=== PATIENT | male | born 1960 | race Two or more races ===

== ENCOUNTER 2020-07-14 10:06 | Outpatient (REF) | payer OTHER, SELFPAY ==
[2020-07-14 11:20] LABS: Alanine Aminotransferase 42 U/L (0-40); Albumin Level 4.4 g/dL (3.5-5.0); Alkaline Phosphatase 82 U/L (39-117); Anion Gap 11 (12-20); Aspartate Amino Transferase 30 U/L (5-37); Bilirubin Total 0.5 mg/dL (0.0-1.0); Blood Urea Nitrogen 14 mg/dL (9-16); Calcium 9.5 mg/dL (8.4-10.2); Carbon Dioxide 25 mmol/L (22-29); Chloride 106 mmol/L (96-108); Cholesterol 197 mg/dL; Estimated Glomerular Filt Rate > 60; Glucose Fasting 112 mg/dL (60-99); HDL Cholesterol 32 mg/dL; LDL Cholesterol Calculated 115 mg/dl; Potassium 4.8 mmol/l (3.3-5.1); Sodium 137 mmol/L (135-145); Total Protein 7.5 g/dL (6.5-8.0); Triglycerides 252 mg/dL
[2020-07-14 11:42] LABS: Vitamin D 25-OH Total 25.3 ng/mL (>30)
== END 2020-07-14 10:07 | disposition home or self-care (01) ==
LOC: HO.LAB 10:06
PROVIDERS: PCP Internal Medicine; Visit Provider Internal Medicine
DX: E78.00 Pure hypercholesterolemia, unspecified (principal); E55.9 Vitamin D deficiency, unspecified; I10 Essential (primary) hypertension
CPT/HCPCS: 80053; 80061; 82306

== ENCOUNTER 2020-10-18 10:48 | Outpatient (REF) | payer OTHER, SELFPAY | END 2020-10-18 10:49 | disposition home or self-care (01) | LOC: HO.LAB 10:48 | PROVIDERS: PCP Internal Medicine; Visit Provider Internal Medicine | DX: Z20.822 Contact with and (suspected) exposure to COVID-19 (principal) | CPT/HCPCS: 36415; C9803; U0003 ==

== ENCOUNTER 2020-11-21 09:48 | Outpatient (REF) | payer OTHER, SELFPAY ==
[2020-11-21 11:31] LABS: Alanine Aminotransferase 41 U/L (0-40); Albumin Level 4.3 g/dL (3.5-5.0); Alkaline Phosphatase 81 U/L (39-117); Anion Gap 12 (12-20); Aspartate Amino Transferase 29 U/L (5-37); Bilirubin Total 0.5 mg/dL (0.0-1.0); Blood Urea Nitrogen 10 mg/dL (9-16); Calcium 9.2 mg/dL (8.4-10.2); Carbon Dioxide 27 mmol/L (22-29); Chloride 106 mmol/L (96-108); Cholesterol 128 mg/dL; Estimated Glomerular Filt Rate > 60; Glucose Fasting 112 mg/dL (60-99); HDL Cholesterol 28 mg/dL; LDL Cholesterol Calculated 73 mg/dl; Potassium 4.7 mmol/L (3.3-5.1); Sodium 140 mmol/L (135-145); Total Protein 7.3 g/dL (6.5-8.0); Triglycerides 139 mg/dL
== END 2020-11-21 09:49 | disposition home or self-care (01) ==
LOC: HO.LAB 09:48
PROVIDERS: PCP Internal Medicine; Visit Provider Internal Medicine
DX: E78.2 Mixed hyperlipidemia (principal)
CPT/HCPCS: 36415; 80053; 80061

== ENCOUNTER 2021-05-31 09:11 | Outpatient (REF) | payer OTHER, SELFPAY ==
[2021-05-31 10:05] LABS: Alanine Aminotransferase 38 U/L (0-40); Albumin Level 4.2 g/dL (3.5-5.0); Alkaline Phosphatase 69 U/L (39-117); Anion Gap 14 (12-20); Aspartate Amino Transferase 26 U/L (5-37); Bilirubin Total 0.6 mg/dL (0.0-1.0); Blood Urea Nitrogen 12 mg/dL (9-16); Calcium 9.2 mg/dL (8.4-10.2); Carbon Dioxide 28 mmol/L (22-29); Chloride 102 mmol/L (96-108); Cholesterol 197 mg/dL; Estimated Glomerular Filt Rate > 60; Glucose Fasting 101 mg/dL (60-99); HDL Cholesterol 30 mg/dL; LDL Cholesterol Calculated 128 mg/dl; Potassium 4.6 mmol/L (3.3-5.1); Sodium 139 mmol/L (135-145); Total Protein 6.7 g/dL (6.5-8.0); Triglycerides 199 mg/dL
== END 2021-05-31 09:12 | disposition home or self-care (01) ==
LOC: HO.LAB 09:11
PROVIDERS: PCP Internal Medicine; Visit Provider Internal Medicine
DX: E78.2 Mixed hyperlipidemia (principal); E78.5 Hyperlipidemia, unspecified
CPT/HCPCS: 36415; 80053; 80061

== ENCOUNTER 2021-06-14 09:12 | Outpatient (REF) | payer OTHER, SELFPAY ==
--- NOTE | ~2021-06-14 | XR_ITS ---
EXAMINATION: XR CHEST CLINICAL INFORMATION: Asthma. COMPARISON: None TECHNIQUE: 2 views of the chest were obtained. FINDINGS: The lungs are clear. The cardiomediastinal silhouette is normal in size. There is no pleural effusion or pneumothorax. No acute osseous abnormality. XR/XR chest 2V IMPRESSION: No acute cardiopulmonary findings.
== END 2021-06-14 09:13 | disposition home or self-care (01) ==
LOC: HO.XRAY 09:12
PROVIDERS: PCP Internal Medicine; Visit Provider Internal Medicine
DX: J45.909 Unspecified asthma, uncomplicated (principal)
CPT/HCPCS: 71046

== ENCOUNTER 2022-03-02 07:29 | Outpatient (REF) | payer OTHER, SELFPAY ==
--- NOTE | ~2022-03-02 | XR_ITS ---
EXAMINATION: XR CHEST CLINICAL INFORMATION: Cough COMPARISON: Previous chest x-ray May 2021 TECHNIQUE: 2 views of the chest were obtained. FINDINGS: The cardiac and mediastinal contours are normal. The lungs are clear. There is no pleural effusion or pneumothorax. There are degenerative changes of the spine. XR/XR chest 2V IMPRESSION: No evidence for acute disease in the chest.
[2022-03-02 08:30] LABS: Alanine Aminotransferase 33 U/L (0-40); Albumin Level 4.2 g/dL (3.5-5.0); Alkaline Phosphatase 79 U/L (39-117); Anion Gap 13 (12-20); Aspartate Amino Transferase 25 U/L (5-37); Bilirubin Total 0.6 mg/dL (0.0-1.0); Blood Urea Nitrogen 12 mg/dL (9-16); Calcium 9.6 mg/dL (8.4-10.2); Carbon Dioxide 26 mmol/L (22-29); Chloride 104 mmol/L (96-108); Cholesterol 176 mg/dL; Estimated Glomerular Filt Rate > 60; Glucose Fasting 97 mg/dL (60-99); HDL Cholesterol 25 mg/dL; LDL Cholesterol Calculated 79 mg/dl; Potassium 4.6 mmol/L (3.3-5.1); Sodium 138 mmol/L (135-145); Total Protein 7.1 g/dL (6.5-8.0); Triglycerides 363 mg/dL
== END 2022-03-02 07:30 | disposition home or self-care (01) ==
LOC: HO.XRAY 07:29
PROVIDERS: PCP Internal Medicine; Visit Provider Internal Medicine
DX: R05.9 Cough, unspecified (principal); I10 Essential (primary) hypertension; E78.5 Hyperlipidemia, unspecified
CPT/HCPCS: 36415; 71046; 80053; 80061

== ENCOUNTER → 2022-07-30 13:40 | Outpatient (REF) | payer OTHER, SELFPAY ==
--- NOTE | 2022-07-30 13:44 | CA_ITS ---
Transthoracic Echocardiogram Patient (Last, First, Middle): Phillip Buchanan, Gender: Male Date of : 1960 Age: 62 Procedure Date: 07/30/2022 Procedure Type: Transthoracic Echocardiogram Location: OP Height: 167.64 cm Weight: 104.33 kg BSA: 2.12 m2 Heart Rate: 70 bpm BP: 128 / 82 mmHg Devops Solutions Architect: SB Referring MD: Leslye Mcgowan MD Symptoms: R01.1 - Cardiac murmur, unspecified Study Quality: Fair ECG Rhythm: Sinus Conclusions: - The left ventricular systolic function is normal. The calculated ejection fraction is 62% by biplane method. - Mildly increased right ventricular cavity size. - No obvious valvular pathology seen on this study. - There is mild dilatation of the ascending aorta measuring 3.90 cm. Findings Left Ventricle Normal left ventricular cavity size. The left ventricular systolic function is normal. The calculated ejection fraction is 62% by biplane method. There is no evidence of regional wall motion abnormalities. Diastolic function is normal for age. There is mild septal asymmetric hypertrophy. LV peak global longitudinal strain measurement does not appear reliable. Right Ventricle Mildly increased right ventricular cavity size. There is normal right ventricular systolic function. Atria Both atria are normal in size. Aortic Valve There is a normal trileaflet aortic valve. There is no aortic valve stenosis. There is no aortic valve regurgitation. Mitral Valve The mitral valve appears normal. There is no mitral valve regurgitation. There is no mitral valve stenosis. Pulmonic Valve The pulmonic valve is likely normal. Tricuspid Valve Normal tricuspid valve structure. There is mild tricuspid valve regurgitation. There is no evidence of pulmonary hypertension. Great Vessels There is mild dilatation of the ascending aorta measuring 3.90 cm. Venous The inferior vena cava was not well visualized. Pericardium/Pleural There is no evidence of pericardial effusion. Prior Study Comparison No prior study available for comparison. Recommendations, Care & Conclusions No obvious valvular pathology seen on this study. Measurements 2D Linear Measurements IVSd: 1.24 0.6-0.9/0.6-1.0 cm LVIDd: 5.07 3.9-5.3/4.2-5.9 cm LVIDd Index: 2.39 2.4-3.2/2.2-3.1 cm/m2 LVIDs: 3.61 2.0-3.6 cm LVPWd: 0.78 0.7-1.1 cm LA Diam: 3.70 2.7-3.8/3.0-4.0 cm LAIDs Index: 1.75 1.5-2.3 cm/m2 LV Mass: 235.75 67-162/88-224 g LV Mass Index: 111.20 43-95/49-115 g/m2 LVOT Diam: 2.40 3.0+(-)1.3 cm 2D Systolic Function EF 4C: 59.10 >55% EF 2C: 66.10 >55% EF BiP: 62.10 >55% Mitral Valve MV Pk E: 0.61 MV PK A: 0.67 MV Decel Time: 190.00 E/A: 0.90 E'Lateral: 11.40 E'Medial: 4.35 E/E' Med: 14.10 E/E' Lat: 5.40 PHT: 56.00 MVA PHT: 3.93 Decel [place]: 3.21 Aortic Valve AoV Pk Zeeshan: 1.44 AoV Mn Zeeshan: 0.92 AoV VTI: 0.28 AoV Pk Grad: 8.00 Aov Mn Grad: 4.00 RADU Cont.VTI: 3.81 LVOT LVOT Pk Zeeshan: 1.24 LVOT Mn Zeeshan: 0.83 LVOT VTI: 0.23 LVOT Pk Grad: 6.00 LVOT Mn Grad: 3.00 LVOT Diam: 2.40 LVOT Area: 4.52 Diastolic Function MV Pk E: 0.61 MV Pk A: 0.67 E/A: 0.90 E'Medial: 4.35 E/E' Med: 14.10 E' Laterial: 11.40 E/E' Lat: 5.40 Right Ventricle TAPSE (mm): 19.70 TVS' Zeeshan: 9.14 Tricuspid Valve TR Pk Zeeshan: 2.15 TR Pk Grad: 18.00 RA Press: 3.00 RVSP: 21.00 Great Vessels Aorta Sinus of Valsalva: 3.30 2.0-3.5 cm Ao Asc: 3.90 2.1-3.4 cm Pulmonary Valve PV Pk Zeeshan: 1.02 Peak PV Grad: 4.00 Updated in Other Vendor System with Status of Final Chapincito Baumann MD electronically signed on 07/31/2022 11:56:39 AM with status of Final
== END ==
LOC: HO.CARD 13:40
PROVIDERS: PCP Internal Medicine; Visit Provider Internal Medicine
DX: R01.1 Cardiac murmur, unspecified (principal); R60.0 Localized edema
CPT/HCPCS: 93306

== ENCOUNTER → 2022-10-18 09:07 | Outpatient (BNVA) | payer OTHER, SELFPAY | PROVIDERS: PCP Internal Medicine; Referring Provider Internal Medicine; Visit Provider Internal Medicine | DX: I77.810 Thoracic aortic ectasia (principal); I10 Essential (primary) hypertension; G47.33 Obstructive sleep apnea (adult) (pediatric) | CPT/HCPCS: 93005; 99202 ==

== ENCOUNTER → 2022-10-24 14:36 | Outpatient (REF) | payer OTHER, SELFPAY | LOC: HO.SL 14:36 | PROVIDERS: PCP Internal Medicine; Visit Provider Internal Medicine | DX: G47.33 Obstructive sleep apnea (adult) (pediatric) (principal); I77.810 Thoracic aortic ectasia | CPT/HCPCS: 95806 ==

== ENCOUNTER 2022-11-26 09:07 | Outpatient (REF) | payer OTHER, SELFPAY ==
[2022-11-26 12:58] LABS: Alanine Aminotransferase 37 U/L (0-40); Albumin Level 4.3 g/dL (3.5-5.0); Alkaline Phosphatase 67 U/L (39-117); Anion Gap 11 (12-20); Aspartate Amino Transferase 25 U/L (5-37); Bilirubin Total 0.5 mg/dL (0.0-1.0); Blood Urea Nitrogen 14 mg/dL (9-16); Calcium 9.2 mg/dL (8.4-10.2); Carbon Dioxide 27 mmol/L (22-29); Chloride 106 mmol/L (96-108); Cholesterol 204 mg/dL; Estimated Glomerular Filt Rate > 60; Glucose Fasting 92 mg/dL (60-99); HDL Cholesterol 27 mg/dL; LDL Cholesterol Calculated 111 mg/dl; Potassium 4.7 mmol/L (3.3-5.1); Sodium 139 mmol/L (135-145); Total Protein 7.4 g/dL (6.5-8.0); Triglycerides 334 mg/dL
[2022-11-26 13:25] LABS: Vitamin D 25-OH Total 10.9 ng/mL (>30)
== END 2022-11-26 09:08 | disposition home or self-care (01) ==
LOC: HO.LAB 09:07
PROVIDERS: PCP Internal Medicine; Visit Provider Internal Medicine
DX: E55.9 Vitamin D deficiency, unspecified (principal); E78.2 Mixed hyperlipidemia
CPT/HCPCS: 36415; 80053; 80061; 82306

== ENCOUNTER → 2022-12-05 09:56 | Outpatient (BNVA) | payer OTHER, SELFPAY | PROVIDERS: PCP Internal Medicine; Visit Provider Internal Medicine | DX: G47.33 Obstructive sleep apnea (adult) (pediatric) (principal); R40.0 Somnolence; J30.9 Allergic rhinitis, unspecified; E66.9 Obesity, unspecified; Z68.36 Body mass index [BMI] 36.0-36.9, adult | CPT/HCPCS: 99202 ==

== ENCOUNTER → 2023-02-07 09:26 | Outpatient (BNVA) | payer OTHER, SELFPAY | PROVIDERS: PCP Internal Medicine; Visit Provider Internal Medicine | DX: G47.33 Obstructive sleep apnea (adult) (pediatric) (principal); E66.9 Obesity, unspecified; Z68.36 Body mass index [BMI] 36.0-36.9, adult | CPT/HCPCS: 99212 ==

== ENCOUNTER 2023-04-09 09:02 | Outpatient (REF) | payer OTHER, SELFPAY ==
[2023-04-09 11:22] LABS: Alanine Aminotransferase 41 U/L (0-40); Alkaline Phosphatase 46 U/L (39-117); Anion Gap 13 (12-20); Aspartate Amino Transferase 31 U/L (5-37); Bilirubin Total 0.4 mg/dL (0.0-1.0); Blood Urea Nitrogen 12 mg/dL (9-16); Calcium 9.3 mg/dL (8.4-10.2); Carbon Dioxide 18 mmol/L (22-29); Chloride 109 mmol/L (96-108); Cholesterol 120 mg/dL; Estimated Glomerular Filt Rate > 60; Glucose Fasting 95 mg/dL (60-99); HDL Cholesterol 30 mg/dL; LDL Cholesterol Calculated 67 mg/dl; Potassium 4.5 mmol/L (3.3-5.1); Sodium 135 mmol/L (135-145); Total Protein 7.2 g/dL (6.5-8.0); Triglycerides 118 mg/dL
== END 2023-04-09 09:03 | disposition home or self-care (01) ==
LOC: HO.LAB 09:02
PROVIDERS: PCP Internal Medicine; Visit Provider Internal Medicine
DX: E78.5 Hyperlipidemia, unspecified (principal); I10 Essential (primary) hypertension
CPT/HCPCS: 36415; 80053; 80061

== ENCOUNTER 2023-04-16 09:25 | Outpatient (AMB) | payer OTHER, SELFPAY ==
[2023-04-16 09:27] VITALS: BP 124/80; BMI 36.6
--- NOTE | 2023-04-16 09:27 | A.OFFPC_ITS ---
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 Accompanied by: Self / Same As Patient Allergies lisinopril Allergy (Intermediate, Verified 04/16/23 09:50) dry cough Medication List - Last Reconciled 04/16/23 by Leslye Mcgowan MD atorvastatin 20 mg PO BEDTIME 90 days fenofibrate 160 mg PO DAILY 90 days losartan 50 mg PO DAILY 90 days mirtazapine 15 mg PO BEDTIME PRN miscellaneous medical supply (Blood Pressure Cuff) As directed pantoprazole 40 mg PO DAILY PRN pseudoephedrine HCl ER 120 mg PO Q12H PRN 30 days simethicone (Gas Relief (simethicone)) 250 mg (2 x 125 mg) PO BID PRN 30 days Tobacco use date assessed: 12/04/22 Dental Screening Dental Screen Date: 04/16/23 Did you have a dental visit in the last 12 months?: Yes Did you have a dental problem in the last 6 months where you did not have access to dental care?: No Was dental information given to patient?: Patient has dentist HPI HPI Comments History of Present Illness Details This is a 62-year-old male with hypertension, mixed hyperlipidemia, GERD and mild recurrent major depression that complains of low back pain rad iating to the right leg that has been present for few months. No fever, bowel or bladder incontinence. Pain aggravated by activity. I will start him on physical therapy. Blood pressure stable. Cholesterol and triglycerides well controlled with medications. GERD stable with medications. Depression also stable with mirtazapine. No chest pain or shortness of breath. [facility] Medical History (Updated 04/16/23 @ 09:53 by Leslye Mcgowan MD) Allergic rhinitis Anxiety Asthma Cough Daytime sleepiness Essential hypertension GERD (gastroesophageal reflux disease) Insomnia Knee osteoarthritis Mild recurrent major depression Mixed hyperlipidemia Obese Obesity (BMI 30-39.9) MITCHELL (obstructive sleep apnea) Surgical History History of nephrolithiasis Family History Father Hypertension Mother Diabetes CVD (cardiovascular disease) Renal insufficiency Brother In good health Sister In good health Sister In good health Sister No problems noted. Son In good health Son In good health Son In good health Daughter In good health Social History Housing: Apartment Alcohol intake: never Patient Tobacco Use Status: Former Tobacco user Quit Date: 2021 Tobacco use type: Cigarette Cigarettes Per Day: 2 e-Cigarette/Vaping Use: Never Used Second Hand Smoke Exposure: No service: No Current occupational status: employed Current occupational exposures/hazards: No Cognitive needs: No Hearing needs: No Vision needs: Yes Questionnaire Thrive Questionnaire Date Thrive assessed: 12/04/22 SALIMA-7 AMB Questionnaire SALIMA-7 Date SALIMA - 7 assessed: 12/04/22 Source: Developed by Drs. Michael Barroso, Sonali Ortiz, Cain Low and colleagues, with an educational julian from [employer]. Review of Systems Const All systems reviewed & are unremarkable except as noted in HPI and below Eyes Reports no additional complaints, Denies change in vision and Denies other visual disturbances Card Denies chest pain at rest, Denies chest pain with activity, Denies edema, Denies irregular heart rhythm, Denies claudication, Denies dyspnea, Denies dyspnea on exertion, Denies orthopnea, Denies paroxysmal nocturnal dyspnea and Denies slow heart rate Resp Denies cough, Denies dyspnea and Denies dyspnea on exertion GI Denies abdominal pain, Denies change in bowel habits, Denies excessive flatus, Denies nausea and Denies vomiting Denies urinary hesitancy, Denies urinary incontinence and Denies urinary urgency Musc Denies abnormal gait, Reports back pain, Denies atrophy, Denies deformity and Reports radiating pain into limb Skin/Breast Denies bleeding lesions, Denies changing lesions and Denies rash Neuro Denies abnormal gait and Denies lack of coordination Physical exam (Primary Care) Vital Signs: Last Vital Signs BP 124/80 04/16/23 09:27 BMI result Body Mass Index 36.6 Tobacco/Smoking Status: Tobacco use Status Tobacco use date assessed 12/04/22 04/16/23 09:32 Patient Tobacco Use Status Former Tobacco user 04/16/23 09:32 Tobacco use type Cigarette 04/16/23 09:32 e-Cigarette/Vaping Use Never Used 04/16/23 09:32 Thrive Assessment: Date of Thrive Assessment Date Thrive assessed 12/04/22 04/16/23 09:32 Eyes General: appearance normal, both eyes and all related structures Eyelids: Yes eyelids normal Conjunctivae: conjunctivae normal Neck Neck: Yes normal visual inspection and Yes supple Resp Effort & Inspection: normal respiratory effort Auscultation: clear to auscultation bilaterally Cardio Jugular venous distension: no JVD Rate: regular rate Rhythm: regular rhythm Heart sounds: S1 normal heart sound present and S2 normal heart sound present Extrem General: Yes full ROM Assessment and Plan Assessment & Plan (1) Mild recurrent major depression: Code(s): F33.0 - Major depressive disorder, recurrent, mild Plan: Continue mirtazapine. (2) Essential hypertension: Code(s): I10 - Essential (primary) hypertension Plan: Continue losartan. Blood pressure goal is equal or less than 130/80 (3) Mixed hyperlipidemia: Code(s): E78.2 - Mixed hyperlipidemia Plan: Continue statins and fibrates. (4) GERD (gastroesophageal reflux disease): Code(s): K21.9 - Gastro-esophageal reflux disease without esophagitis Qualifiers: Esophagitis presence: esophagitis presence not specified Qualified Code(s): K21.9 - Gastro-esophageal reflux disease without esophagitis Plan: Continue pantoprazole as needed (5) Lumbar degenerative disc disease: Code(s): M51.36 - Other intervertebral disc degeneration, lumbar region Plan: Start Mapap. Start physical therapy. Orders: Orders PT Evaluation and Treatment Today M51.36 - Other intervertebral disc degeneration, lumbar region Medications: New acetaminophen ER (Mapap Arthritis Pain) 1,300 mg (2 x 650 mg) PO Q8H PRN 180 tabs 2RF pain 30 days Coding Level of Care Code Est Pt Level 4 (23645) Diagnoses Mild recurrent major depression F33.0 Essential hypertension I10 Mixed hyperlipidemia E78.2 GERD (gastroesophageal reflux disease) K21.9 Esophagitis presence: esophagitis presence not specified Lumbar degenerative disc disease M51.36 Time Spent (min) 22
== END 2023-04-16 10:02 | disposition home or self-care (01) ==
PROVIDERS: PCP Internal Medicine; Visit Provider Internal Medicine
DX: F33.0 Major depressive disorder, recurrent, mild (principal); I10 Essential (primary) hypertension; E78.2 Mixed hyperlipidemia; K21.9 Gastro-esophageal reflux disease without esophagitis; M51.36 Other intervertebral disc degeneration, lumbar region
CPT/HCPCS: 99214

== ENCOUNTER 2023-06-07 10:00 | Outpatient (RCR) | payer OTHER, SELFPAY ==
[2023-05-06 13:59] VITALS: BP 134/76; PULSE 71
--- NOTE | 2023-05-06 14:54 | MHC.PT.EP ---
[facility] [place] Office [place] Office [place] Office [address] Gabbi Diamond [address] [phone] F: [phone] F: [phone] F: [phone] F: [phone] Physical Therapy Plan of Care Date of Evaluation: Date of Surgery: NA Diagnosis: Lumbar degenerative disc disease Assessment: Phillip is a 62 year old male who is referred to PT for lumbar degenerative disc disease . He reports of having pain in his back for many years however it got worse about 1 year back. He denies any trauma or falls. On PT examination he presents with 3-8/10 pain which gets worse with supine lying, bending over and sitting for more than 30 minutes, decreased lumbar ROM, decreased muscle strength, and altered posture. Due to these impairments he has difficulty bending over, sitting for more than 30 minutes and performing ADLS without a break. 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 He would benefit from skilled PT to address the aforementioned impairments and improve tolerance to functional activities. Frequency and Duration: The patient will be seen 2/week for 5 weeks Short Term Goals: 1. Pt will have 50% decrease in pain which will enable him to tolerate supine lying without pain in 2 weeks. 2. Pt will be able to move trunk through all planes of motion without pain which will enable him to dress his lower body in 3 weeks. Skilled Nursing Goals: 1. Pt will demonstrate an increase in muscle strength by 1 grade which will enable him to tolerate cleaning for work without pain in 4 weeks. 2. Pt will be independent with all HEP for symptom management and maintenance following d/c in 5 weeks. Treatment Plan: Modalities to reduce pain, spasms and effusion. Manual therapy to restore motion and function. Therapeutic exercise to improve strength and flexibility. Neuromuscular re-education for posture and balance. Therapeutic activities to return to functional activities of daily living. Electronically signed by: Cristal Swain PT DPT Please sign and return to therapist. Thank you for your referral.
--- NOTE | 2023-06-07 15:34 | MHC.PT.DC ---
[facility] [place] Office [place] Office [place] Office [address] Gabbi Diamond [address] [phone] F: [phone] F: [phone] F: [phone] F: [phone] Physical Therapy Discharge Report Diagnosis: Lumbar degenerative disc disease Date of Surgery: NA Date of Evaluation: 05/06/23 Date of Discharge: 06/07/23 Treatments to Date: 10 Cancellations to Date: 0 No Shows to Date: Discharge Status: Achieved Goals Improved Function Independent with HEP Discharge Summary: Phillip has completed 10 PT visits and arrived stating he is feeling better. He has been doing all his HEP and is independent with them. He has achieved all goals set for him. He is therefore being d/c from PT. Phillip was in agreement with the plan. I reviewed all exercises with him today. Electronically signed by: Cristal Swain PT DPT Please sign and return to therapist. Thank you for your referral.
== END 2023-06-07 15:34 | disposition home or self-care (01) ==
LOC: HO.PT 10:00
PROVIDERS: PCP Internal Medicine; Visit Provider Internal Medicine
DX: M51.36 Other intervertebral disc degeneration, lumbar region (principal)
CPT/HCPCS: 97110; 97112; 97161; 97530

== ENCOUNTER 2023-06-19 09:12 | Outpatient (AMB) | payer OTHER, SELFPAY ==
[2023-06-19 09:38] VITALS: BP 102/60; PULSE 66; O2SAT 98; BMI 36.2
--- NOTE | 2023-06-19 09:38 | MHC.OFFVIS ---
Intake Vital Signs 06/19/23 09:38 Height 5 ft 6.5 in Weight 228 lb BMI 36.2 BP 102/60 Blood Pressure Location Lt brachial Position Sitting Pulse 66 Pulse Source Pulse Oximeter Pulse Oximetry (%) 98 Oxygen Delivery Method Room Air Intake Visit Reasons: Obstructive sleep apnea Intake Note: pt is here for follow up and states he is using his cpap and only has congestion in the nose. 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 Allergies lisinopril Allergy (Intermediate, Verified 06/19/23 09:53) dry cough Medication List - Last Reconciled 06/19/23 by Christine Connolly MD acetaminophen ER (Mapap Arthritis Pain) 1,300 mg (2 x 650 mg) PO Q8H PRN 30 days atorvastatin 20 mg PO BEDTIME 90 days fenofibrate 160 mg PO DAILY 90 days fluticasone propionate 50 mcg/actuation (Flonase Allergy Relief) 1 spray intranasal BID losartan 50 mg PO DAILY 90 days mirtazapine 15 mg PO BEDTIME 90 days miscellaneous medical supply (Blood Pressure Cuff) As directed pantoprazole 40 mg PO DAILY PRN pseudoephedrine HCl ER 120 mg PO Q12H PRN 30 days simethicone (Gas Relief (simethicone)) 250 mg (2 x 125 mg) PO BID PRN 30 days Do you need a note to return to daycare/school/sports/work: No HPI Obstructive sleep apnea HPI Details TAMMY is 62 years old very pleasant gentleman who is grossly obese with diagnosis of obstructive sleep apnea. He has been using his CPAP very regularly every night and sleeps well. There is a minor air leak issue, which does not disturb his sleep. Wakes up refreshed, and denies any daytime sleepiness. He is trying to control his weight and has lost about 3 lb since his last visit. He has no issues with the mask or CPAP machine. [facility] Medical History Obesity (BMI 30-39.9) Cough Mild recurrent major depression Asthma Obese Daytime sleepiness MITCHELL (obstructive sleep apnea) Insomnia Anxiety Allergic rhinitis Knee osteoarthritis Mixed hyperlipidemia GERD (gastroesophageal reflux disease) Essential hypertension Surgical History History of nephrolithiasis Family History Father Hypertension Mother Diabetes CVD (cardiovascular disease) Renal insufficiency Brother In good health Sister In good health Sister In good health Sister No problems noted. Son In good health Son In good health Son In good health Daughter In good health Social History Housing: Apartment Alcohol intake: never Patient Tobacco Use Status: Former Tobacco user Quit Date: 2021 Tobacco use type: Cigarette Cigarettes Per Day: 2 e-Cigarette/Vaping Use: Never Used Second Hand Smoke Exposure: No service: No Current occupational status: employed Current occupational exposures/hazards: No Cognitive needs: No Hearing needs: No Vision needs: Yes Review of Systems Const All systems reviewed & are unremarkable except as noted in HPI and below Eyes Reports no additional complaints ENT Reports nasal congestion (OFF AND ON) Card Denies irregular heart rhythm and Denies lightheadedness Resp Reports as per HPI GI Reports dyspepsia and Reports heartburn (BEING TREATED FOR GERD SYMPTOMS) Reports no additional complaints Musc Reports arthralgias (KNEES) Skin/Breast Reports system reviewed and no additional complaints, except as documented Neuro Reports no additional complaints Psych Reports no additional complaints Endo Reports no additional complaints Physical Exam Vital Signs: Last Vital Signs Pulse 66 06/19/23 09:38 BP 102/60 06/19/23 09:38 Pulse Ox 98 06/19/23 09:38 Oxygen Delivery Method Room Air 06/19/23 09:38 BMI result Body Mass Index 36.2 Const General: comfortable, no acute distress, alert and awake Orientation/consciousness: patient oriented x3 HEENT Other: HE HAS A ROUND FACE AND VERY SHORT AND OBESE NECK. Head: Yes normal to inspection General nose exam: No nasal polyps present and No nasal discharge present Face and sinus: Yes sinuses nontender Mouth: oropharynx abnormals (OROPHARYNX IS NARROW AND CROWDED, MALLAMPATI CLASS 4) Throat: Yes posterior oropharynx normal Eyes General: appearance normal, both eyes and all related structures Neck Neck: Yes normal visual inspection, Yes no lymphadenopathy, Yes trachea midline, Yes no JVD and Yes other (NECK CIRCUMFERENCE 18 IN) Thyroid: Thyroid normal Chest Chest palpation & inspection: normal inspection of the chest, normal palpation of entire chest wall and no tenderness Resp Other: PERCUSSION NOTE RESONANT, BREATH SOUNDS ARE EQUAL AND NORMAL ON BOTH SIDES, NO WHEEZES OR CREPITATIONS ARE HEARD Cardio Palpation: normal PMI Rate: regular rate Rhythm: regular rhythm Heart sounds: no gallops and no murmurs Peripheral pulses: Peripheral pulses 2+ throughout GI Inspection: Yes other (ABDOMEN IS OBESE AND SLIGHTLY PROTUBERANT) Palpation (GI): Soft to palpation, nontender, No hepatosplenomegaly present and no masses Auscultation: normal bowel sounds Back/Spine/Pelvis Thoracic/Lumbar Spine: thoracic and lumbar spine normal to inspection Skin General skin exam: no rashes or lesions noted Neuro General: patient oriented x3 and no focal motor deficits Cranial nerves: Yes CN's II-XII intact bilaterally Extrem General: Yes normal to inspection, Yes no clubbing, cyanosis or edema and Yes no calf tenderness Psych Speech and movement: Normal speech and movement present Results Reviewed Results Reviewed: Compliance report for the last 30 nights is reviewed he has used the CPAP 30/30 nights, 100%. Average use per night. 6 hours 49 minutes There is a slight air. Leak but he does not feel it Residual AHI 0.8 which is excellent Assessment & Plan Assessment & Plan (1) Obesity (BMI 30-39.9): Comment: EXPLAINED TO THE PATIENT ABOUT HIS WEIGHT ISSUE. START WALKING DAILY AND SHOULD LOSE WEIGHT GRADUALLY. Code(s): E66.9 - Obesity, unspecified (2) MITCHELL (obstructive sleep apnea): Comment: PATIENT HAS RATHER SEVERE DEGREE OF OBSTRUCTIVE SLEEP APNEA, WITH TOTAL SLEEP TIME AHI 40. HE HAS BEEN USING CPAP VERY REGULARLY AND SLEEPING WELL . HE IS REMAINING VERY COMPLIANT AND DEFINITELY BENEFITING. I COMMENDED HIM FOR GOOD COMPLIANCE. ADVISED TO CONTINUE USING IT FOR AT LEAST 6 HOURS EVERY NIGHT. NEXT STEP IS TO START WALKING AND LOSING SOME WEIGHT. Code(s): G47.33 - Obstructive sleep apnea (adult) (pediatric) (3) Allergic rhinitis: Comment: HE HAS SYMPTOMS OF ALLERGIC RHINITIS. HAS BEEN USING PSEUDO EPHEDRINE 120 MG P.R.N. WHICH I HAVE TOLD HIM NOT TO USE. IS BETTER TO USE FLONASE 50 MG 2 SPRAY EACH NOSTRIL DAILY Code(s): J30.9 - Allergic rhinitis, unspecified Coding Level of Care Code Est Pt Level 3 (96311) Diagnoses Obesity (BMI 30-39.9) E66.9 MITCHELL (obstructive sleep apnea) G47.33 Allergic rhinitis J30.9
== END 2023-06-19 09:52 | disposition home or self-care (01) ==
PROVIDERS: PCP Internal Medicine; Visit Provider Internal Medicine
DX: E66.9 Obesity, unspecified (principal); G47.33 Obstructive sleep apnea (adult) (pediatric); J30.9 Allergic rhinitis, unspecified
CPT/HCPCS: 99213

== ENCOUNTER → 2023-06-19 09:12 | Outpatient (BNVA) | payer OTHER, SELFPAY | PROVIDERS: Visit Provider Internal Medicine | DX: G47.33 Obstructive sleep apnea (adult) (pediatric) (principal); J30.9 Allergic rhinitis, unspecified; E66.9 Obesity, unspecified; Z68.36 Body mass index [BMI] 36.0-36.9, adult | CPT/HCPCS: 99212 ==

== ENCOUNTER 2023-09-16 09:45 | Outpatient (AMB) | payer OTHER, SELFPAY ==
[2023-09-16 09:50] VITALS: BP 118/80; BMI 36.1
--- NOTE | 2023-09-16 09:50 | A.OFFPC_ITS ---
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 Accompanied by: Self / Same As Patient Allergies lisinopril Allergy (Intermediate, Verified 09/16/23 09:57) dry cough Medication List - Last Reconciled 09/16/23 by Leslye Mcgowan MD acetaminophen ER (Mapap Arthritis Pain) 1,300 mg (2 x 650 mg) PO Q8H PRN 30 days atorvastatin 20 mg PO BEDTIME 90 days fenofibrate 160 mg PO DAILY 90 days fluticasone propionate 50 mcg/actuation (Flonase Allergy Relief) 1 spray intra nasal BID losartan 50 mg PO DAILY 90 days mirtazapine 15 mg PO BEDTIME 90 days miscellaneous medical supply (Blood Pressure Cuff) As directed pantoprazole 40 mg PO DAILY PRN pseudoephedrine HCl ER 120 mg PO Q12H PRN 30 days simethicone (Gas Relief (simethicone)) 250 mg (2 x 125 mg) PO BID PRN 30 days Tobacco use date assessed: 12/04/22 Dental Screening Dental Screen Date: 09/16/23 Did you have a dental visit in the last 12 months?: Yes Did you have a dental problem in the last 6 months where you did not have access to dental care?: No Was dental information given to patient?: Patient has dentist HPI HPI Comments History of Present Illness Details This is a 63-year-old male with mild recurrent major depression, mixed hyperlipidemia, hypertension and GERD that comes today for follow-up on his conditions. Depression stable with mirtazapine. Cholesterol and triglycerides has markedly improved with medication. Blood pressure stable with losartan. GERD stable with PPIs. No chest pain or shortness of breath. [facility] Medical History Obesity (BMI 30-39.9) Cough Mild recurrent major depression Asthma Obese Daytime sleepiness MITCHELL (obstructive sleep apnea) Insomnia Anxiety Allergic rhinitis Knee osteoarthritis Mixed hyperlipidemia GERD (gastroesophageal reflux disease) Essential hypertension Surgical History History of nephrolithiasis Family History Father Hypertension Mother Diabetes CVD (cardiovascular disease) Renal insufficiency Brother In good health Sister In good health Sister In good health Sister No problems noted. Son In good health Son In good health Son In good health Daughter In good health Social History Housing: Apartment Alcohol intake: never Patient Tobacco Use Status: Former Tobacco user Quit Date: 2021 Tobacco use type: Cigarette Cigarettes Per Day: 2 e-Cigarette/Vaping Use: Never Used Second Hand Smoke Exposure: No service: No Current occupational status: employed Current occupational exposures/hazards: No Cognitive needs: No Hearing needs: No Vision needs: Yes Questionnaire Thrive Questionnaire Date Thrive assessed: 12/04/22 SALIMA-7 AMB Questionnaire SALIMA-7 Date SALIMA - 7 assessed: 12/04/22 Source: Developed by Drs. Michael Barroso, Sonali Ortiz, Cain Low and colleagues, with an educational julian from [employer]. Review of Systems Const All systems reviewed & are unremarkable except as noted in HPI and below Eyes Reports no additional complaints, Denies change in vision and Denies other visual disturbances Card Denies chest pain at rest, Denies chest pain with activity, Denies edema, Denies irregular heart rhythm, Denies claudication, Denies dyspnea, Denies dyspnea on exertion, Denies orthopnea, Denies paroxysmal nocturnal dyspnea and Denies slow heart rate Resp Denies cough, Denies dyspnea and Denies dyspnea on exertion GI Denies abdominal pain, Denies change in bowel habits, Denies excessive flatus, Denies nausea and Denies vomiting Denies urinary hesitancy, Denies urinary incontinence and Denies urinary urgency Musc Denies abnormal gait, Denies atrophy, Denies deformity and Denies limited range of motion Skin/Breast Denies bleeding lesions, Denies changing lesions and Denies rash Neuro Denies abnormal gait and Denies lack of coordination Physical exam (Primary Care) Vital Signs: Last Vital Signs BP 118/80 09/16/23 09:50 BMI result Body Mass Index 36.1 Tobacco/Smoking Status: Tobacco use Status Tobacco use date assessed 12/04/22 09/16/23 09:53 Patient Tobacco Use Status Former Tobacco user 09/16/23 09:53 Tobacco use type Cigarette 09/16/23 09:53 e-Cigarette/Vaping Use Never Used 09/16/23 09:53 Thrive Assessment: Date of Thrive Assessment Date Thrive assessed 12/04/22 09/16/23 09:53 Eyes General: appearance normal, both eyes and all related structures Eyelids: Yes eyelids normal Conjunctivae: conjunctivae normal Neck Neck: Yes normal visual inspection and Yes supple Resp Effort & Inspection: normal respiratory effort Auscultation: clear to auscultation bilaterally Cardio Jugular venous distension: no JVD Rate: regular rate Rhythm: regular rhythm Heart sounds: S1 normal heart sound present and S2 normal heart sound present Extrem General: Yes full ROM Assessment and Plan Assessment & Plan (1) Mild recurrent major depression: Code(s): F33.0 - Major depressive disorder, recurrent, mild Plan: Continue mirtazapine. (2) Mixed hyperlipidemia: Code(s): E78.2 - Mixed hyperlipidemia Plan: Continue fibrates and statins. (3) Essential hypertension: Code(s): I10 - Essential (primary) hypertension Plan: Continue losartan. Blood pressure goal is equal or less than 130/80. (4) GERD (gastroesophageal reflux disease): Code(s): K21.9 - Gastro-esophageal reflux disease without esophagitis Qualifiers: Esophagitis presence: esophagitis presence not specified Qualified Code(s): K21.9 - Gastro-esophageal reflux disease without esophagitis Plan: Continue PPIs prn. Orders: Orders Lipid Panel 6 Months E78.5 - Hyperlipidemia, unspecified Vitamin D 25-OH Total 6 Months E55.9 - Vitamin D deficiency, unspecified Comprehensive [place]. Panel Fast 6 Months J45.30 - Mild persistent asthma, uncomplicated Medications: New cholecalciferol (vitamin D3) 25 mcg PO DAILY 90 caps 1RF 90 days Coding Level of Care Code Est Pt Level 4 (57623) Diagnoses Mild recurrent major depression F33.0 Mixed hyperlipidemia E78.2 Essential hypertension I10 Gastroesophageal reflux disease, unspecified whether esophagitis present K21.9 Esophagitis presence: esophagitis presence not specified Time Spent (min) 23
== END 2023-09-16 10:03 | disposition home or self-care (01) ==
PROVIDERS: PCP Internal Medicine; Visit Provider Internal Medicine
DX: F33.0 Major depressive disorder, recurrent, mild (principal); E78.2 Mixed hyperlipidemia; I10 Essential (primary) hypertension; J45.30 Mild persistent asthma, uncomplicated; K21.9 Gastro-esophageal reflux disease without esophagitis
CPT/HCPCS: 99214

== ENCOUNTER → 2023-10-01 09:33 | Outpatient (REF) | payer OTHER, SELFPAY ==
--- NOTE | 2023-10-01 09:36 | CA_ITS ---
Transthoracic Echocardiogram Patient (Last, First, Middle): Phillip Buchanan, Gender: Male Date of : 1960 Age: 63 Procedure Date: 10/01/2023 Procedure Type: Transthoracic Echocardiogram Location: OP Height: 167.64 cm Weight: 102.97 kg BSA: 2.11 m2 Heart Rate: bpm BP: 120 / 80 mmHg Mailroom Manager: Referring MD: Chapincito Baumann MD Symptoms: I77.810 - Thoracic aortic ectasia Study Quality: Fair ECG Rhythm: Sinus Conclusions: - The left ventricular systolic function is normal. The visually estimated ejection fraction is between 55-60%. - No obvious valvular pathology seen on this study. Findings Left Ventricle Normal left ventricular cavity size. The left ventricular systolic function is normal. The visually estimated ejection fraction is between 55-60%. There is no evidence of regional wall motion abnormalities. Diastolic function is normal for age. There is mild septal asymmetric hypertrophy. Right Ventricle Normal right ventricular cavity size and systolic function. Atria Both atria are normal in size. Aortic Valve There is a normal trileaflet aortic valve. There is no aortic valve stenosis. There is no aortic valve regurgitation. Mitral Valve The mitral valve appears normal. There is no mitral valve regurgitation. There is no mitral valve stenosis. Pulmonic Valve There is trace pulmonic valve regurgitation. Tricuspid Valve Normal tricuspid valve structure. There is mild tricuspid valve regurgitation. There is no evidence of pulmonary hypertension. Great Vessels There is mild dilatation of the ascending aorta measuring 3.90 cm. Venous The inferior vena cava was not well visualized. Pericardium/Pleural There is no evidence of pericardial effusion. Prior Study Comparison No significant change compared to prior study dated: 07/30/2022. Recommendations, Care & Conclusions No obvious valvular pathology seen on this study. Measurements 2D Linear Measurements IVSd: 1.24 0.6-0.9/0.6-1.0 cm LVIDd: 5.06 3.9-5.3/4.2-5.9 cm LVIDd Index: 2.40 2.4-3.2/2.2-3.1 cm/m2 LVIDs: 3.31 2.0-3.6 cm LVPWd: 0.87 0.7-1.1 cm Ao Root: 3.60 2.1-3.5 cm LA Diam: 3.80 2.7-3.8/3.0-4.0 cm LAIDs Index: 1.80 1.5-2.3 cm/m2 LV Mass: 248.29 67-162/88-224 g LV Mass Index: 117.67 43-95/49-115 g/m2 LVOT Diam: 2.30 3.0+(-)1.3 cm 2D Systolic Function EF 4C: 64.10 >55% EF 2C: 47.90 >55% EF BiP: 55.10 >55% Mitral Valve MV Pk E: 0.78 MV PK A: 0.69 MV Decel Time: 170.00 E/A: 1.10 E'Lateral: 6.74 E'Medial: 7.07 E/E' Med: 11.00 E/E' Lat: 11.50 PHT: 50.00 MVA PHT: 4.40 Decel Butts: 4.56 Aortic Valve AoV Pk Zeeshan: 1.42 AoV Mn Zeeshan: 0.99 AoV VTI: 0.28 AoV Pk Grad: 8.00 Aov Mn Grad: 4.00 RADU Cont.VTI: 3.23 LVOT LVOT Pk Zeeshan: 1.13 LVOT Mn Zeeshan: 0.77 LVOT VTI: 0.22 LVOT Pk Grad: 5.00 LVOT Mn Grad: 3.00 LVOT Diam: 2.30 LVOT Area: 4.15 Diastolic Function MV Pk E: 0.78 MV Pk A: 0.69 E/A: 1.10 E'Medial: 7.07 E/E' Med: 11.00 E' Laterial: 6.74 E/E' Lat: 11.50 Right Ventricle TAPSE (mm): 28.00 TVS' Zeeshan: 11.00 Tricuspid Valve TR Pk Zeeshan: 1.76 TR Pk Grad: 12.00 RA Press: 3.00 RVSP: 15.00 Great Vessels Aorta Ao Root-2D: 3.60 2.0-3.7 cm Ao Asc: 3.90 2.1-3.4 cm Updated in Other Vendor System with Status of Final Chapincito Baumann MD electronically signed on 10/01/2023 11:59:28 AM with status of Final
== END ==
LOC: HO.CARD 09:33
PROVIDERS: Visit Provider Internal Medicine
DX: I77.810 Thoracic aortic ectasia (principal)
CPT/HCPCS: 93306

== ENCOUNTER → 2023-10-01 09:36 | Outpatient (BNV) | payer OTHER, SELFPAY | PROVIDERS: Visit Provider Internal Medicine | DX: I36.1 Nonrheumatic tricuspid (valve) insufficiency (principal) | CPT/HCPCS: 93306 ==

== ENCOUNTER 2023-10-21 08:40 | Outpatient (AMB) | payer OTHER, SELFPAY ==
--- NOTE | 2023-10-21 09:13 | A.OFFVIS_ITS ---
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 Accompanied by: Self / Same As Patient Allergies lisinopril Allergy (Intermediate, Verified 10/21/23 09:19) dry cough Medication List - Last Reconciled 10/21/23 by Chapincito Baumann MD acetaminophen ER (Mapap Arthritis Pain) 1,300 mg (2 x 650 mg) PO Q8H PRN 30 days atorvastatin 20 mg PO BEDTIME 90 days cholecalciferol (vitamin D3) 25 mcg PO DAILY 90 days fenofibrate 160 mg PO DAILY 90 days fluticasone propionate 50 mcg/actuation (Flonase Allergy Relief) 1 spray intranasal BID losartan 50 mg PO DAILY 90 days mirtazapine 15 mg PO BEDTIME miscellaneous medical supply (Blood Pressure Cuff) As directed pantoprazole 40 mg PO DAILY PRN pseudoephedrine HCl ER 120 mg PO Q12H PRN 30 days simethicone (Gas Relief (simethicone)) 250 mg (2 x 125 mg) PO BID PRN 30 days HPI HPI Comments History of Present Illness Details Phillip returns for follow up. In the past seen regarding ascending aortic dilatation. No previous cardiac history including coronary artery disease or myocardial infarction or cardiomyopathy. Seems to be on medications for hypertension, dyslipidemia. He states that recently he is noticing symptoms of chest discomfort when he is walking. Then he rests and feels better. Could be anginal. [facility] Medical History Obesity (BMI 30-39.9) Cough Mild recurrent major depression Asthma Obese Daytime sleepiness MITCHELL (obstructive sleep apnea) Insomnia Anxiety Allergic rhinitis Knee osteoarthritis Mixed hyperlipidemia GERD (gastroesophageal reflux disease) Essential hypertension Surgical History History of nephrolithiasis Family History Father Hypertension Mother Diabetes CVD (cardiovascular disease) Renal insufficiency Brother In good health Sister In good health Sister In good health Sister No problems noted. Son In good health Son In good health Son In good health Daughter In good health Social History Housing: Apartment Alcohol intake: never Patient Tobacco Use Status: Former Tobacco user Quit Date: 2021 Tobacco use type: Cigarette Cigarettes Per Day: 2 e-Cigarette/Vaping Use: Never Used Second Hand Smoke Exposure: No service: No Current occupational status: employed Current occupational exposures/hazards: No Cognitive needs: No Hearing needs: No Vision needs: Yes Review of Systems Const Denies weakness ENT Denies dizziness Card Denies chest pain with activity, Denies syncope, Denies rapid heart rate, Denies pedal edema, Denies edema, Denies leg edema, Denies lightheadedness, Denies palpitations, Denies dyspnea, Denies dyspnea on exertion and Denies orthopnea Resp Denies cough, Denies dyspnea and Denies dyspnea on exertion GI Denies hematochezia and Denies change in stool character Musc Denies abnormal gait, Denies muscle cramps, Denies muscle weakness, Denies numbness, Denies radiating pain into limb and Denies tingling Neuro Denies abnormal gait, Denies dizziness, Denies syncope, Denies numbness, Denies tingling and Denies weakness Endo Denies palpitations Physical Exam Vital Signs: Last Vital Signs Pulse 58 10/21/23 09:18 BP 122/82 10/21/23 09:18 BMI result Body Mass Index 36.4 Const General: comfortable and no acute distress Orientation/consciousness: patient oriented x3 HEENT Other: Unremarkable Head: Yes normal to inspection Neck Neck: Yes normal visual inspection Chest Chest palpation & inspection: normal inspection of the chest Resp Auscultation: clear to auscultation bilaterally Cardio Palpation: normal PMI Heart sounds: S1 normal heart sound present, S2 normal heart sound present, no gallops, no murmurs and no rubs GI Palpation (GI): Soft to palpation Back/Spine/Pelvis Other: unremarkable Skin General skin exam: no rashes or lesions noted Neuro General: patient oriented x3 Extrem General: Yes normal to inspection Psych Mental Status: mental status grossly normal Office Procedures EKG Details: EKG with sinus, 58/min, no significant ST-T changes, normal OR/QTc. [id number], Complete Assessment & Plan Assessment & Plan (1) Ascending aorta dilatation: Code(s): I77.810 - Thoracic aortic ectasia Plan: Stable at 3.9cm. Can be followed periodically. (2) Precordial chest pain: Code(s): R07.2 - Precordial pain Plan: He describes exertional chest pain. Obtain stress echo. (3) Essential hypertension: Code(s): I10 - Essential (primary) hypertension Plan: Stable. (4) MICTHELL (obstructive sleep apnea): Comment: PATIENT HAS RATHER SEVERE DEGREE OF OBSTRUCTIVE SLEEP APNEA, WITH TOTAL SLEEP TIME AHI 40. HE HAS BEEN USING CPAP VERY REGULARLY AND SLEEPING WELL . HE IS REMAINING VERY COMPLIANT AND DEFINITELY BENEFITING. I COMMENDED HIM FOR GOOD COMPLIANCE. ADVISED TO CONTINUE USING IT FOR AT LEAST 6 HOURS EVERY NIGHT. NEXT STEP IS TO START WALKING AND LOSING SOME WEIGHT. Code(s): G47.33 - Obstructive sleep apnea (adult) (pediatric) Plan: CPAP Orders: Orders CA echo stress exercise Today R07.2 - Precordial pain Medications: Changed From mirtazapine 15 mg PO BEDTIME 90 days 90 tabs 1RF F33.0 - Major depressive disorder, recurrent, mild To mirtazapine 15 mg PO BEDTIME F33.0 - Major depressive disorder, recurrent, mild Coding Level of Care Code Est Pt Level 4 (69299) Diagnoses Ascending aorta dilatation I77.810 Precordial chest pain R07.2 Essential hypertension I10 MITCHELL (obstructive sleep apnea) G47.33 CPT Codes EKG - CPT: [id number], Complete ([id number])
[2023-10-21 09:18] VITALS: BP 122/82; PULSE 58; BMI 36.4
== END 2023-10-21 09:39 | disposition home or self-care (01) ==
PROVIDERS: Visit Provider Internal Medicine
DX: I77.810 Thoracic aortic ectasia (principal); R07.2 Precordial pain; I10 Essential (primary) hypertension; G47.33 Obstructive sleep apnea (adult) (pediatric)
CPT/HCPCS: 93010; 99214

== ENCOUNTER → 2023-10-21 08:40 | Outpatient (BNVA) | payer OTHER, SELFPAY | PROVIDERS: Visit Provider Internal Medicine | DX: I77.810 Thoracic aortic ectasia (principal); R07.2 Precordial pain; I10 Essential (primary) hypertension; G47.33 Obstructive sleep apnea (adult) (pediatric) | CPT/HCPCS: 93005; 99212 ==

== ENCOUNTER → 2023-11-14 10:26 | Outpatient (REF) | payer OTHER, SELFPAY ==
--- NOTE | 2023-11-14 10:28 | CA_ITS ---
Acquisition Time: 2023-11-14 10:36:56 Total Exercise Time: 00:06:32 Test Indications: CHEST PAIN Medications: ATORVASTATIN FENOFIBRATE FLONASE MIRTAZAPINE PANTOPRAZOLE PSEUDOPHEDRINE Protocol: MADONNA Max HR: 166 BPM 105% of Pred: 158 BPM Max BP: 174/084 mmHG Max Work Load: 7.8 METS Exercise stress test exercise 6 min 32 sec of Buce protocol achieving 93% MPHR, with moderate SOB, no chest discomfort, with isolated PACs, with normotensive response to exercise, without EKG changes. Echo images obtained by tech at rest and immediately post peak exercise. Definity contrast used. Test reviewed with Dr. Ahmadi STRESS ECHO : Technique : Images were obtained at rest and immediately post exercise within 1 minute. Definity contrast was used to enhance endocardial definition. Images were obtianed in multiple views and compared side to side. Findings : Images at rest are of adequate quality. LV systolic function is normal with normal wall motion. Post exercise images are of borderline quality due to off axis views. There is good augmentation of overall LV systolic function with no apparent regional wall motion abnormalities. LV diastolic function and RVSP are within normal limits on post exercise imaging. Conclusion : Stress echocardiogram is negative for myocardial ischemia. Referred By: Chapincito Baumann Overread By: JAG LOYA MD
== END ==
LOC: HO.CARD 10:26
PROVIDERS: Visit Provider Internal Medicine
DX: R07.2 Precordial pain (principal)
CPT/HCPCS: 93350; Q9957

== ENCOUNTER → 2023-11-14 10:28 | Outpatient (BNV) | payer OTHER, SELFPAY | PROVIDERS: Visit Provider Internal Medicine Cardiovascular Disease | DX: R06.02 Shortness of breath (principal) | CPT/HCPCS: 93016; 93018; 93350; 93352 ==

== ENCOUNTER 2023-12-10 08:29 | Outpatient (AMB) | payer OTHER, SELFPAY ==
--- NOTE | 2023-12-10 08:32 | A.OFFVIS_ITS ---
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 Accompanied by: Self / Same As Patient Allergies lisinopril Allergy (Intermediate, Verified 10/21/23 09:19) dry cough Medication List - Last Reconciled 12/10/23 by Mirtha Beltran NP-C acetaminophen ER (Mapap Arthritis Pain) 1,300 mg (2 x 650 mg) PO Q8H PRN 30 days atorvastatin 20 mg PO BEDTIME 90 days cholecalciferol (vitamin D3) 25 mcg PO DAILY 90 days fenofibrate 160 mg PO DAILY 90 days losartan 50 mg PO DAILY 90 days mirtazapine 15 mg PO BEDTIME 90 days miscellaneous medical supply (Blood Pressure Cuff) As directed pantoprazole 40 mg PO DAILY PRN pseudoephedrine HCl ER 120 mg PO Q12H PRN 30 days HPI follow up testing HPI Details Phillip is a 63-year-old male past medical history of obesity, hypertension, hyperlipidemia, dilated ascending aorta who reported some chest discomfort last visit and underwent stress echocardiogram. Today he reports that he does have some chest discomfort at times when doing activities that require exertion. Even using a tapping machine operator automatic it is difficult to get a full description of his symptom. Has shortness of breath when walking distances. No shortness of breath at rest, PND, orthopnea or edema. No presyncope, syncope, falls. Taking all meds as directed. Certified tapping machine operator automatic used. [facility] Medical History Obesity (BMI 30-39.9) Cough Mild recurrent major depression Asthma Obese Daytime sleepiness MITCHELL (obstructive sleep apnea) Insomnia Anxiety Allergic rhinitis Knee osteoarthritis Mixed hyperlipidemia GERD (gastroesophageal reflux disease) Essential hypertension Surgical History History of nephrolithiasis Family History Father Hypertension Mother Diabetes CVD (cardiovascular disease) Renal insufficiency Brother In good health Sister In good health Sister In good health Sister No problems noted. Son In good health Son In good health Son In good health Daughter In good health Social History Housing: Apartment Alcohol intake: never Patient Tobacco Use Status: Former Tobacco user Quit Date: 2021 Tobacco use type: Cigarette Cigarettes Per Day: 2 e-Cigarette/Vaping Use: Never Used Second Hand Smoke Exposure: No service: No Current occupational status: employed Current occupational exposures/hazards: No Cognitive needs: No Hearing needs: No Vision needs: Yes Review of Systems Const All systems reviewed & are unremarkable except as noted in HPI and below Denies chills, Denies fatigue, Denies fever(s), Denies frequent falls, Denies weakness, Denies weight gain and Denies weight loss ENT Denies dizziness Card Details: vague chest discomfort at times with activity Denies chest pain, Denies leg edema, Denies lightheadedness, Denies palpitations, Denies dyspnea and Reports dyspnea on exertion Resp Denies cough, Denies dyspnea and Reports dyspnea on exertion GI Denies hematochezia Musc Denies abnormal gait, Denies muscle weakness, Denies numbness, Denies radiating pain into limb and Denies tingling Neuro Denies abnormal gait, Denies dizziness, Denies frequent falls, Denies numbness, Denies tingling and Denies weakness Endo Denies fatigue and Denies palpitations Physical Exam Vital Signs: Last Vital Signs Pulse 72 12/10/23 08:33 BP 120/80 12/10/23 08:33 BMI result Body Mass Index 36.4 Const Other: obese General: cooperative, healthy appearing, comfortable and no acute distress Orientation/consciousness: patient oriented x3 Neck Neck: Yes normal visual inspection and Yes no JVD Resp Effort & Inspection: normal respiratory effort Auscultation: clear to auscultation bilaterally, no rales, no rhonchi and no wheezes Cardio Jugular venous distension: no JVD Rate: regular rate Rhythm: regular rhythm Heart sounds: S1 normal heart sound present, S2 normal heart sound present, no murmurs and no rubs Skin General skin exam: no rashes or lesions noted Neuro General: patient oriented x3 Extrem General: Yes normal to inspection, No no pedal edema and No calf tenderness Psych Appearance: grossly normal Mental Status: mental status grossly normal Speech and movement: Normal speech and movement present Assessment & Plan Assessment & Plan (1) Precordial chest pain: Code(s): R07.2 - Precordial pain Plan: Reports of vague chest symptoms with walking. He does get shortness of breath with exertional activities. Cardiac risk factors of hypertension, hyperlipidemia and obesity. No known CAD. He did undergo a stress echocardiogram on 11/14/2023 with exercise 6-1/2 minutes with moderate shortness of breath, no chest discomfort, no EKG or echo evidence of ischemia. Full echo done on 10/01/2023 showed EF 55-60%, no valve abnormalities and no regional wall motion abnormalities. EKG done on last visit 10/21/2023 showed sinus bradycardia, no acute ST or T-wave abnormalities, rate 58. Today he continues to report some vague sounding symptoms. With tapping machine operator automatic reviewed the signs and symptoms of angina. Instructed him to call if his symptoms are increasing. Emergency care for symptoms not relieved by rest. Continue with risk factor modification including good blood pressure and cholesterol control. Benefits a weight loss reviewed. Continue physical activity as tolerated. Cardiology office visit 6 months, sooner if needed. (2) Ascending aorta dilatation: Code(s): I77.810 - Thoracic aortic ectasia Plan: Last echocardiogram showing dilated ascending aorta 3.9 cm. We will continue to follow with periodic echoes. Blood pressure is controlled (3) Essential hypertension: Code(s): I10 - Essential (primary) hypertension Plan: Blood pressure normal range today, 120/80. Continue on losartan. (4) Sleep apnea: Code(s): G47.30 - Sleep apnea, unspecified Plan: Home sleep study done 11/01/2022 shows severe obstructive sleep apnea. He does have CPAP mask and reports compliance. He follows with pulmonology. Plan Time spent on chart review, documentation, interview and assessment Coding Level of Care Code Est Pt Level 3 (35729) Diagnoses Precordial chest pain R07.2 Ascending aorta dilatation I77.810 Essential hypertension I10 Sleep apnea G47.30 Time Spent (min) 24
[2023-12-10 08:33] VITALS: BP 120/80; PULSE 72; BMI 36.4
== END 2023-12-10 08:56 | disposition home or self-care (01) ==
PROVIDERS: Visit Provider Nurse Practitioner Family
DX: R07.2 Precordial pain (principal); I77.810 Thoracic aortic ectasia; I10 Essential (primary) hypertension; G47.30 Sleep apnea, unspecified
CPT/HCPCS: 99213

== ENCOUNTER → 2023-12-10 08:29 | Outpatient (BNVA) | payer OTHER, SELFPAY | PROVIDERS: Visit Provider Nurse Practitioner Family | DX: R07.2 Precordial pain (principal); I77.810 Thoracic aortic ectasia; I10 Essential (primary) hypertension | CPT/HCPCS: 99212 ==

== ENCOUNTER 2023-12-11 09:14 | Outpatient (AMB) | payer OTHER, SELFPAY ==
[2023-12-11 09:25] VITALS: BP 102/68; PULSE 62; O2SAT 98; BMI 36.4
--- NOTE | 2023-12-11 09:25 | A.OFFVIS_ITS ---
Intake Vital Signs 12/11/23 09:25 Height 5 ft 6.5 in Weight 229 lb 4.492 oz BMI 36.4 BP 102/68 Blood Pressure Location Lt brachial Position Sitting Pulse 62 Pulse Source Pulse Oximeter Pulse Oximetry (%) 98 Oxygen Delivery Method Room Air Intake Visit Reasons: Obstructive sleep apnea Intake Note: pt is here for follow up of MITCHELL and is doing well Director Family Required: No Allergies lisinopril Allergy (Intermediate, Verified 12/11/23 09:41) dry cough Medication List - Last Reconciled 12/11/23 by Christine Connolly MD acetaminophen ER (Mapap Arthritis Pain) 1,300 mg (2 x 650 mg) PO Q8H PRN 30 days atorvastatin 20 mg PO BEDTIME 90 days cholecalciferol (vitamin D3) 25 mcg PO DAILY 90 days fenofibrate 160 mg PO DAILY 90 days losartan 50 mg PO DAILY 90 days mirtazapine 15 mg PO BEDTIME 90 days miscellaneous medical supply (Blood Pressure Cuff) As directed pantoprazole 40 mg PO DAILY PRN Do you need a note to return to daycare/school/sports/work: No HPI Obstructive sleep apnea HPI Details This 63 years old very pleasant gentleman is here for his 6 months follow-up for the sleep apnea. He uses CPAP every night without any fail and sleeps good. He has offering no complaints related to the mask or CPAP device. Weight has not changed. He has not been able to lose much weight. [facility] Medical History Obesity (BMI 30-39.9) Cough Mild recurrent major depression Asthma Obese Daytime sleepiness MITCHELL (obstructive sleep apnea) Insomnia Anxiety Allergic rhinitis Knee osteoarthritis Mixed hyperlipidemia GERD (gastroesophageal reflux disease) Essential hypertension Surgical History History of nephrolithiasis Family History Father Hypertension Mother Diabetes CVD (cardiovascular disease) Renal insufficiency Brother In good health Sister In good health Sister In good health Sister No problems noted. Son In good health Son In good health Son In good health Daughter In good health Social History Housing: Apartment Alcohol intake: never Patient Tobacco Use Status: Former Tobacco user Quit Date: 2021 Tobacco use type: Cigarette Cigarettes Per Day: 2 e-Cigarette/Vaping Use: Never Used Second Hand Smoke Exposure: No service: No Current occupational status: employed Current occupational exposures/hazards: No Cognitive needs: No Hearing needs: No Vision needs: Yes Review of Systems Const All systems reviewed & are unremarkable except as noted in HPI and below Eyes Reports no additional complaints ENT Reports nasal congestion (OFF AND ON) Card Denies irregular heart rhythm and Denies lightheadedness Resp Reports as per HPI GI Reports dyspepsia and Reports heartburn (BEING TREATED FOR GERD SYMPTOMS) Reports no additional complaints Musc Reports arthralgias (KNEES) Skin/Breast Reports system reviewed and no additional complaints, except as documented Neuro Reports no additional complaints Psych Reports no additional complaints Endo Reports no additional complaints Physical Exam Vital Signs: Last Vital Signs Pulse 62 12/11/23 09:25 BP 102/68 12/11/23 09:25 Pulse Ox 98 12/11/23 09:25 Oxygen Delivery Method Room Air 12/11/23 09:25 BMI result Body Mass Index 36.4 Const General: comfortable, no acute distress, alert and awake Orientation/consciousness: patient oriented x3 HEENT Other: HE HAS A ROUND FACE AND VERY SHORT AND OBESE NECK. Head: Yes normal to inspection General nose exam: No nasal polyps present and No nasal discharge present Face and sinus: Yes sinuses nontender Mouth: oropharynx abnormals (OROPHARYNX IS NARROW AND CROWDED, MALLAMPATI CLASS 4) Throat: Yes posterior oropharynx normal Eyes General: appearance normal, both eyes and all related structures Neck Neck: Yes normal visual inspection, Yes no lymphadenopathy, Yes trachea midline, Yes no JVD and Yes other (NECK CIRCUMFERENCE 18 IN) Thyroid: Thyroid normal Chest Chest palpation & inspection: normal inspection of the chest, normal palpation of entire chest wall and no tenderness Resp Other: PERCUSSION NOTE RESONANT, BREATH SOUNDS ARE EQUAL AND NORMAL ON BOTH SIDES, NO WHEEZES OR CREPITATIONS ARE HEARD Cardio Palpation: normal PMI Rate: regular rate Rhythm: regular rhythm Heart sounds: no gallops and no murmurs Peripheral pulses: Peripheral pulses 2+ throughout GI Inspection: Yes other (ABDOMEN IS OBESE AND SLIGHTLY PROTUBERANT) Palpation (GI): Soft to palpation, nontender, No hepatosplenomegaly present and no masses Auscultation: normal bowel sounds Back/Spine/Pelvis Thoracic/Lumbar Spine: thoracic and lumbar spine normal to inspection Skin General skin exam: no rashes or lesions noted Neuro General: patient oriented x3 and no focal motor deficits Cranial nerves: Yes CN's II-XII intact bilaterally Extrem General: Yes normal to inspection, Yes no clubbing, cyanosis or edema and Yes no calf tenderness Psych Speech and movement: Normal speech and movement present Results Reviewed Results Reviewed: Compliance report for the last 30 nights is reviewed He has used 30/30 nights, 100%. Average use per night 7 hours 58 minutes. Pressure used is mostly 19 cm.. No significant air leak residual AHI only 1.4 Assessment & Plan Assessment & Plan (1) Obesity (BMI 30-39.9): Comment: Obesity is his chronic problem. Remains stable and he has not been able to lose much weight. Code(s): E66.9 - Obesity, unspecified Plan: EXPLAINED TO THE PATIENT ABOUT HIS WEIGHT ISSUE. START WALKING DAILY AND SHOULD LOSE WEIGHT GRADUALLY. (2) MITCHELL (obstructive sleep apnea): Comment: PATIENT HAS RATHER SEVERE DEGREE OF OBSTRUCTIVE SLEEP APNEA, WITH TOTAL SLEEP TIME AHI 40. HE HAS BEEN USING CPAP VERY REGULARLY AND SLEEPING WELL . HE IS REMAINING VERY COMPLIANT AND DEFINITELY BENEFITING. Code(s): G47.33 - Obstructive sleep apnea (adult) (pediatric) Plan: I COMMENDED HIM FOR GOOD COMPLIANCE. ADVISED TO CONTINUE USING IT FOR AT LEAST 6 HOURS EVERY NIGHT. (3) Allergic rhinitis: Comment: HE HAS SYMPTOMS OF ALLERGIC RHINITIS. Code(s): J30.9 - Allergic rhinitis, unspecified Plan: Use Flonase 1 spray in each nostril daily especially before putting on the CPAP mask. May use loratadine 10 mg once a day p.r.n. Coding Level of Care Code Est Pt Level 3 (53674) Diagnoses Obesity (BMI 30-39.9) E66.9 MITCHELL (obstructive sleep apnea) G47.33 Allergic rhinitis J30.9
== END 2023-12-11 09:42 | disposition home or self-care (01) ==
PROVIDERS: PCP Internal Medicine; Visit Provider Internal Medicine
DX: E66.9 Obesity, unspecified (principal); G47.33 Obstructive sleep apnea (adult) (pediatric); J30.9 Allergic rhinitis, unspecified
CPT/HCPCS: 99213

== ENCOUNTER → 2023-12-11 09:14 | Outpatient (BNVA) | payer OTHER, SELFPAY | PROVIDERS: PCP Internal Medicine; Visit Provider Internal Medicine | DX: G47.33 Obstructive sleep apnea (adult) (pediatric) (principal); F33.0 Major depressive disorder, recurrent, mild; E66.9 Obesity, unspecified; J30.9 Allergic rhinitis, unspecified | CPT/HCPCS: 99212 ==

== ENCOUNTER 2024-02-10 08:01 | Outpatient (REF) | payer OTHER, SELFPAY ==
[2024-02-10 09:18] LABS: Alanine Aminotransferase 39 U/L (0-40); Albumin Level 4.2 g/dL (3.5-5.0); Alkaline Phosphatase 53 U/L (39-117); Anion Gap 13 (12-20); Aspartate Amino Transferase 26 U/L (5-37); Bilirubin Total 0.4 mg/dL (0.0-1.0); Blood Urea Nitrogen 11 mg/dL (9-16); Calcium 9.2 mg/dL (8.4-10.2); Carbon Dioxide 19 mmol/L (22-29); Chloride 113 mmol/L (96-108); Cholesterol 98 mg/dL (<200); Estimated Glomerular Filt Rate > 60; Glucose Fasting 105 mg/dL (60-99); HDL Cholesterol 27 mg/dL (>40); LDL Cholesterol Calculated 53 mg/dL (<100); Potassium 3.8 mmol/L (3.3-5.1); Sodium 141 mmol/L (135-145); Total Protein 7.2 g/dL (6.5-8.0); Triglycerides 93 mg/dL (<150)
== END 2024-02-10 08:02 | disposition home or self-care (01) ==
LOC: HO.LAB 08:01
PROVIDERS: PCP Internal Medicine; Visit Provider Internal Medicine
DX: J45.30 Mild persistent asthma, uncomplicated (principal); E78.5 Hyperlipidemia, unspecified; E55.9 Vitamin D deficiency, unspecified
CPT/HCPCS: 36415; 80053; 80061; 82306

== ENCOUNTER 2024-02-18 10:03 | Outpatient (AMB) | payer OTHER, SELFPAY ==
[2024-02-18 10:14] VITALS: BP 110/76; BMI 35.6
--- NOTE | 2024-02-18 10:14 | MHC.PC.OV ---
Vital Signs 02/18/24 10:14 Height 5 ft 6.5 in Weight 224 lb BMI 35.6 BP 110/76 Blood Pressure Location Lt brachial Position Sitting Intake Visit Reasons: pe Intake Note: Patient here for a physical exam Magazine Journalist Required: No Accompanied by: Self / Same As Patient Allergies lisinopril Allergy (Intermediate, Verified 02/18/24 10:41) dry cough Medication List - Last Reconciled 02/18/24 by Leslye Mcgowan MD acetaminophen ER (Mapap Arthritis Pain) 1,300 mg (2 x 650 mg) PO Q8H PRN 30 days atorvastatin 20 mg PO BEDTIME 90 days cholecalciferol (vitamin D3) 25 mcg PO DAILY 90 days fenofibrate 160 mg PO DAILY 90 days losartan 50 mg PO DAILY 90 days mirtazapine 15 mg PO BEDTIME 90 days miscellaneous medical supply (Blood Pressure Cuff) As directed pantoprazole 40 mg PO DAILY PRN Tobacco use date assessed: 02/18/24 Dental Screening Dental Screen Date: 02/18/24 Did you have a dental visit in the last 12 months?: Yes Did you have a dental problem in the last 6 months where you did not have access to dental care?: No Was dental information given to patient?: Patient has dentist HPI HPI Comments History of Present Illness Details This is a 63-year-old male with mild recurrent major depression that comes for his physical exam. With mirtazapine still have trouble sleeping and I will increase mirtazapine. He does not see psychiatrist. Has not had a colonoscopy. Will be refer through open access. Denies any chest pain or shortness of breath. Complains of right shoulder pain and low back pain but has full active range of motion. No fever, bowel or bladder incontinence. [facility] Medical History (Updated 02/18/24 @ 11:15 by Leslye Mcgowan MD) Ascending aorta dilatation Obesity (BMI 30-39.9) Cough Mild recurrent major depression Asthma Obese Daytime sleepiness MITCHELL (obstructive sleep apnea) Insomnia Anxiety Allergic rhinitis Knee osteoarthritis Mixed hyperlipidemia GERD (gastroesophageal reflux disease) Essential hypertension Surgical History History of nephrolithiasis Family History Father Hypertension Mother Diabetes CVD (cardiovascular disease) Renal insufficiency Brother In good health Sister In good health Sister In good health Sister No problems noted. Son In good health Son In good health Son In good health Daughter In good health Social History Housing: Apartment Alcohol intake: never Patient Tobacco Use Status: Former Tobacco user Quit Date: 2021 Tobacco use type: Cigarette Cigarettes Per Day: 2 e-Cigarette/Vaping Use: Never Used Second Hand Smoke Exposure: No service: No Current occupational status: employed Current occupational exposures/hazards: No Cognitive needs: No Hearing needs: No Vision needs: Yes Questionnaire PHQ-9 Over the last 2 weeks, how often have you been bothered by any of the following problems? 1. Little interest or pleasure in doing things: several days 2. Feeling down, depressed, or hopeless: several days 3. Trouble falling or staying asleep, or sleeping too much: several days 4. Feeling tired or having little energy: several days 5. Poor appetite or overeating: not at all 6. Feeling bad about yourself - or that you are a failure or have let yourself or your family down: not at all 7. Trouble concentrating on things, such as reading the newspaper or watching television: not at all 8. Moving or speaking so slowly that other people could have noticed. Or the opposite - being so fidgety or restless that you have been moving around a lot more than usual: not at all 9. Thoughts that you would be better off or of hurting yourself in some way: not at all Total score: 4 Depression Screening Interpretation: Positive Depression Screening Follow-up: Existing condition Depression Screening Done: Yes 70530 - PHQ-9 Billing: Yes Source: Developed by Drs. Michael Barroso, Sonali Ortiz, Cain Low and colleagues, with an educational julian from [employer]. Thrive Questionnaire Date Thrive assessed: 02/18/24 I am a: Patient What is your living situation today?: I have a steady place to live Within the past 12 months, did the food you bought not last and you didn't have the money to get more?: Never true Within the past 12 months, did you worry whether your food would run out before you got money to buy more?: Never true Do you have trouble paying for medicines?: No Do you have trouble getting transportation to medical appointments?: No Do you have trouble paying your heating and electricity bill?: No Do you have trouble taking care of your child, family member or friend?: No Do you have trouble with day-to-day activities such as bathing, preparing meals, shopping, managing finances, etc.?: No Are you currently unemployed and looking for a job?: No Are you interested in more education?: No Please select the resources that you would like help with: None Currently or been in a relationship where the following occur: no concerns reported THRIVE Score: 0 AUDIT C Alcohol Use Questionnaire (AUDIT-C) 1. How often do you have a drink containing alcohol?: Never Total Score: 0 SALIMA-7 AMB Questionnaire SALIMA-7 Date SALIMA - 7 assessed: 02/18/24 Feeling nervous, anxious, or on edge: 1 = Several days Not being able to stop or control worryin = Not at all Worrying too much about different things: 1 = Several days Trouble relaxin = Not at all Being so restless that it is hard to sit still: 0 = Not at all Becoming easily annoyed or irritable: 0 = Not at all Feeling afraid as if something awful might happen: 0 = Not at all Total SALIMA-7 score (0-4 normal; 5-9 mild; 10-14 moderate; 15-21 severe): 2 Source: Developed by Drs. Michael Barroso, Sonali Ortiz, Cain Low and colleagues, with an educational julian from [employer]. SALIMA-7 Assessment Billing SALIMA-7 Assessment Tool: SALIMA-7 Assessment 18788 Review of Systems Const All systems reviewed & are unremarkable except as noted in HPI and below Eyes Reports no additional complaints, Denies change in vision and Denies other visual disturbances Card Denies chest pain at rest, Denies chest pain with activity, Denies edema, Denies irregular heart rhythm, Denies claudication, Denies dyspnea, Denies dyspnea on exertion, Denies orthopnea, Denies paroxysmal nocturnal dyspnea and Denies slow heart rate Resp Denies cough, Denies dyspnea and Denies dyspnea on exertion GI Denies abdominal pain, Denies change in bowel habits, Denies excessive flatus, Denies nausea and Denies vomiting Denies urinary hesitancy, Denies urinary incontinence and Denies urinary urgency Physical exam (Primary Care) Vital Signs: Last Vital Signs BP 110/76 02/18/24 10:14 BMI result Body Mass Index 35.6 BMI Assessment/Plan discussion: High BMI High, discussed plan: lifestyle, weight reduction, dietary and physical activity Tobacco/Smoking Status: Tobacco use Status Tobacco use date assessed 02/18/24 02/18/24 10:20 Patient Tobacco Use Status Former Tobacco user 02/18/24 10:20 Tobacco use type Cigarette 02/18/24 10:20 e-Cigarette/Vaping Use Never Used 02/18/24 10:20 PHQ-9: PHQ-9 Score PHQ-9: Total score 4 02/18/24 10:45 Depression Screening Interpretation: Positive Depression Screening Follow-up: Existing condition Thrive Assessment: Date of Thrive Assessment Date Thrive assessed 02/18/24 02/18/24 10:20 Currently or been in a relationship where the following occur: no concerns reported Const Orientation/consciousness: patient oriented x3 [facility] Head: Yes normal to inspection, Yes normocephalic and Yes atraumatic Ears: external ears normal Eyes General: appearance normal, both eyes and all related structures Eyelids: Yes eyelids normal Conjunctivae: conjunctivae normal Neck Neck: Yes normal visual inspection and Yes supple Resp Effort & Inspection: normal respiratory effort Auscultation: clear to auscultation bilaterally Cardio Jugular venous distension: no JVD Rate: regular rate Rhythm: regular rhythm Heart sounds: S1 normal heart sound present and S2 normal heart sound present GI Inspection: Yes normal to inspection Palpation (GI): Soft to palpation and nontender Auscultation: normal bowel sounds Skin General skin exam: no rashes or lesions noted Neuro General: patient oriented x3 and no focal motor deficits Extrem General: Yes full ROM Psych Appearance: grossly normal Assessment and Plan Assessment & Plan (1) Physical exam: Code(s): Z00.00 - Encounter for general adult medical examination without abnormal findings Plan: Repeat in a year. (2) Mild recurrent major depression: Code(s): F33.0 - Major depressive disorder, recurrent, mild Plan: Increase mirtazapine to 30 mg. Orders: Orders XR shoulder RT min 2V Today M25.511 - Pain in right shoulder XR lumbar spine 2-3V Today M54.50 - Low back pain, unspecified Referrals Open Access Screening Colonoscopy Referral Z12.11 - Encounter for screening for malignant neoplasm of colon Orthopedics Referral M25.511 - Pain in right shoulder Pain Management Referral M54.50 - Low back pain, unspecified Medications: New mirtazapine 30 mg PO BEDTIME 90 tabs 1RF 90 days Discontinued mirtazapine Discontinued Reason: Patient Completed Course 15 mg PO BEDTIME 90 days 90 tabs 1RF F33.0 - Major depressive disorder, recurrent, mild Coding Level of Care Code Est Pt Prev Care 40-64y(07599) Diagnoses Physical exam Z00.00 Mild recurrent major depression F33.0 Additional Codes SALIMA-7 Assessment Billing - SALIMA-7 Assessment Tool: SALIMA-7 Assessment 06651 ([id number]) Time Spent (min) 32
== END 2024-02-18 10:52 | disposition home or self-care (01) ==
PROVIDERS: PCP Internal Medicine; Visit Provider Internal Medicine
DX: Z00.00 Encounter for general adult medical examination without abnormal findings (principal); F33.0 Major depressive disorder, recurrent, mild; K21.9 Gastro-esophageal reflux disease without esophagitis
CPT/HCPCS: 99396

== ENCOUNTER 2024-02-18 11:05 | Outpatient (REF) | payer OTHER, SELFPAY ==
--- NOTE | ~2024-02-18 | XR_ITS ---
EXAMINATION: XR LUMBAR SPINE XR SHOULDER, RIGHT CLINICAL INFORMATION: Low back pain unspecified, patient states no injury, pain in right shoulder and lower back. COMPARISON: Lumbar spine 03/24/2019. Chest 03/02/2022. TECHNIQUE: 3 views of the lumbar spine. 5 views of the right shoulder. FINDINGS: Lumbar Spine: Mild dextroscoliosis of the lumbar spine. Straightening of the normal lumbar lordosis. Facet arthritis in the lower lumbar spine. Multilevel lumbar spondylosis with loss of disc space height most notable at L5-S1. Mild grade 1 retrolisthesis of L2 on L3, L3 on L4, and L5 on S1. Right Shoulder: Acromioclavicular and glenohumeral alignment preserved. Mild osteoarthritic changes. Mild hypertrophic change with narrowing along the subacromial space. XR/XR shoulder RT min 2V IMPRESSION: 1. Multilevel lumbar spondylosis most notable at L5-S1. 2. Mild osteoarthritic changes right shoulder.
--- NOTE | ~2024-02-18 | XR_ITS ---
EXAMINATION: XR LUMBAR SPINE XR SHOULDER, RIGHT CLINICAL INFORMATION: Low back pain unspecified, patient states no injury, pain in right shoulder and lower back. COMPARISON: Lumbar spine 03/24/2019. Chest 03/02/2022. TECHNIQUE: 3 views of the lumbar spine. 5 views of the right shoulder. FINDINGS: Lumbar Spine: Mild dextroscoliosis of the lumbar spine. Straightening of the normal lumbar lordosis. Facet arthritis in the lower lumbar spine. Multilevel lumbar spondylosis with loss of disc space height most notable at L5-S1. Mild grade 1 retrolisthesis of L2 on L3, L3 on L4, and L5 on S1. Right Shoulder: Acromioclavicular and glenohumeral alignment preserved. Mild osteoarthritic changes. Mild hypertrophic change with narrowing along the subacromial space. XR/XR lumbar spine 2-3V IMPRESSION: 1. Multilevel lumbar spondylosis most notable at L5-S1. 2. Mild osteoarthritic changes right shoulder.
== END 2024-02-18 11:06 | disposition home or self-care (01) ==
LOC: HO.XRAY 11:05
PROVIDERS: PCP Internal Medicine; Visit Provider Internal Medicine
DX: M25.511 Pain in right shoulder (principal); M54.50 Low back pain, unspecified
CPT/HCPCS: 72100; 73030

== ENCOUNTER 2024-03-05 09:19 | Outpatient (AMB) | payer OTHER, SELFPAY ==
--- NOTE | 2024-03-05 09:31 | A.OFFVIS_ITS ---
Vital Signs 03/05/24 09:39 Height 5 ft 6.5 in Weight 221 lb 8 oz BMI 35.2 BP 138/88 Blood Pressure Location Rt brachial Position Sitting Pulse 65 Pulse Source Pulse Oximeter Pulse Oximetry (%) 99 Oxygen Delivery Method Room Air Intake Visit Reasons: Low back pain, unspecified Watch Mechanic Required: Yes Watch Mechanic Language: Entry Level Java Developer Name: capri Accompanied by: Self / Same As Patient Allergies lisinopril Allergy (Intermediate, Verified 03/05/24 09:40) dry cough HPI Comments Details: Phillip is a very pleasant 63-year-old Kinyarwanda-speaking male who presents to the office today for evaluation management of his chronic lower back pain Visit was completed with supermarket manager Capri. Endorses lower back pain that has ongoing for greater than 1 year. Denies inciting injury, fall or trauma. Pain midline lower back without radiation down either lower extremity. He does endorse in frequent pain in the right thigh that does not travel past of the knee. Denies numbness, tingling, weakness of either lower extremity. Pain is worse with lifting, twisting and extension. Completed physical therapy greater than 1 year ago, states helped but pain has returned. He has been using Tylenol OTC and Salonpas patches with minimal impro vement. Denies previous attempts manual manipulation by chiropractor, acupuncture, massage or injections. Pain today is rated as 8/10, constant and worse in the mornings Denies red flag symptoms including new loss of bowel, bladder or saddle anesthesia In terms of muscle damage condition is described as stabbing, sharp, aching Pain is negatively impacting patient's enjoyment of life, recreational activities, ability to perform activities of daily living and sleep Patient denies use of alcohol, tobacco or illicit substances. Denies history of implantable devices, pacemaker or defibrillator Denies current use of anticoagulation medication [facility] Medical History (Updated 02/18/24 @ 11:15 by Leslye Mcgowan MD) Ascending aorta dilatation Obesity (BMI 30-39.9) Cough Mild recurrent major depression Asthma Obese Daytime sleepiness MITCHELL (obstructive sleep apnea) Insomnia Anxiety Allergic rhinitis Knee osteoarthritis Mixed hyperlipidemia GERD (gastroesophageal reflux disease) Essential hypertension Surgical History History of nephrolithiasis Family History Father Hypertension Mother Diabetes CVD (cardiovascular disease) Renal insufficiency Brother In good health Sister In good health Sister In good health Sister No problems noted. Son In good health Son In good health Son In good health Daughter In good health Social History Housing: Apartment Alcohol intake: never Patient Tobacco Use Status: Former Tobacco user Tobacco use type: Cigarette Cigarettes Per Day: 2 e-Cigarette/Vaping Use: Never Used Second Hand Smoke Exposure: No service: No Current occupational status: employed Current occupational exposures/hazards: No Cognitive needs: No Hearing needs: No Vision needs: Yes Review of Systems Const All systems reviewed & are unremarkable except as noted in HPI and below Physical Exam Vital Signs: Last Vital Signs Pulse 65 03/05/24 09:39 BP 138/88 03/05/24 09:39 Pulse Ox 99 03/05/24 09:39 Oxygen Delivery Method Room Air 03/05/24 09:39 BMI result Body Mass Index 35.2 General: awake, alert, oriented. Answers questions appropriately. Fully engaged in examination. Skin: warm, dry, intact HEENT: Normocephalic. Hearing intact. Cardiac: External chest normal in appearance. Respiratory: No cough, audible wheezing or stridor. Abdomen: without gross distension. MS: No obvious swelling or deformities. Able to stand on bilateral tiptoes and bilateral heels.? Able to transition from sit to stand unassisted. Ambulates with bilaterally normal heel strike and toe off Bilateral lower extremity strength 5/5 SLR negative bilaterally SY negative bilaterally Negative footdrop, negative clonus Facet loading positive bilaterally Nontender over PSIS bilaterally Tender to palpation midline lumbar vertebrae and lumbar paraspinal muscles Full lumbar flexion and extension, pain increase with extension Neurological: Oriented to person, place, time and situation. Thought process intact. No gait abnormalities appreciated. Psychiatric: Appropriate mood and affect. Good judgment and insight. Results Reviewed Results Reviewed: 01/29/24 FINDINGS: Lumbar Spine: Mild dextroscoliosis of the lumbar spine. Straightening of the normal lumbar lordosis. Facet arthritis in the lower lumbar spine. Multilevel lumbar spondylosis with loss of disc space height most notable at L5-S1. Mild grade 1 retrolisthesis of L2 on L3, L3 on L4, and L5 on S1. Right Shoulder: Acromioclavicular and glenohumeral alignment preserved. Mild osteoarthritic changes. Mild hypertrophic change with narrowing along the subacromial space. IMPRESSION: 1. Multilevel lumbar spondylosis most notable at L5-S1. 2. Mild osteoarthritic changes right shoulder. Assessment & Plan Assessment & Plan (1) Lumbar pain: Code(s): M54.50 - Low back pain, unspecified Category: Medical (2) Lumbar degenerative disc disease: Code(s): M51.36 - Other intervertebral disc degeneration, lumbar region Category: Medical Plan Phillip is a very pleasant 63-year-old male who presented to the office today for evaluation management of his chronic lower back pain History, physical exam and provocative testing consistent with lumbar spondylosis Order placed for PT eval and treat Celecoxib 50 mg p.o. b.i.d., patient advised on cautions for use. Take with food. Do not take with any other anti-inflammatory medications Lidocaine 5% patches, apply to most painful area on for 12 hours off for 12 hours Continue with Tylenol as needed All questions and concerns were answered, patient agrees with the plan Follow-up after PT, sooner if needed Orders: Orders PT Evaluation and Treatment Today M54.50 - Low back pain, unspecified Medications: New celecoxib 50 mg PO BID 60 caps 1RF lidocaine 5% leave on most painful area for up to 12 hrs 1 patch topical DAILY 30 ea 3RF Coding Level of Care Code New Pt Level 4 (14739) Diagnoses Lumbar pain M54.50 Lumbar degenerative disc disease M51.36
[2024-03-05 09:39] VITALS: BP 138/88; PULSE 65; O2SAT 99; BMI 35.2
== END 2024-03-05 09:53 | disposition home or self-care (01) ==
PROVIDERS: PCP Internal Medicine; Referring Provider Internal Medicine; Visit Provider Registered Nurse Emergency
DX: M54.50 Low back pain, unspecified (principal); M51.36 Other intervertebral disc degeneration, lumbar region
CPT/HCPCS: 99204

== ENCOUNTER → 2024-03-05 09:19 | Outpatient (BNVA) | payer OTHER, SELFPAY | PROVIDERS: PCP Internal Medicine; Referring Provider Internal Medicine; Visit Provider Registered Nurse Emergency | DX: M54.50 Low back pain, unspecified (principal); M51.36 Other intervertebral disc degeneration, lumbar region | CPT/HCPCS: 99202 ==

== ENCOUNTER 2024-03-25 11:35 | Outpatient (AMB) | payer OTHER, SELFPAY ==
--- NOTE | 2024-03-25 12:14 | A.OFFVIS_ITS ---
Vital Signs 03/25/24 12:21 Height 5 ft 6 in Weight 221 lb BMI 35.7 Handedness Right Intake Visit Reasons: N/p right shoulder pain Intake Note: Phillip is a 63 year old right hand domint male who presents today as a new patent for a evaluation of his right shoulder pain. Patient reports ongoing pain for about 3 - 4 months. He states that his pain is on the posterior aspect of the shoulder and it moves down to his elbow sometimes. He states that hears some crunch sounds when lifting his arm. Patient tired and failed taking Tylenol. Allergies lisinopril Allergy (Intermediate, Verified 03/25/24 12:20) dry cough HPI HPI N/p right shoulder pain : Details: 63-year-old right hand dominant male, who is Malagasy speaking, presents in the office today, as a new patient, for an evaluation of right shoulder pain. The patient was evaluated by his PCP on 02/18/2024 when x-rays of the right shoulder were ordered.?? While in the office today, the patient reports ongoing right shoulder pain for about 3-4 months, beginning around 10/2023 to 11/2023. He states his pain is on the posterior aspect of the right shoulder and radiates to his right elbow occasionally. He claims to hear a ?crunching? sound when lifting his right upper extremity. He reports the use of Tylenol with no relief. ? [facility] Medical History (Updated 03/25/24 @ 12:44 by Ida Gar) Ascending aorta dilatation Obesity (BMI 30-39.9) Cough Mild recurrent major depression Asthma Obese Daytime sleepiness MITCHELL (obstructive sleep apnea) Insomnia Anxiety Allergic rhinitis Knee osteoarthritis Mixed hyperlipidemia GERD (gastroesophageal reflux disease) Essential hypertension Surgical History History of nephrolithiasis Family History Father Hypertension Mother Diabetes CVD (cardiovascular disease) Renal insufficiency Brother In good health Sister In good health Sister In good health Sister No problems noted. Son In good health Son In good health Son In good health Daughter In good health Social History (Updated 03/25/24 @ 12:20 by Stephanie Peng) Housing: Apartment Alcohol intake: never Patient Tobacco Use Status: Former Tobacco user Tobacco use type: Cigarette Cigarettes Per Day: 2 e-Cigarette/Vaping Use: Never Used Second Hand Smoke Exposure: No service: No Current occupational status: employed Current occupational exposures/hazards: No Cognitive needs: No Hearing needs: No Vision needs: Yes Review of Systems Const All systems reviewed & are unremarkable except as noted in HPI and below Physical Exam Vital Signs: BMI result Body Mass Index 35.7 Const General: cooperative and no acute distress Orientation/consciousness: patient oriented x3 Resp Effort & Inspection: normal respiratory effort and able to speak in complete sentences Cardio Peripheral pulses: Peripheral pulses 2+ throughout Skin General skin exam: no rashes or lesions noted Neuro General: patient oriented x3 Extrem Other: Right shoulder: Normal to inspection. No ecchymosis, erythema, or edema. Full ROM in all planes with pain past 90 degrees in forward flexion and abduction. Pain with cross-body reach. 4/5 strength with empty can. Negative drop arm. NVI. ? Assessment & Plan Assessment & Plan (1) Osteoarthritis of right shoulder: Code(s): M19.011 - Primary osteoarthritis, right shoulder Category: Medical Plan Mr. Patrick Peng is a 63-year-old right hand dominant male, who is Malagasy speaking, presents in the office today, as a new patient, for an evaluation of right shoulder pain. The patient was evaluated by his PCP on 02/18/2024 when x- rays of the right shoulder were ordered.?? While in the office today, the patient reports ongoing right shoulder pain for about 3-4 months, beginning around 10/2023 to 11/2023. He states his pain is on the posterior aspect of the right shoulder and radiates to his right elbow occasionally. He claims to hear a ?crunching? sound when lifting his right upper extremity. He reports the use of Tylenol with no relief.? We discussed the role of cortisone injections in the office today, which the patient would like to move forward with. An order was placed for the patient to obtain a glenohumeral joint injection in the right shoulder at the hospital under ultrasound guidance. Follow-up will be PRN, or sooner if needed. ? X-rays of the right shoulder, obtained on 03/02/2024, revealed: Acromioclavicular and glenohumeral alignment preserved. Mild osteoarthritic changes. Mild hypertrophic change with narrowing along the subacromial space? Patient Instructions: Scribed by Ida Gar, medical payment poster, for Rosalind Cardenas PA-C on 03/25/2024 at 11:39 am, EST.? Coding Level of Care Code New Pt Level 4 (34294) Diagnoses Osteoarthritis of right shoulder M19.011
[2024-03-25 12:21] VITALS: BMI 35.7
== END 2024-03-25 12:30 | disposition home or self-care (01) ==
PROVIDERS: PCP Internal Medicine; Visit Provider Physician Assistant
DX: M19.011 Primary osteoarthritis, right shoulder (principal)
CPT/HCPCS: 99203

== ENCOUNTER → 2024-03-25 11:35 | Outpatient (BNVA) | payer OTHER, SELFPAY | PROVIDERS: PCP Internal Medicine; Visit Provider Physician Assistant | DX: M19.011 Primary osteoarthritis, right shoulder (principal) | CPT/HCPCS: 99202 ==

== ENCOUNTER 2024-04-20 13:01 | Outpatient (REF) | payer OTHER, SELFPAY ==
--- NOTE | ~2024-04-20 | FL_ITS ---
RIGHT SHOULDER FLUOROSCOPIC GUIDED INTRA-ARTICULAR STEROID INJECTION INDICATIONS: Right shoulder pain. Orthopedic surgery requests an intra-articular steroid injection PROCEDURE: Risks and benefits and possible complications were discussed with the patient and the consent form was signed. The patient was placed supine on the fluoroscopy table. The right shoulder was prepped and draped in normal sterile fashion. 1% buffered lidocaine was used for anesthesia. A 22-gauge spinal needle was used to access the shoulder joint. Intra-articular position of the needle within the shoulder joint was verified using 3 cc of Omnipaque 300. A total of 5 mL of 1% lidocaine and 80 mg Depo-Medrol was then injected into the shoulder joint. The needle was then removed and a Band-Aid was applied to the injection site. The patient tolerated the procedure well. There were no immediate complications. FL/FL arthrogram shoulder RT IMPRESSION: Successful fluoroscopic guided intra-articular steroid injection into the right shoulder joint. The procedure was performed by jazmyne Fontanez PA-C, and directly supervised by Dr. Cuellar.
== END 2024-04-20 13:02 | disposition home or self-care (01) ==
LOC: HO.XRAY 13:01
PROVIDERS: PCP Internal Medicine; Visit Provider Physician Assistant
DX: M19.011 Primary osteoarthritis, right shoulder (principal)
CPT/HCPCS: 23350; 73040

== ENCOUNTER → 2024-04-20 13:03 | Outpatient (BNV) | payer OTHER, SELFPAY | PROVIDERS: PCP Internal Medicine; Visit Provider Physician Assistant Surgical | DX: M19.011 Primary osteoarthritis, right shoulder (principal) | CPT/HCPCS: 20611 ==

== ENCOUNTER 2024-04-22 09:00 | Outpatient (RCR) | payer OTHER, SELFPAY ==
--- NOTE | 2024-03-24 14:22 | MHC.PT.EP ---
[facility] [place] Office [place] Office [place] Office [address] Gabbi Diamond [address] [phone] F: [phone] F: [phone] F: [phone] F: [phone] Physical Therapy Plan of Care Date of Evaluation: 03/23/24 Date of Surgery: n/a Diagnosis: Low back pain, unspecified Lumbar pain Assessment: Pt is a pleasant and motivated 63yo M who presents to PT with low back pain. Pt presents to PT with current impairments in pain, decreased lumbar ROM, decreased core stabilization, decreased hip/glute strength, posterior chain tightness, and impaired posture. He is limited functionally by bending, prolonged sitting, standing, mopping, and climbing ladders. He is an excellent candidate for skilled PT in order to address current impairments to facilitate return to PLOF. 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 Manual therapy to restore motion and function. Therapeutic exercise to improve strength and flexibility. Neuromuscular re-education for posture and balance. Therapeutic activities to return to functional activities of daily living. Electronically signed by: Mariajose Lyon, PT, DPT Please sign and return to therapist. Thank you for your referral.
--- NOTE | 2024-04-22 13:56 | MHC.PT.DC ---
[facility] [place] Office [place] Office [place] Office [address] Gabbi Diamond [address] [phone] F: [phone] F: [phone] F: [phone] F: [phone] Physical Therapy Discharge Report Diagnosis: Low back pain, unspecified Lumbar pain Date of Surgery: n/a Date of Evaluation: 03/23/24 Date of Discharge: 04/22/24 Treatments to Date: 9 Cancellations to Date: No Shows to Date: Discharge Status: Achieved Goals Improved Function Independent with HEP Discharge Summary: Pt has made good progress since SOC. He has had a decrease in pain and has demonstrated improvements in posture and body mechanics. He is independent with HEP and performs with proper form and pacing. He is being D/C from skilled PT at this time Electronically signed by: Mariajose Lyon, PT, DPT Please sign and return to therapist. Thank you for your referral.
== END 2024-04-22 13:56 | disposition home or self-care (01) ==
LOC: HO.PT 09:00
PROVIDERS: PCP Internal Medicine; Visit Provider Registered Nurse Emergency
DX: M54.50 Low back pain, unspecified (principal)
CPT/HCPCS: 97110; 97161

== ENCOUNTER 2024-06-09 08:06 | Outpatient (AMB) | payer OTHER, SELFPAY ==
--- NOTE | 2024-06-09 08:14 | A.OFFVIS_ITS ---
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: No Allergies lisinopril Allergy (Intermediate, Verified 06/09/24 08:17) dry cough Medication List - Last Reconciled 06/09/24 by Mirtha Beltran NP-C atorvastatin 20 mg PO BEDTIME 90 days celecoxib 50 mg PO BID cholecalciferol (vitamin D3) 25 mcg PO DAILY 90 days fenofibrate 160 mg PO DAILY 90 days lidocaine 5% 1 patch topical DAILY losartan 50 mg PO DAILY 90 days mirtazapine 30 mg PO BEDTIME 90 days miscellaneous medical supply (Blood Pressure Cuff) As directed pantoprazole 40 mg PO DAILY PRN HPI HPI 6 mth f/up: Details: Phillip is a 63-year-old male past medical history of obesity, hypertension, hyperlipidemia, dilated ascending aorta, vague chest discomfort with no significant abnormalities on cardiac testing who presents for follow up. Today he reports that his chest symptom is much better than it used to be. He only gets it a little bit at times. 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 He does not get his symptom when he is cleaning. He has no new symptoms to report. Has some mild shortness of breath when walking distances. No shortness of breath at rest, PND, orthopnea or edema. No presyncope, syncope, falls. Taking all meds as directed. He denies the need for a foundation assistant at this visit. [facility] Medical History Ascending aorta dilatation Obesity (BMI 30-39.9) Cough Mild recurrent major depression Asthma Obese Daytime sleepiness MITCHELL (obstructive sleep apnea) Insomnia Anxiety Allergic rhinitis Knee osteoarthritis Mixed hyperlipidemia GERD (gastroesophageal reflux disease) Essential hypertension Surgical History History of nephrolithiasis Family History Father Hypertension Mother Diabetes CVD (cardiovascular disease) Renal insufficiency Brother In good health Sister In good health Sister In good health Sister No problems noted. Son In good health Son In good health Son In good health Daughter In good health Social History Housing: Apartment Alcohol intake: never Patient Tobacco Use Status: Former Tobacco user Tobacco use type: Cigarette Cigarettes Per Day: 2 e-Cigarette/Vaping Use: Never Used Second Hand Smoke Exposure: No service: No Current occupational status: employed Current occupational exposures/hazards: No Cognitive needs: No Hearing needs: No Vision needs: Yes Review of Systems Const All systems reviewed & are unremarkable except as noted in HPI and below ENT Denies dizziness Card Reports chest pain (much less than it use to be), Denies chest pain at rest, Denies chest pain with activity, Denies rapid heart rate, Denies pedal edema, Denies edema, Denies leg edema, Denies lightheadedness, Denies palpitations, Denies dyspnea, Denies dyspnea on exertion and Denies orthopnea Resp Denies cough, Denies dyspnea and Denies dyspnea on exertion GI Denies hematochezia and Denies change in stool character Musc Denies abnormal gait, Reports limited range of motion, Reports muscle cramps, Denies muscle weakness, Denies numbness, Denies radiating pain into limb, Denies stiffness and Denies tingling Neuro Denies abnormal gait, Denies dizziness, Denies numbness and Denies tingling Endo Denies palpitations Physical Exam Vital Signs: BMI result Body Mass Index 37.1 Const Other: obese General: cooperative, healthy appearing, comfortable and no acute distress Orientation/consciousness: patient oriented x3 Neck Neck: Yes normal visual inspection and Yes no JVD Resp Effort & Inspection: normal respiratory effort Auscultation: clear to auscultation bilaterally, no rales, no rhonchi and no wheezes Cardio Jugular venous distension: no JVD Rate: regular rate Rhythm: regular rhythm Heart sounds: S1 normal heart sound present, S2 normal heart sound present, no murmurs and no rubs Skin General skin exam: no rashes or lesions noted Neuro General: patient oriented x3 Extrem General: Yes normal to inspection, No no pedal edema and No calf tenderness Psych Appearance: grossly normal Mental Status: mental status grossly normal Speech and movement: Normal speech and movement present Assessment & Plan Assessment & Plan (1) Precordial chest pain: Code(s): R07.2 - Precordial pain Category: Medical Plan: Previously reported of vague chest symptoms with walking. He does get shortness of breath with exertional activities. Cardiac risk factors of hypertension, hyperlipidemia and obesity. No known CAD. He did undergo a stress echocardiogram on 11/14/2023 with exercise 6-1/2 minutes with moderate shortness of breath, no chest discomfort, no EKG or echo evidence of ischemia. Echo done on 10/01/2023 showed EF 55-60%, no valve abnormalities and no regional wall motion abnormalities. EKG done on last visit 10/21/2023 showed sinus bradycardia, no acute ST or T-wave abnormalities, rate 58. Today he continues to report that his chest symptoms are improved and he will only notice it a little bit at times with activity. He says it feels more like his chest is agitated. 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 Since his symptom has improved in the last 6 months and his cardiac testing showed no significant abno rmalities it is less likely to be angina. Instructed him to call if his symptoms are changing or increasing. Emergency care if ever needed for symptoms. Continue with risk factor modification including good blood pressure and cholesterol control. Blood pressure today 102/70. Labs done 02/10/2024 shows LDL 53. Benefits a weight loss reviewed. Continue physical activity as tolerated. Cardiology office visit 1 year, sooner if needed. (2) Ascending aorta dilatation: Code(s): I77.810 - Thoracic aortic ectasia Category: Medical Plan: Last echocardiogram showing dilated ascending aorta 3.9 cm. We will continue to follow with periodic echoes. Blood pressure is controlled (3) Essential hypertension: Code(s): I10 - Essential (primary) hypertension Category: Medical Plan: Blood pressure normal range today. Labs done 02/10/2024 showed creatinine 0.86. Continue on losartan. (4) Sleep apnea: Code(s): G47.30 - Sleep apnea, unspecified Category: Medical Plan: Home sleep study done 11/01/2022 shows severe obstructive sleep apnea. He does have CPAP mask and reports compliance. He follows with pulmonology. Plan Time spent on chart review, documentation, interview and assessment Coding Level of Care Code Est Pt Level 3 (12308) Diagnoses Precordial chest pain R07.2 Ascending aorta dilatation I77.810 Essential hypertension I10 Sleep apnea G47.30 Time Spent (min) 24
[2024-06-09 08:15] VITALS: BP 102/70; PULSE 72; BMI 37.1
== END 2024-06-09 08:35 | disposition home or self-care (01) ==
PROVIDERS: Visit Provider Nurse Practitioner Family
DX: R07.2 Precordial pain (principal); I77.810 Thoracic aortic ectasia; I10 Essential (primary) hypertension; G47.30 Sleep apnea, unspecified
CPT/HCPCS: 99213

== ENCOUNTER → 2024-06-09 08:06 | Outpatient (BNVA) | payer OTHER, SELFPAY | PROVIDERS: Visit Provider Nurse Practitioner Family | DX: R07.2 Precordial pain (principal); I77.810 Thoracic aortic ectasia; I10 Essential (primary) hypertension; G47.30 Sleep apnea, unspecified | CPT/HCPCS: 99212 ==

== ENCOUNTER 2024-06-15 08:53 | Outpatient (AMB) | payer OTHER, SELFPAY ==
[2024-06-15 09:00] VITALS: BP 118/67; PULSE 72; O2SAT 98; BMI 37.2
--- NOTE | 2024-06-15 09:00 | MHC.OFFVIS ---
Vital Signs 06/15/24 09:00 Height 5 ft 6 in Weight 230 lb 6.129 oz BMI 37.2 BP 118/67 Blood Pressure Location Rt brachial Position Sitting Pulse 72 Pulse Source Doppler Pulse Oximetry (%) 98 Oxygen Delivery Method Room Air Intake Visit Reasons: Obstructive sleep apnea Intake Note: Patient is here to follow up on MITCHELL, patient stated theres no new symptoms, patient stated he is using his CPAP every night. Allergies lisinopril Allergy (Intermediate, Verified 06/15/24 09:13) dry cough Medication List - Last Reconciled 06/15/24 by Christine Connolly MD atorvastatin 20 mg PO BEDTIME 90 days celecoxib 50 mg PO BID cholecalciferol (vitamin D3) 25 mcg PO DAILY 90 days fenofibrate 160 mg PO DAILY 90 days lidocaine 5% 1 patch topical DAILY losartan 50 mg PO DAILY 90 days mirtazapine 30 mg PO BEDTIME 90 days miscellaneous medical supply (Blood Pressure Cuff) As directed pantoprazole 40 mg PO DAILY PRN HPI HPI Obstructive sleep apnea: Details: Phillip 63 years old gentleman grossly obese, with establish diagnosis of obstructive sleep apnea, and is being treated with CPAP therapy. He loves his CPAP and is a regular user every night. Sleeps very well. He admits that without the CPAP he would not be able to sleep well. He remains refreshed and active during the daytime. There is no issue with the use of CPAP machine or the mask. Weight remains unchanged, and I had a good talk with him about the need to lose some weight. [facility] Medical History Ascending aorta dilatation Obesity (BMI 30-39.9) Cough Mild recurrent major depression Asthma Obese Daytime sleepiness MITCHELL (obstructive sleep apnea) Insomnia Anxiety Allergic rhinitis Knee osteoarthritis Mixed hyperlipidemia GERD (gastroesophageal reflux disease) Essential hypertension Surgical History History of nephrolithiasis Family History Father Hypertension Mother Diabetes CVD (cardiovascular disease) Renal insufficiency Brother In good health Sister In good health Sister In good health Sister No problems noted. Son In good health Son In good health Son In good health Daughter In good health Social History Housing: Apartment Alcohol intake: never Patient Tobacco Use Status: Former Tobacco user Tobacco use type: Cigarette Cigarettes Per Day: 2 e-Cigarette/Vaping Use: Never Used Second Hand Smoke Exposure: No service: No Current occupational status: employed Current occupational exposures/hazards: No Cognitive needs: No Hearing needs: No Vision needs: Yes Review of Systems Const All systems reviewed & are unremarkable except as noted in HPI and below Eyes Reports no additional complaints ENT Reports nasal congestion (OFF AND ON) Card Denies irregular heart rhythm and Denies lightheadedness Resp Reports as per HPI GI Reports dyspepsia and Reports heartburn (BEING TREATED FOR GERD SYMPTOMS) Reports no additional complaints Musc Reports arthralgias (KNEES) Skin/Breast Reports system reviewed and no additional complaints, except as documented Neuro Reports no additional complaints Psych Reports no additional complaints Endo Reports no additional complaints Physical Exam Vital Signs: Last Vital Signs Pulse 72 06/15/24 09:00 BP 118/67 06/15/24 09:00 Pulse Ox 98 06/15/24 09:00 Oxygen Delivery Method Room Air 06/15/24 09:00 BMI result Body Mass Index 37.2 Const General: comfortable, no acute distress, alert and awake Orientation/consciousness: patient oriented x3 HEENT Other: HE HAS A ROUND FACE AND VERY SHORT AND OBESE NECK. Head: Yes normal to inspection General nose exam: No nasal polyps present and No nasal discharge present Face and sinus: Yes sinuses nontender Mouth: oropharynx abnormals (OROPHARYNX IS NARROW AND CROWDED, MALLAMPATI CLASS 4) Throat: Yes posterior oropharynx normal Eyes General: appearance normal, both eyes and all related structures Neck Neck: Yes normal visual inspection, Yes no lymphadenopathy, Yes trachea midline, Yes no JVD and Yes other (NECK CIRCUMFERENCE 18 IN) Thyroid: Thyroid normal Chest Chest palpation & inspection: normal inspection of the chest, normal palpation of entire chest wall and no tenderness Resp Other: PERCUSSION NOTE RESONANT, BREATH SOUNDS ARE EQUAL AND NORMAL ON BOTH SIDES, NO WHEEZES OR CREPITATIONS ARE HEARD Cardio Palpation: normal PMI Rate: regular rate Rhythm: regular rhythm Heart sounds: no gallops and no murmurs Peripheral pulses: Peripheral pulses 2+ throughout GI Inspection: Yes other (ABDOMEN IS OBESE AND SLIGHTLY PROTUBERANT) Palpation (GI): Soft to palpation, nontender, No hepatosplenomegaly present and no masses Auscultation: normal bowel sounds Back/Spine/Pelvis Thoracic/Lumbar Spine: thoracic and lumbar spine normal to inspection Skin General skin exam: no rashes or lesions noted Neuro General: patient oriented x3 and no focal motor deficits Cranial nerves: Yes CN's II-XII intact bilaterally Extrem General: Yes normal to inspection, Yes no clubbing, cyanosis or edema and Yes no calf tenderness Psych Speech and movement: Normal speech and movement present Results Reviewed Results Reviewed: Compliance report for the last 30 nights reviewed. He has used 30/30 nights, 100%. Average use it per night 7 hours 50 minute. Pressure. Used 18-19 cm .There is no air leak Residual AHI only 0.4 Assessment & Plan Assessment & Plan (1) Obesity (BMI 30-39.9): Comment: Obesity is his chronic problem. Remains stable and he has not been able to lose much weight. Code(s): E66.9 - Obesity, unspecified Category: Medical Plan: Again talked to him and encouraged him to lose some weight . (2) MITCHELL (obstructive sleep apnea): Comment: PATIENT HAS RATHER SEVERE DEGREE OF OBSTRUCTIVE SLEEP APNEA, WITH TOTAL SLEEP TIME AHI 40. HE HAS BEEN USING CPAP VERY REGULARLY AND SLEEPING WELL . HE IS REMAINING VERY COMPLIANT AND DEFINITELY BENEFITING. Code(s): G47.33 - Obstructive sleep apnea (adult) (pediatric) Category: Medical Plan: Commended for good compliance and advised to continue using CPAP every night. Coding Level of Care Code Est Pt Level 3 (48239) Diagnoses Obesity (BMI 30-39.9) E66.9 MITCHELL (obstructive sleep apnea) G47.33
== END 2024-06-15 09:14 | disposition home or self-care (01) ==
PROVIDERS: PCP Internal Medicine; Visit Provider Internal Medicine
DX: E66.9 Obesity, unspecified (principal); G47.33 Obstructive sleep apnea (adult) (pediatric)
CPT/HCPCS: 99213

== ENCOUNTER → 2024-06-15 08:53 | Outpatient (BNVA) | payer OTHER, SELFPAY | PROVIDERS: PCP Internal Medicine; Visit Provider Internal Medicine | DX: G47.33 Obstructive sleep apnea (adult) (pediatric) (principal); E66.01 Morbid (severe) obesity due to excess calories; Z68.37 Body mass index [BMI] 37.0-37.9, adult; Z99.89 Dependence on other enabling machines and devices | CPT/HCPCS: 99212 ==

== ENCOUNTER 2024-08-20 09:37 | Outpatient (AMB) | payer OTHER, SELFPAY ==
--- NOTE | 2024-08-20 09:39 | A.OFFPC_ITS ---
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 Accompanied by: Self / Same As Patient Allergies lisinopril Allergy (Intermediate, Verified 08/20/24 09:57) dry cough Medication List - Last Reconciled 08/20/24 by Leslye Mcgowan MD atorvastatin 20 mg PO BEDTIME 90 days celecoxib 50 mg PO BID cholecalciferol (vitamin D3) 25 mcg PO DAILY 90 days fenofibrate 160 mg PO DAILY 90 days lidocaine 5% 1 patch topical DAILY losartan 50 mg PO DAILY 90 days mirtazapine 30 mg PO BEDTIME 90 days miscellaneous medical supply (Blood Pressure Cuff) As directed pantoprazole 40 mg PO DAILY PRN Tobacco use date assessed: 02/18/24 Dental Screening Dental Screen Date: 08/20/24 Did you have a dental visit in the last 12 months?: Yes Did you have a dental problem in the last 6 months where you did not have access to dental care?: No Was dental information given to patient?: Patient has dentist HPI HPI Comments History of Present Illness Details The patient is a 64-year-old male presenting with a follow-up for Essential Hypertension. His hypertension has been well-controlled with Losartan 50 mg daily, and his blood pressure was recorded at 128/80 mmHg during the visit. He has a known allergy to Lisinopril, which previously caused a dry cough. In addition to hypertension, the patient is being managed for hypercholesterolemia with Atorvastatin 20 mg at night, and hypertriglyceridemia with Fenofibrate 160 mg. He supplements with Vitamin D 25 mg daily to address a deficiency. The patient's depression is controlled with Mirtazapine 30 mg at night. For gastroesophageal reflux disease, he uses Pantoprazole 40 mg as needed. He also has a history of knee osteoarthritis and right shoulder pain, both of which are managed with Celecoxib 50 mg twice daily as necessary. He reports occasional chest pain, attributed to anxiety, which subsides with rest; a stress test in October was negative for ischemia, and a previous echocardiogram showed a normal ejection fraction of 55-60% with no valve pathology. He received local injections in February for right shoulder pain. He has sleep apnea, requiring continuous use of a CPAP machine. The patient's last colonoscopy was over ten years ago in [place]. [facility] Medical History Ascending aorta dilatation Obesity (BMI 30-39.9) Cough Mild recurrent major depression Asthma Obese Daytime sleepiness MITCHELL (obstructive sleep apnea) Insomnia Anxiety Allergic rhinitis Knee osteoarthritis Mixed hyperlipidemia GERD (gastroesophageal reflux disease) Essential hypertension Surgical History History of nephrolithiasis Family History Father Hypertension Mother Diabetes CVD (cardiovascular disease) Renal insufficiency Brother In good health Sister In good health Sister In good health Sister No problems noted. Son In good health Son In good health Son In good health Daughter In good health Social History Housing: Apartment Alcohol intake: never Patient Tobacco Use Status: Former Tobacco user Tobacco use type: Cigarette Cigarettes Per Day: 2 e-Cigarette/Vaping Use: Never Used Second Hand Smoke Exposure: No service: No Current occupational status: employed Current occupational exposures/hazards: No Cognitive needs: No Hearing needs: No Vision needs: Yes Questionnaire Thrive Questionnaire Date Thrive assessed: 08/20/24 I am a: Patient What is your living situation today?: I have a steady place to live Within the past 12 months, did the food you bought not last and you didn't have the money to get more?: Never true Within the past 12 months, did you worry whether your food would run out before you got money to buy more?: Never true Do you have trouble paying for medicines?: No Do you have trouble getting transportation to medical appointments?: No Do you have trouble paying your heating and electricity bill?: No Do you have trouble taking care of your child, family member or friend?: No Do you have trouble with day-to-day activities such as bathing, preparing meals, shopping, managing finances, etc.?: No Are you currently unemployed and looking for a job?: No Are you interested in more education?: No Please select the resources that you would like help with: None Currently or been in a relationship where the following occur: No concerns reported THRIVE Score: 0 AUDIT C Alcohol Use Questionnaire (AUDIT-C) 1. How often do you have a drink containing alcohol?: Never Total Score: 0 SALIMA-7 AMB Questionnaire SALIMA-7 Date SALIMA - 7 assessed: 02/18/24 Source: Developed by Drs. Michael Barroso, Sonali Ortiz, Cain Low and colleagues, with an educational julian from [employer]. Review of Systems Const All systems reviewed & are unremarkable except as noted in HPI and below Card Denies chest pain at rest, Denies chest pain with activity, Denies edema, Denies irregular heart rhythm, Denies claudication, Denies dyspnea, Denies dyspnea on exertion, Denies orthopnea, Denies paroxysmal nocturnal dyspnea and Denies slow heart rate Resp Denies cough, Denies dyspnea and Denies dyspnea on exertion GI Denies abdominal pain, Denies change in bowel habits, Denies excessive flatus, Denies nausea and Denies vomiting Neuro Denies behavioral changes and Denies lack of coordination Psych Denies behavioral changes Physical exam (Primary Care) Vital Signs: Last Vital Signs BP 120/82 08/20/24 09:41 BMI result Body Mass Index 37.1 BMI Assessment/Plan discussion: High BMI High, discussed plan: lifestyle, weight reduction, dietary and physical activity Tobacco/Smoking Status: Tobacco use Status Tobacco use date assessed 02/18/24 08/20/24 09:43 Patient Tobacco Use Status Former Tobacco user 08/20/24 09:43 Tobacco use type Cigarette 08/20/24 09:43 e-Cigarette/Vaping Use Never Used 08/20/24 09:43 Thrive Assessment: Date of Thrive Assessment Date Thrive assessed 08/20/24 08/20/24 09:43 Currently or been in a relationship where the following occur: No concerns reported Resp Effort & Inspection: normal respiratory effort Auscultation: clear to auscultation bilaterally Cardio Jugular venous distension: no JVD Rate: regular rate Rhythm: regular rhythm Heart sounds: S1 normal heart sound present and S2 normal heart sound present Neuro General: no focal motor deficits Extrem General: Yes full ROM Coding Level of Care Code Est Pt Level 4 (01515) Complex EM visit Add On G2211 Diagnoses Essential hypertension I10 Mixed hyperlipidemia E78.2 Gastroesophageal reflux disease, unspecified whether esophagitis present K21.9 Esophagitis presence: esophagitis presence not specified Allergic rhinitis J30.9 Mild recurrent major depression F33.0 MITCHELL (obstructive sleep apnea) G47.33 Knee osteoarthritis M17.10 Time Spent (min) 24 Assessment & Plan Assessment & Plan (1) Essential hypertension: Code(s): I10 - Essential (primary) hypertension Category: Medical (2) Mixed hyperlipidemia: Code(s): E78.2 - Mixed hyperlipidemia Category: Medical (3) GERD (gastroesophageal reflux disease): Code(s): K21.9 - Gastro-esophageal reflux disease without esophagitis Category: Medical Qualifiers: Esophagitis presence: esophagitis presence not specified Qualified Code(s): K21.9 - Gastro-esophageal reflux disease without esophagitis (4) Allergic rhinitis: Comment: HE HAS SYMPTOMS OF ALLERGIC RHINITIS. Code(s): J30.9 - Allergic rhinitis, unspecified Category: Medical (5) Mild recurrent major depression: Code(s): F33.0 - Major depressive disorder, recurrent, mild Category: Medical (6) MITCHELL (obstructive sleep apnea): Comment: PATIENT HAS RATHER SEVERE DEGREE OF OBSTRUCTIVE SLEEP APNEA, WITH TOTAL SLEEP TIME AHI 40. HE HAS BEEN USING CPAP VERY REGULARLY AND SLEEPING WELL . HE IS REMAINING VERY COMPLIANT AND DEFINITELY BENEFITING. Code(s): G47.33 - Obstructive sleep apnea (adult) (pediatric) Category: Medical (7) Knee osteoarthritis: Code(s): M17.10 - Unilateral primary osteoarthritis, unspecified knee Category: Medical Plan - Essential Hypertension: Continue Losartan 50 mg daily. Blood pressure is well- controlled. - Allergic Rhinitis: Prescribe Cetirizine for symptomatic relief. - Hypercholesterolemia: Continue Atorvastatin 20 mg nightly. Cholesterol levels remain controlled. - Vitamin D Deficiency: Continue Vitamin D 25 mg daily. - Hypertriglyceridemia: Continue Fenofibrate 160 mg daily. - Depression: Continue Mirtazapine 30 mg nightly. - Gastroesophageal Reflux Disease: Use Pantoprazole 40 mg as needed for acidity. - Sleep Apnea: Continue CPAP therapy nightly. - Knee and Shoulder Pain: Use Celecoxib 50 mg twice daily as necessary. Noted improvement in shoulder mobility. - Colonoscopy: Due for repeat colonoscopy; over 10 years since the last procedure. Patient was informed and verbally consented to the use of an ambient scribe for clinic note documentation during this visit. I reiterated the importance of maintaining controlled blood pressure levels with the current medication regimen. We reviewed the successful management of his cholesterol and triglyceride levels, with the continuation of Atorvastatin and Fenofibrate as tobin components. For allergic rhinitis, I recommended starting Cetirizine for symptomatic relief when necessary. The patient's depression appears well-controlled with Mirtazapine, and he reports improved satisfaction with his sleep apnea treatment using CPAP, highlighting its benefits. The importance of scheduling a colonoscopy was discussed, considering the time since his last procedure. We also assessed his musculoskeletal issues, including knee and shoulder pain, with current management showing effectiveness. The use of lidocaine patches and Celecoxib for pain management was deemed appropriate. Orders: Orders Lipid Panel 6 Months E78.5 - Hyperlipidemia, unspecified Comprehensive [place]. Panel Fast 6 Months I10 - Essential (primary) hypertension Vitamin D 25-OH Total 6 Months E55.9 - Vitamin D deficiency, unspecified Referrals Open Access Screening Colonoscopy Referral Z12.12 - Encounter for screening for malignant neoplasm of rectum Medications: Changed From pantoprazole 40 mg PO DAILY PRN To pantoprazole 40 mg PO DAILY PRN 90 tabs 1RF heartburn 90 days Refilled cholecalciferol (vitamin D3) 25 mcg PO DAILY 90 caps 1RF 90 days atorvastatin 20 mg PO BEDTIME 90 tabs 1RF 90 days mirtazapine 30 mg PO BEDTIME 90 tabs 1RF 90 days losartan 50 mg PO DAILY 90 tabs 1RF 90 days fenofibrate 160 mg PO DAILY 90 tabs 1RF 90 days celecoxib 50 mg PO BID 60 caps 1RF Patient Instructions: - Continue Losartan 50 mg daily to manage hypertension. - Use Cetirizine as needed for allergic rhinitis symptoms. - Maintain current medication regimen for cholesterol, triglycerides, depression, and vitamin D deficiency. - Use CPAP machine nightly for sleep apnea. - Take Celecoxib 50 mg twice daily for knee or shoulder pain as needed. - Schedule a colonoscopy since it has been over ten years since the last one.
[2024-08-20 09:41] VITALS: BP 120/82; BMI 37.1
== END 2024-08-20 10:22 | disposition home or self-care (01) ==
PROVIDERS: PCP Internal Medicine; Visit Provider Internal Medicine
DX: I10 Essential (primary) hypertension (principal); F33.0 Major depressive disorder, recurrent, mild; E78.2 Mixed hyperlipidemia; K21.9 Gastro-esophageal reflux disease without esophagitis; J30.9 Allergic rhinitis, unspecified; G47.33 Obstructive sleep apnea (adult) (pediatric)

== ENCOUNTER → 2024-08-20 09:37 | Outpatient (BNVA) | payer OTHER, SELFPAY | PROVIDERS: PCP Internal Medicine; Visit Provider Internal Medicine | DX: I10 Essential (primary) hypertension (principal); E78.2 Mixed hyperlipidemia; K21.9 Gastro-esophageal reflux disease without esophagitis; J30.9 Allergic rhinitis, unspecified; F33.0 Major depressive disorder, recurrent, mild; G47.33 Obstructive sleep apnea (adult) (pediatric); M17.10 Unilateral primary osteoarthritis, unspecified knee | CPT/HCPCS: 99212 ==

== ENCOUNTER 2024-12-14 09:08 | Outpatient (AMB) | payer MEDICARE, MEDICAID, SELFPAY ==
--- NOTE | 2024-12-14 09:21 | A.OFFVIS_ITS ---
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 Allergies lisinopril Allergy (Intermediate, Verified 12/14/24 09:35) dry cough Medication List - Last Reconciled 12/14/24 by Christine Connolly MD atorvastatin 20 mg PO BEDTIME 90 days celecoxib 50 mg PO BID cholecalciferol (vitamin D3) 25 mcg PO DAILY 90 days fenofibrate 160 mg PO DAILY 90 days lidocaine 5% 1 patch topical DAILY losartan 50 mg PO DAILY 90 days mirtazapine 30 mg PO BEDTIME 90 days miscellaneous medical supply (Blood Pressure Cuff) As directed pantoprazole 40 mg PO DAILY PRN 90 days Do you need a note to return to daycare/school/sports/work: No HPI HPI Obstructive sleep apnea: Details: Phillip is here today for his 6 month follow-up for his sleep apnea He reports he has been feeling well and using his CPAP every night He reports sleeping well and has no daytime sleepiness, he has no issues with his fullface mask that he has been using or any issues with the CPAP machine Weight has not changed He reports having the flu about 2 weeks ago but did not need to go to the hospital and reports he has recovered well Patient has mild intermittent allergic rhinitis for which he uses Flonase with good effect for PFSH Medical History Ascending aorta dilatation Obesity (BMI 30-39.9) Cough Mild recurrent major depression Asthma Obese Daytime sleepiness MITCHELL (obstructive sleep apnea) Insomnia Anxiety Allergic rhinitis Knee osteoarthritis Mixed hyperlipidemia GERD (gastroesophageal reflux disease) Essential hypertension Surgical History History of nephrolithiasis Family History Father Hypertension Mother Diabetes CVD (cardiovascular disease) Renal insufficiency Brother In good health Sister In good health Sister In good health Sister No problems noted. Son In good health Son In good health Son In good health Daughter In good health Social History Housing: Apartment Alcohol intake: never Patient Tobacco Use Status: Former Tobacco user Tobacco use type: Cigarette Cigarettes Per Day: 2 e-Cigarette/Vaping Use: Never Used Second Hand Smoke Exposure: No service: No Current occupational status: employed Current occupational exposures/hazards: No Cognitive needs: No Hearing needs: No Vision needs: Yes Review of Systems Const All systems reviewed & are unremarkable except as noted in HPI and below Eyes Reports no additional complaints ENT Reports nasal congestion (OFF AND ON) Card Denies irregular heart rhythm and Denies lightheadedness Resp Reports as per HPI GI Reports dyspepsia and Reports heartburn (BEING TREATED FOR GERD SYMPTOMS) Reports no additional complaints Musc Reports arthralgias (KNEES) Skin/Breast Reports system reviewed and no additional complaints, except as documented Neuro Reports no additional complaints Psych Reports no additional complaints Endo Reports no additional complaints Physical Exam Vital Signs: Last Vital Signs Pulse 80 12/14/24 09:22 BP 140/90 H 12/14/24 09:22 Pulse Ox 97 12/14/24 09:22 Oxygen Delivery Method Room Air 12/14/24 09:22 BMI result Body Mass Index 37.2 Const General: comfortable, no acute distress, alert and awake Orientation/consciousness: patient oriented x3 HEENT Other: HE HAS A ROUND FACE AND VERY SHORT AND OBESE NECK. Head: Yes normal to inspection General nose exam: No nasal polyps present and No nasal discharge present Face and sinus: Yes sinuses nontender Mouth: oropharynx abnormals (OROPHARYNX IS NARROW AND CROWDED, MALLAMPATI CLASS 4) Throat: Yes posterior oropharynx normal Eyes General: appearance normal, both eyes and all related structures Neck Neck: Yes normal visual inspection, Yes no lymphadenopathy, Yes trachea midline, Yes no JVD and Yes other (NECK CIRCUMFERENCE 18 IN) Thyroid: Thyroid normal Chest Chest palpation & inspection: normal inspection of the chest, normal palpation of entire chest wall and no tenderness Resp Other: PERCUSSION NOTE RESONANT, BREATH SOUNDS ARE EQUAL AND NORMAL ON BOTH SIDES, NO WHEEZES OR CREPITATIONS ARE HEARD Cardio Palpation: normal PMI Rate: regular rate Rhythm: regular rhythm Heart sounds: no gallops and no murmurs Peripheral pulses: Peripheral pulses 2+ throughout GI Inspection: Yes other (ABDOMEN IS OBESE AND SLIGHTLY PROTUBERANT) Palpation (GI): Soft to palpation, nontender, No hepatosplenomegaly present and no masses Auscultation: normal bowel sounds Back/Spine/Pelvis Thoracic/Lumbar Spine: thoracic and lumbar spine normal to inspection Skin General skin exam: no rashes or lesions noted Neuro General: patient oriented x3 and no focal motor deficits Cranial nerves: Yes CN's II-XII intact bilaterally Extrem General: Yes normal to inspection, Yes no calf tenderness and Yes edema (Trace bilateral 1+ pitting edema around the ankles) Psych Speech and movement: Normal speech and movement present Results Reviewed Results Reviewed: CPAP compliance report for the last 30 days was reviewed Patient has used for 30/30 nights for an average of 8 hours and 32 minutes each night No significant air leak issues noted Residual AHI 0.9 Assessment & Plan Assessment & Plan (1) MITCHELL (obstructive sleep apnea): Comment: PATIENT HAS RATHER SEVERE DEGREE OF OBSTRUCTIVE SLEEP APNEA, WITH TOTAL SLEEP TIME AHI 40. HE HAS BEEN USING CPAP VERY REGULARLY AND SLEEPING WELL . HE IS REMAINING VERY COMPLIANT AND DEFINITELY BENEFITING. Code(s): G47.33 - Obstructive sleep apnea (adult) (pediatric) Category: Medical Plan: Patient commended for good compliance with CPAP usage and advised to continue us ing CPAP machineat night regularly (2) Obesity (BMI 30-39.9): Comment: Obesity is his chronic problem. Remains stable and he has not been able to lose much weight. Code(s): E66.9 - Obesity, unspecified Category: Medical Plan: We again talked about his weight and advised him to watch his diet and try to walk on a daily basis. Part of the weight is due to mild pitting edema and this would be helped by low- salt diet. (3) Allergic rhinitis: Comment: HE HAS SYMPTOMS OF ALLERGIC RHINITIS. Code(s): J30.9 - Allergic rhinitis, unspecified Category: Medical Plan: Patient to continue to use Flonase for his mild intermittent allergic rhinitis Coding Level of Care Code Est Pt Level 3 (73055) Diagnoses MITCHELL (obstructive sleep apnea) G47.33 Obesity (BMI 30-39.9) E66.9 Allergic rhinitis J30.9
[2024-12-14 09:22] VITALS: BP 140/90; PULSE 80; O2SAT 97; BMI 37.2
== END 2024-12-14 09:35 | disposition home or self-care (01) ==
LOC: HO.HPS 09:09
PROVIDERS: PCP Internal Medicine; Visit Provider Internal Medicine
DX: G47.33 Obstructive sleep apnea (adult) (pediatric) (principal); E66.9 Obesity, unspecified; J30.9 Allergic rhinitis, unspecified
CPT/HCPCS: 99213

== ENCOUNTER → 2024-12-14 09:08 | Outpatient (BNVA) | payer MEDICARE, MEDICAID, SELFPAY | PROVIDERS: PCP Internal Medicine; Visit Provider Internal Medicine | DX: G47.33 Obstructive sleep apnea (adult) (pediatric) (principal); E66.9 Obesity, unspecified; J30.9 Allergic rhinitis, unspecified; Z68.37 Body mass index [BMI] 37.0-37.9, adult; Z99.89 Dependence on other enabling machines and devices | CPT/HCPCS: 99212 ==

== ENCOUNTER 2025-02-18 10:13 | Outpatient (REF) | payer MEDICARE, MEDICAID, SELFPAY ==
[2025-02-18 11:46] LABS: Alanine Aminotransferase 64 U/L (0-40); Albumin Level 4.5 g/dL (3.5-5.0); Alkaline Phosphatase 68 U/L (39-117); Anion Gap 11 (12-20); Aspartate Amino Transferase 38 U/L (5-37); Bilirubin Total 0.6 mg/dL (0.0-1.0); Blood Urea Nitrogen 10 mg/dL (9-16); Calcium 9.5 mg/dL (8.4-10.2); Carbon Dioxide 23 mmol/L (22-29); Chloride 110 mmol/L (96-108); Cholesterol 140 mg/dL (<200); Estimated Glomerular Filt Rate > 60; Glucose Fasting 106 mg/dL (60-99); HDL Cholesterol 27 mg/dL (>40); LDL Cholesterol Calculated 82 mg/dL (<100); Potassium 3.9 mmol/L (3.3-5.1); Sodium 140 mmol/L (135-145); Total Protein 7.2 g/dL (6.5-8.0); Triglycerides 159 mg/dL (<150); Vitamin D 25-OH Total 28.1 ng/mL (>30)
== END 2025-02-18 10:14 | disposition home or self-care (01) ==
LOC: HO.LAB 10:13
PROVIDERS: PCP Internal Medicine; Visit Provider Internal Medicine
DX: I10 Essential (primary) hypertension (principal); E78.5 Hyperlipidemia, unspecified; E55.9 Vitamin D deficiency, unspecified
CPT/HCPCS: 36415; 80053; 80061; 82306

== ENCOUNTER 2025-02-25 09:37 | Outpatient (AMB) | payer MEDICARE, MEDICAID, SELFPAY ==
--- NOTE | 2025-02-25 09:46 | A.OFFPC_ITS ---
Vital Signs 02/25/25 09:48 Height 5 ft 6 in Weight 225 lb BMI 36.3 BP 120/84 Blood Pressure Location Lt brachial Position Sitting Intake Visit Reasons: annual exam Intake Note: Patient here for a physical exam Plaque Maker Required: No Accompanied by: Self / Same As Patient Allergies lisinopril Allergy (Intermediate, Verified 02/25/25 10:15) dry cough Medication List - Last Reconciled 02/25/25 by Leslye Mcgowan MD atorvastatin 20 mg PO BEDTIME 90 days celecoxib 50 mg PO BID cholecalciferol (vitamin D3) 25 mcg PO DAILY 90 days fenofibrate 160 mg PO DAILY 90 days lidocaine 5% 1 patch topical DAILY losartan 50 mg PO DAILY 90 days mirtazapine 30 mg PO BEDTIME 90 days miscellaneous medical supply (Blood Pressure Cuff) As directed pantoprazole 40 mg PO DAILY PRN 90 days Tobacco use date assessed: 02/25/25 Dental Screening Dental Screen Date: 02/25/25 Did you have a dental visit in the last 12 months?: Yes Did you have a dental problem in the last 6 months where you did not have access to dental care?: No Was dental information given to patient?: Patient has dentist HPI HPI Comments History of Present Illness Details The patient is a 64-year-old male presenting for an annual physical examination. He has a history of essential hypertension, currently managed with losartan and lisinopril. Hyperlipidemia is also noted, for which he is on atorvastatin 20 mg, but there is a concern about potential side effects contributing to slightly elevated liver enzymes. He experiences mild back pain, primarily managed with Celebrex. Depression and insomnia are present, and he is prescribed mirtazapine, although there is concern about daytime tiredness. He does not see a psychiatrist. Gastroesophageal reflux disease is managed with pantoprazole, and there is a noted vitamin D deficiency. The patient has a past surgical history of nephrolithiasis in 2012. He has not had a colonoscopy in over ten years. Family history includes hypertension in his father and diabetes with renal failure in his mother. His renal function is normal. - Reviewed vaccinations; tetanus booster in 2019 and pneumonia vaccine up to date. - Discussed colonoscopy screening; not p erformed in over ten years. - Vitamin D level noted at 28.1; near no rmal. - Blood pressure well-controlled under c urrent medication regimen. [facility] Medical History (Updated 02/25/25 @ 10:25 by Leslye Mcgowan MD) Ascending aorta dilatation Obesity (BMI 30-39.9) Cough Mild recurrent major depression Asthma Obese Daytime sleepiness MITCHELL (obstructive sleep apnea) Insomnia Anxiety Allergic rhinitis Knee osteoarthritis Mixed hyperlipidemia GERD (gastroesophageal reflux disease) Essential hypertension Surgical History History of nephrolithiasis Family History Father Hypertension Mother Diabetes CVD (cardiovascular disease) Renal insufficiency Brother In good health Sister In good health Sister In good health Sister No problems noted. Son In good health Son In good health Son In good health Daughter In good health Social History (Updated 02/25/25 @ 10:20 by Leslye Mcgowan MD) Housing: Apartment Alcohol intake: current Alcohol intake frequency: holidays/special occasions only Alcohol type: beer Patient Tobacco Use Status: Former Tobacco user Tobacco use type: Cigarette Cigarettes Per Day: 2 e-Cigarette/Vaping Use: Never Used Second Hand Smoke Exposure: No service: No Current occupational status: unemployed Cognitive needs: No Hearing needs: No Vision needs: Yes Questionnaire PHQ-9 Over the last 2 weeks, how often have you been bothered by any of the following problems? 1. Little interest or pleasure in doing things: several days 2. Feeling down, depressed, or hopeless: several days 3. Trouble falling or staying asleep, or sleeping too much: several days 4. Feeling tired or having little energy: several days 5. Poor appetite or overeating: not at all 6. Feeling bad about yourself - or that you are a failure or have let yourself or your family down: not at all 7. Trouble concentrating on things, such as reading the newspaper or watching television: not at all 8. Moving or speaking so slowly that other people could have noticed. Or the opposite - being so fidgety or restless that you have been moving around a lot more than usual: not at all 9. Thoughts that you would be better off or of hurting yourself in some way: not at all Total score: 4 Depression Screening Interpretation: Positive Depression Screening Follow-up: Existing condition, In treatment and Follow-up Visit Requested Depression Screening Done: Yes 52936 - PHQ-9 Billing: Yes Source: Developed by Drs. Michael Barroso, Sonali Ortiz, Cain reyes nd colleagues, with an educational julian from [employer]. Thrive Questionnaire Date Thrive assessed: 02/18/25 I am a: Patient What is your living situation today?: I have a steady place to live Within the past 12 months, did the food you bought not last and you didn't have the money to get more?: Often true Within the past 12 months, did you worry whether your food would run out before you got money to buy more?: Sometimes True Do you have trouble paying for medicines?: No Do you have trouble getting transportation to medical appointments?: No Do you have trouble paying your heating and electricity bill?: No Do you have trouble taking care of your child, family member or friend?: No Do you have trouble with day-to-day activities such as bathing, preparing meals, shopping, managing finances, etc.?: No Are you currently unemployed and looking for a job?: No Are you interested in more education?: Yes Please select the resources that you would like help with: Paying for medicine Currently or been in a relationship where the following occur: No concerns reported THRIVE Score: 2 AUDIT C Alcohol Use Questionnaire (AUDIT-C) 1. How often do you have a drink containing alcohol?: Monthly or less 2. How many drinks containing alcohol do you have on a typical day when you are drinking?: 1 or 2 3. How often do you have six or more drinks on one occasion?: Never Total Score: 1 SALIMA-7 AMB Questionnaire SALIMA-7 Date SALIMA - 7 assessed: 02/18/24 Feeling nervous, anxious, or on edge: 0 = Not at all Not being able to stop or control worryin = Not at all Worrying too much about different things: 1 = Several days Trouble relaxin = Several days Being so restless that it is hard to sit still: 0 = Not at all Becoming easily annoyed or irritable: 0 = Not at all Feeling afraid as if something awful might happen: 0 = Not at all Total SALIMA-7 score (0-4 normal; 5-9 mild; 10-14 moderate; 15-21 severe): 2 Source: Developed by Drs. Michael Barroso, Sonali Ortiz, Cain Low and colleagues, with an educational julian from [employer]. SALIMA-7 Assessment Billing SALIMA-7 Assessment Tool: SALIMA-7 Assessment 65991 Review of Systems Const All systems reviewed & are unremarkable except as noted in HPI and below Card Denies chest pain at rest, Denies chest pain with activity, Denies edema, Denies irregular heart rhythm, Denies claudication, Denies dyspnea, Denies dyspnea on exertion, Denies orthopnea, Denies paroxysmal nocturnal dyspnea and Denies slow heart rate Resp Denies cough, Denies dyspnea and Denies dyspnea on exertion GI Denies abdominal pain, Denies change in bowel habits, Denies excessive flatus, Denies nausea and Denies vomiting Denies urinary hesitancy, Denies urinary incontinence and Denies urinary urgency Musc Denies abnormal gait, Denies atrophy, Denies deformity and Denies limited range of motion Skin/Breast Denies bleeding lesions, Denies changing lesions and Denies rash Neuro Denies abnormal gait, Denies behavioral changes and Denies lack of coordination Psych Denies behavioral changes Physical exam (Primary Care) Vital Signs: Last Vital Signs BP 120/84 02/25/25 09:48 BMI result Body Mass Index 36.3 BMI Assessment/Plan discussion: High BMI High, discussed plan: lifestyle, weight reduction, dietary and physical activity Tobacco/Smoking Status: Tobacco use Status Tobacco use date assessed 02/25/25 02/25/25 09:53 Patient Tobacco Use Status Former Tobacco user 02/25/25 10:20 Tobacco use type Cigarette 02/25/25 10:20 e-Cigarette/Vaping Use Never Used 02/25/25 10:20 PHQ-9: PHQ-9 Score PHQ-9: Total score 4 02/25/25 10:20 Depression Screening Interpretation: Positive Depression Screening Follow-up: Existing condition, In treatment and Follow-up Visit Requested Thrive Assessment: Date of Thrive Assessment Date Thrive assessed 02/18/25 02/25/25 09:47 Currently or been in a relationship where the following occur: No concerns reported HENMT Head: Yes normal to inspection, Yes normocephalic and Yes atraumatic Ears: external ears normal Eyes General: appearance normal, both eyes and all related structures Eyelids: Yes eyelids normal Conjunctivae: conjunctivae normal Neck Neck: Yes normal visual inspection and Yes supple Resp Effort & Inspection: normal respiratory effort Auscultation: clear to auscultation bilaterally Cardio Jugular venous distension: no JVD Rate: regular rate Rhythm: regular rhythm Heart sounds: S1 normal heart sound present and S2 normal heart sound present GI Inspection: Yes normal to inspection Palpation (GI): Soft to palpation and nontender Auscultation: normal bowel sounds Skin General skin exam: no rashes or lesions noted Neuro General: no focal motor deficits Extrem General: Yes full ROM Psych Appearance: grossly normal Coding Level of Care Code Est Pt Prev Care 40-64y(05196) Diagnoses Physical exam Z00.00 Mild recurrent major depression F33.0 Additional Codes SALIMA-7 Assessment Billing - SALIMA-7 Assessment Tool: SALIMA-7 Assessment 66324 ([id number]) PHQ-9 - 60917 - PHQ-9 Billing: Yes ([id number]) Time Spent (min) 30 Assessment & Plan Assessment & Plan (1) Physical exam: Code(s): Z00.00 - Encounter for general adult medical examination without abnormal findings Category: Medical (2) Mild recurrent major depression: Code(s): F33.0 - Major depressive disorder, recurrent, mild Category: Medical Plan I have reviewed the patient's hypertension, which is well-managed with losartan and lisinopril. For hyperlipidemia, atorvastatin's dose may be reduced due to concerns about liver enzymes, as cholesterol levels are controlled. The patient's back pain is mild and managed with Celebrex. Mirtazapine for depression and insomnia remains effective for sleep, though it may cause daytime tiredness, requiring monitoring. Pantoprazole continues for gastroesophageal reflux disease. Despite a mild vitamin D deficiency, no immediate supplementation is planned. Due to the time since his last colonoscopy, I recommended scheduling a screening. Patient was informed and verbally consented to the use of an ambient scribe for clinic note documentation during this visit. I discussed with the patient his current medication regimen and its effectiveness in managing his conditions. We talked about the possibility of reducing atorvastatin dosage due to slightly elevated liver enzymes, although his cholesterol levels are well-controlled. I explained the importance of continuing current treatments for hypertension and GERD and addressed his concerns about mirtazapine's side effects. I recommended a colonoscopy due to the elapsed time since his last screening and discussed the benefits and necessity of this procedure. We also reviewed his vitamin D levels and considered no immediate changes. The patient was advised to monitor symptoms and report any changes. Orders: Orders Lipid Panel 6 Months E78.5 - Hyperlipidemia, unspecified Vitamin D 25-OH Total 6 Months E55.9 - Vitamin D deficiency, unspecified Comprehensive Plover. Panel Fast 6 Months I10 - Essential (primary) hypertension Referrals Gastroenterology Referral Z12.11 - Encounter for screening for malignant neoplasm of colon Medications: New atorvastatin 10 mg PO BEDTIME 90 tabs 1RF 90 days Discontinued atorvastatin Discontinued Reason: Patient Completed Course 20 mg PO BEDTIME 90 days 90 tabs 1RF Patient Instructions: - Continue current medication regimen as prescribed. - Take Celebrex as needed for back pain. - Monitor for any changes in symptoms and report concerns. - Schedule a colonoscopy for screening purposes. - Maintain follow-up appointments as planned. - Follow dietary and lifestyle recommendations for overall health.
[2025-02-25 09:48] VITALS: BP 120/84; BMI 36.3
== END 2025-02-25 10:26 | disposition home or self-care (01) ==
LOC: HO.HMCH 09:38
PROVIDERS: PCP Internal Medicine; Visit Provider Internal Medicine
DX: Z00.00 Encounter for general adult medical examination without abnormal findings (principal); F33.0 Major depressive disorder, recurrent, mild

== ENCOUNTER → 2025-02-25 09:37 | Outpatient (BNVA) | payer MEDICARE, MEDICAID, SELFPAY | PROVIDERS: PCP Internal Medicine; Visit Provider Internal Medicine | DX: Z00.00 Encounter for general adult medical examination without abnormal findings (principal); F33.0 Major depressive disorder, recurrent, mild; E78.5 Hyperlipidemia, unspecified; I10 Essential (primary) hypertension; E55.9 Vitamin D deficiency, unspecified | CPT/HCPCS: 96127; 99396 ==

== ENCOUNTER 2025-06-02 09:30 | Outpatient (AMB) | payer MEDICARE, MEDICAID, SELFPAY ==
--- NOTE | 2025-06-02 09:35 | A.OFFVIS_ITS ---
Vital Signs 06/02/25 09:36 Height 5 ft 6 in Weight 224 lb 13.944 oz BMI 36.3 BP 141/89 H Blood Pressure Location Lt brachial Position Sitting Pulse 81 Intake Visit Reasons: Colonoscopy screening Intake Note: Phillip presents in the office as a new patient for a colonoscopy screening. CC: States he takes pantoprazole and it seems to help his stomach issues. Detailer Furniture Required: No Detailer Furniture Services: Detailer Furniture Offered & Declined Allergies lisinopril Allergy (Intermediate, Verified 02/25/25 10:15) dry cough Medication List - Last Reconciled 06/02/25 by Riya Alfred CNP atorvastatin 10 mg PO BEDTIME 90 days celecoxib 50 mg PO BID cholecalciferol (vitamin D3) 25 mcg PO DAILY 90 days fenofibrate 160 mg PO DAILY 90 days lidocaine 5% 1 patch topical DAILY losartan 50 mg PO DAILY 90 days mirtazapine 30 mg PO BEDTIME 90 days miscellaneous medical supply (Blood Pressure Cuff) As directed pantoprazole 40 mg PO DAILY PRN 90 days HPI HPI Colonoscopy screening: Details: Patient is a 64-year-old male with PMH of obesity, MITCHELL on CPAP, insomnia, depression, anxiety, hyperlipidemia, hypertension and GERD. Referred by PCP for pre colonoscopy screening. Reports prior colonoscopy in [place] many years ago and unable to recall the results. He reports normal bowel movements occurring daily without difficulty or straining but notes intermittent blood on tissue paper after wiping over the past four months, not visualized in the toilet. Stool consistency primarily reflects Type 6 on the [place] Stool Chart, with occasional Type 3 and 4. Associated gastrointestinal symptoms include intermittent lower abdominal pain, typically relieved by defecation. Pain is controlled with pantoprazole, taken one to two times weekly as needed. Severity is described as mild to moderate. Current dietary intake includes rice, bread, meat, milk, sugar-free beverages, green vegetables, and minimal fiber. The patient denies heartburn, regurgitation, or dysphagia but uses [id number] nasal sprays for congestion The patient has a history of kidney stones and notes occasional back discomfort. Relevant comorbidities include hypertension controlled with losartan. Also reports episodic chest discomfort with excitement, lasting several minutes. Established with cardiology, upcoming appointment. Patient denies: fever/chills, n/v, appetite changes, pyrosis, regurgitation,dysphasia or unintentional wt loss. Social hx: -rare ETOH use, approx 1x/year -denies recreational drug use -former smoker, cessation one year ago - family hx as below -denies personal hx of CA -tolerated anesthesia in the past without difficulty. [facility] Medical History Ascending aorta dilatation Obesity (BMI 30-39.9) Cough Mild recurrent major depression Asthma Obese Daytime sleepiness MITCHELL (obstructive sleep apnea) Insomnia Anxiety Allergic rhinitis Knee osteoarthritis Mixed hyperlipidemia GERD (gastroesophageal reflux disease) Essential hypertension Surgical History History of nephrolithiasis Family History Father Hypertension Mother Diabetes CVD (cardiovascular disease) Renal insufficiency Brother In good health Sister In good health Sister In good health Sister No problems noted. Son In good health Son In good health Son In good health Daughter In good health Social History Housing: Apartment Alcohol intake: current Alcohol intake frequency: holidays/special occasions only Alcohol type: beer Patient Tobacco Use Status: Former Tobacco user Tobacco use type: Cigarette Cigarettes Per Day: 2 e-Cigarette/Vaping Use: Never Used Second Hand Smoke Exposure: No service: No Current occupational status: unemployed Cognitive needs: No Hearing needs: No Vision needs: Yes Review of Systems Const Reports as per HPI ENT Reports as per HPI Card Reports as per HPI Resp Reports as per HPI GI Reports as per HPI Reports as per HPI Physical Exam Vital Signs: Last Vital Signs Pulse 81 06/02/25 09:36 BP 141/89 H 06/02/25 09:36 BMI result Body Mass Index 36.3 Const General: healthy appearing, no acute distress and well developed Nutritional Appearance: average body habitus Orientation/consciousness: patient oriented x3 HEENT Head: Yes normal to inspection, Yes normocephalic and Yes atraumatic Face and sinus: Yes normal facial exam Eyes General: appearance normal, both eyes and all related structures Neck Neck: Yes normal visual inspection Resp Effort & Inspection: normal respiratory effort, able to speak in complete sentences, no tracheal deviation and symmetric chest movement Cardio Jugular venous distension: no JVD GI Inspection: Yes normal to inspection, No distended and Yes obesity Palpation (GI): Soft to palpation, not firm and nontender Auscultation: normoactive bowel sounds Neuro General: patient oriented x3 Gait exam (Neuro): Normal gait present Psych Appearance: grossly normal Mental Status: mental status grossly normal Speech and movement: Normal speech and movement present Affect: normal affect Attitude: cooperative Thought process: Normal thought process present Thought content: Normal thought content present Insight: Good insight present (Psych) Judgement: Good judgement present (Psych) Assessment & Plan Assessment & Plan (1) Screen for colon cancer: Code(s): Z12.11 - Encounter for screening for malignant neoplasm of colon Category: Medical Plan: Assess for potential colorectal disease, given intermittent rectal bleeding and age-related screening indications. Colorectal bleeding etiology- hemorrhoids VS colon pathology Medications: -prescriptions for laxative tablets and MiraLax sent to pharmacy; instructions for Gatorade purchase and clear liquid diet given. - understands to hold Celebrex 7 days prior to procedure. Patient educated on scheduling process, procedure preparation, including avoiding certain foods and ensuring clear liquid intake Advised on necessity for ride post-procedure due to sedation. Follow-Up: Review procedure findings post-colonoscopy and upper endoscopy. (2) Diarrhea: Code(s): R19.7 - Diarrhea, unspecified Category: Medical Qualifiers: Diarrhea type: unspecified type Qualified Code(s): R19.7 - Diarrhea, unspecified Plan: Mild. Likely irritable bowel syndrome (IBS) based on symptoms of abdominal pain improved by defecation, stool pattern variability, and absence of red flag features. Additional Testing: -Fasting labs including liver function tests, thyroid function tests, celiac disease panel, hepatitis serology and autoimmune markers. -Stool testing for inflammatory markers. Medication Management: Continue pantoprazole as needed if symptoms persist. Lifestyle Recommendations: Increase dietary fiber via diet or supplementation. Avoid high-fat and fried foods, minimize red meat, and maintain adequate hydration. Continue regular walking. Follow-Up: Return visit in 2 months. (3) Elevated LFTs: Code(s): R79.89 - Other specified abnormal findings of blood chemistry Category: Medical Plan: Prior labs showed elevated LFTs. Additional Testing: Repeat fasting LFTs, consider hepatic US if persistent elevation. Medication: No changes at this time. Lifestyle: Continue to avoid alcohol, maintain healthy diet. F/U: Review results at two month follow up Plan Follow-up in 2 months or sooner as needed Time: I spent a total of 45 minutes on the date of encounter which includes: Preparing to see the patient (reviewed previous documentation, test results and medical history) Performing a medically appropriate exam and/or evaluation Ordering medications, tests, and procedures Documenting clinical information in the health record Orders: Orders Liver Panel Today R7.89 - Other specified abnormal findings of blood chemistry Prothrombin Time INR Today R7.89 - Other specified abnormal findings of blood chemistry Smooth Muscle Antibody Today R7. - Other specified abnormal findings of blood chemistry Ferritin Today R79.89 - Other specified abnormal findings of blood chemistry MEGHA Reflex Titer and Pattern Today R7.89 - Other specified abnormal findings of blood chemistry Calprotectin, Fecal Today R19.7 - Diarrhea, unspecified TSH reflex Free T4 Today R19.7 - Diarrhea, unspecified Complete Blood Count Auto Diff Today R7.89 - Other specified abnormal findings of blood chemistry Lipase Today R7.89 - Other specified abnormal findings of blood chemistry Transglutaminase IgA Today R19.7 - Diarrhea, unspecified, R7. - Other specified abnormal findings of blood chemistry Hepatitis A,B,C Profile Today R7. - Other specified abnormal findings of blood chemistry Mitochondrial Antibody Today R79.89 - Other specified abnormal findings of blood chemistry C Reactive Protein Today R19.7 - Diarrhea, unspecified Medications: New bisacodyl Take per colonoscopy instructions 5 mg PO BID 4 tabs 0RF polyethylene glycol 3350 (Miralax) per colonoscopy prep instructions 238 grams PO ONCE 238 grams 0RF Coding Level of Care Code New Pt New Pt Level 4 (32118) Patient Type New Diagnoses Screen for colon cancer Z12.11 Diarrhea, unspecified type R19.7 Diarrhea type: unspecified type Elevated LFTs R79.89
[2025-06-02 09:36] VITALS: BP 141/89; PULSE 81; BMI 36.3
== END 2025-06-02 10:23 | disposition home or self-care (01) ==
LOC: HO.HGI 09:31
PROVIDERS: PCP Internal Medicine; Visit Provider Nurse Practitioner Family
DX: R19.7 Diarrhea, unspecified (principal); K62.5 Hemorrhage of anus and rectum; R74.01 Elevation of levels of liver transaminase levels; Z12.11 Encounter for screening for malignant neoplasm of colon
CPT/HCPCS: 99204

== ENCOUNTER → 2025-06-02 09:30 | Outpatient (BNVA) | payer MEDICARE, MEDICAID, SELFPAY | PROVIDERS: PCP Internal Medicine; Visit Provider Nurse Practitioner Family | DX: Z12.11 Encounter for screening for malignant neoplasm of colon (principal); R19.7 Diarrhea, unspecified; R79.89 Other specified abnormal findings of blood chemistry | CPT/HCPCS: 99202 ==

== ENCOUNTER 2025-06-10 07:36 | Outpatient (AMB) | payer OTHER, SELFPAY ==
[2025-06-10 08:13] VITALS: BP 122/72; PULSE 69; BMI 36.9
--- NOTE | 2025-06-10 08:13 | MHC.OFFVIS ---
Vital Signs 06/10/25 08:13 Height 5 ft 6 in Weight 228 lb 13.437 oz BMI 36.9 BP 122/72 Blood Pressure Location Lt brachial Position Sitting Pulse 69 Pulse Source Monitor Intake Visit Reasons: 1 year follow up Design Verification Engineer Services: Design Verification Engineer Offered & Declined Accompanied by: Self / Same As Patient Allergies lisinopril Allergy (Intermediate, Verified 06/10/25 08:18) dry cough Medication List - Last Reconciled 06/10/25 by CHRISTINE Swanson atorvastatin 10 mg PO BEDTIME 90 days bisacodyl 5 mg PO BID celecoxib 50 mg PO BID cholecalciferol (vitamin D3) 25 mcg PO DAILY 90 days fenofibrate 160 mg PO DAILY 90 days lidocaine 5% 1 patch topical DAILY losartan 50 mg PO DAILY 90 days mirtazapine 30 mg PO BEDTIME 90 days miscellaneous medical supply (Blood Pressure Cuff) As directed pantoprazole 40 mg PO DAILY PRN 90 days polyethylene glycol 3350 (Miralax) 238 grams PO ONCE HPI HPI 1 year follow up: Details: Phillip is a 64-year-old male past medical history of obesity, hypertension, hyperlipidemia, mildly dilated ascending aorta, atypical chest discomfort with no significant abnormalities on cardiac testing who presents for follow up. Last prior visit was 06/09/24. Today he reports that he will get quick sharp pains in his chest when he is upset or anxious. He rides his bike outside and does not get chest discomfort. He says he is retired but tries to stay active. He has no new symptoms to report. Has some mild shortness of breath when walking distances or bike riding. No shortness of breath at rest, PND, orthopnea or edema. No presyncope, syncope, falls. Taking all meds as directed. 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 [facility] Medical History Ascending aorta dilatation Diarrhea Elevated LFTs Obesity (BMI 30-39.9) Cough Mild recurrent major depression Asthma Obese Daytime sleepiness MITCHELL (obstructive sleep apnea) Insomnia Anxiety Allergic rhinitis Knee osteoarthritis Mixed hyperlipidemia GERD (gastroesophageal reflux disease) Essential hypertension Surgical History History of nephrolithiasis Family History Father Hypertension Mother Diabetes CVD (cardiovascular disease) Renal insufficiency Brother In good health Sister In good health Sister In good health Sister No problems noted. Son In good health Son In good health Son In good health Daughter In good health Social History Housing: Apartment Alcohol intake: current Alcohol intake frequency: holidays/special occasions only Alcohol type: beer Patient Tobacco Use Status: Former Tobacco user Tobacco use type: Cigarette Cigarettes Per Day: 2 e-Cigarette/Vaping Use: Never Used Second Hand Smoke Exposure: No service: No Current occupational status: unemployed Cognitive needs: No Hearing needs: No Vision needs: Yes Review of Systems Const All systems reviewed & are unremarkable except as noted in HPI and below Denies daytime sleepiness, Denies difficulty sleeping, Denies snoring, Denies stops breathing during sleep and Denies weakness Card Denies chest pain, Denies rapid heart rate, Denies irregular heart rhythm, Denies claudication, Denies leg edema, Denies lightheadedness, Reports palpitations, Reports dyspnea, Reports dyspnea on exertion, Denies orthopnea, Denies paroxysmal nocturnal dyspnea and Denies slow heart rate Resp Denies cough, Reports dyspnea, Reports dyspnea on exertion and Denies snoring GI Reports no additional complaints, Denies hematochezia, Denies change in stool character and Denies dyspepsia Musc Denies abnormal gait, Denies muscle weakness and Denies numbness Neuro Denies abnormal gait, Denies numbness and Denies weakness Endo Reports palpitations Physical Exam Vital Signs: Last Vital Signs Pulse 69 06/10/25 08:13 BP 122/72 06/10/25 08:13 BMI result Body Mass Index 36.9 Const Other: obese General: cooperative, healthy appearing, comfortable and no acute distress Orientation/consciousness: patient oriented x3 Neck Neck: Yes normal visual inspection and Yes no JVD Resp Effort & Inspection: normal respiratory effort Auscultation: clear to auscultation bilaterally, no rales, no rhonchi and no wheezes Cardio Jugular venous distension: no JVD Rate: regular rate Rhythm: regular rhythm Heart sounds: S1 normal heart sound present, S2 normal heart sound present, no murmurs and no rubs Skin General skin exam: no rashes or lesions noted Neuro General: patient oriented x3 Extrem General: Yes normal to inspection, No no pedal edema and No calf tenderness Psych Appearance: grossly normal Mental Status: mental status grossly normal Speech and movement: Normal speech and movement present Office Procedures EKG Details: Today, read by me, normal sinus rhythm, left axis deviation, rate 69, QTC 422 milliseconds [id number], Complete Assessment & Plan Assessment & Plan (1) Precordial chest pain: Code(s): R07.2 - Precordial pain Category: Medical Plan: Prior reports of chest discomfort with walking as well as shortness of breath with exertional activities without significant cardiac findings. Cardiac risk factors of hypertension, hyperlipidemia and obesity. Stress echocardiogram 11/14/2023 with exercise 6-1/2 minutes with moderate shortness of breath, no chest discomfort, no EKG or echo evidence of ischemia. Echo done on 10/01/2023 showed EF 55-60%, no valve abnormalities and no regional wall motion abnormalities. EKG today shows normal sinus rhythm, rate 69. Currently no anginal sounding symptoms. Continue with risk factor modification. Cardiology office visit 1 year, sooner if needed. (2) Ascending aorta dilatation: Code(s): I77.810 - Thoracic aortic ectasia Category: Medical Plan: Last echocardiogram showing dilated ascending aorta 3.9 cm. Blood pressure is well controlled. Will plan for repeat echocardiogram in 1 year. (3) Essential hypertension: Code(s): I10 - Essential (primary) hypertension Category: Medical Plan: Blood pressure goal less than 130/80. Normal at this time. Labs 02/19/2024 showed creatinine 0.81. Continue losartan. (4) Sleep apnea: Code(s): G47.30 - Sleep apnea, unspecified Category: Medical Plan: Home sleep study done 11/01/2022 shows severe obstructive sleep apnea. He does have CPAP mask and reports compliance. He follows with pulmonology. (5) Obesity (BMI 30-39.9): Comment: Obesity is his chronic problem. Remains stable and he has not been able to lose much weight. Code(s): E66.9 - Obesity, unspecified Category: Medical Plan: Benefit of weight loss and increasing his physical activity reviewed with him. Plan I discussed with the patient the importance of monitoring chest pain, especially during physical activity, and encouraged continued cycling to help manage anxiety and weight. We talked about maintaining a regular sleep schedule and making lifestyle changes to improve sleep quality. We agreed on a follow-up ultrasound before the next visit to monitor the aortic size. Orders: Orders CA echo transthoracic complete 11 Months E66.9 - Obesity, unspecified, I10 - Essential (primary) hypertension, I77.810 - Thoracic aortic ectasia Patient Instructions: - Monitor chest pain during physical activity and report any changes. - Continue cycling and stay active. - Maintain a regular sleep schedule and consider lifestyle changes to improve sleep quality. - Continue taking losartan daily for blood pressure control. Patient was informed and verbally consented to the use of an ambient scribe for clinic note documentation during this visit. Visit time spent on chart review, interview, assessment, orders, documentation. Coding Level of Care Code Est Pt Level 4 (59868) Complex EM visit Add On G2211 Diagnoses Precordial chest pain R07.2 Ascending aorta dilatation I77.810 Essential hypertension I10 Sleep apnea G47.30 Obesity (BMI 30-39.9) E66.9 CPT Codes EKG - CPT: 55354-[id number], Complete ([id number]) Time Spent (min) 28
== END 2025-06-10 08:38 | disposition home or self-care (01) ==
LOC: HO.HCS 07:37
PROVIDERS: PCP Internal Medicine; Visit Provider Nurse Practitioner Family
DX: R07.2 Precordial pain (principal); I77.810 Thoracic aortic ectasia; I10 Essential (primary) hypertension; G47.30 Sleep apnea, unspecified; E66.9 Obesity, unspecified
CPT/HCPCS: 93010; 99214

== ENCOUNTER → 2025-06-10 07:36 | Outpatient (BNVA) | payer MEDICARE, MEDICAID, SELFPAY | PROVIDERS: PCP Internal Medicine; Visit Provider Nurse Practitioner Family | DX: R07.2 Precordial pain (principal); I10 Essential (primary) hypertension; I77.810 Thoracic aortic ectasia; G47.30 Sleep apnea, unspecified; E66.9 Obesity, unspecified | CPT/HCPCS: 93005; 99212 ==

== ENCOUNTER 2025-06-16 14:24 | Outpatient (AMB) | payer MEDICARE, MEDICAID, SELFPAY ==
[2025-06-16 14:38] VITALS: BP 124/82; PULSE 62; O2SAT 97; BMI 37.2
--- NOTE | 2025-06-16 14:38 | A.OFFVIS_ITS ---
Vital Signs 06/16/25 14:38 Height 5 ft 6 in Weight 230 lb 6.129 oz BMI 37.2 BP 124/82 Blood Pressure Location Lt brachial Position Sitting Pulse 62 Pulse Source Pulse Oximeter Pulse Oximetry (%) 97 Oxygen Delivery Method Room Air Intake Visit Reasons: kay Intake Note: pt is here for follow up and doing well with cpap, Allergies lisinopril Allergy (Intermediate, Verified 06/16/25 14:57) dry cough Medication List - Last Reconciled 06/16/25 by Christine Connolly MD atorvastatin 10 mg PO BEDTIME 90 days bisacodyl 5 mg PO BID celecoxib 50 mg PO BID cholecalciferol (vitamin D3) 25 mcg PO DAILY 90 days fenofibrate 160 mg PO DAILY 90 days lidocaine 5% 1 patch topical DAILY losartan 50 mg PO DAILY 90 days mirtazapine 30 mg PO BEDTIME 90 days miscellaneous medical supply (Blood Pressure Cuff) As directed pantoprazole 40 mg PO DAILY PRN 90 days polyethylene glycol 3350 (Miralax) 238 grams PO ONCE Do you need a note to return to daycare/school/sports/work: No HPI HPI kay: Details: THIS 64 YEARS OLD GENTLEMAN WITH GROSS OBESITY ESPECIALLY WITH ROUND FACE AND VERY LARGE NECK, IS A CASE OF OBSTRUCTIVE SLEEP APNEA. HE IS HERE FOR. 6 MONTHS FOLLOW-UP USES HIS CPAP VERY REGULARLY EVERY NIGHT AND SLEEPS WELL. HE USES FULLFACE MASK WHICH IS COMFORTABLE. WAKES UP REFRESHED AND DENIES ANY DAYTIME SLEEPINESS. HE HAS NOT BEEN ABLE TO LOSE MUCH WEIGHT. [facility] Medical History Ascending aorta dilatation Diarrhea Elevated LFTs Obesity (BMI 30-39.9) Cough Mild recurrent major depression Asthma Obese Daytime sleepiness KAY (obstructive sleep apnea) Insomnia Anxiety Allergic rhinitis Knee osteoarthritis Mixed hyperlipidemia GERD (gastroesophageal reflux disease) Essential hypertension Surgical History History of nephrolithiasis Family History Father Hypertension Mother Diabetes CVD (cardiovascular disease) Renal insufficiency Brother In good health Sister In good health Sister In good health Sister No problems noted. Son In good health Son In good health Son In good health Daughter In good health Social History Housing: Apartment Alcohol intake: current Alcohol intake frequency: holidays/special occasions only Alcohol type: beer Patient Tobacco Use Status: Former Tobacco user Tobacco use type: Cigarette Cigarettes Per Day: 2 e-Cigarette/Vaping Use: Never Used Second Hand Smoke Exposure: No service: No Current occupational status: unemployed Cognitive needs: No Hearing needs: No Vision needs: Yes Review of Systems Const All systems reviewed & are unremarkable except as noted in HPI and below Eyes Reports no additional complaints ENT Reports nasal congestion (OFF AND ON) Card Denies irregular heart rhythm and Denies lightheadedness Resp Reports as per HPI GI Reports dyspepsia and Reports heartburn (BEING TREATED FOR GERD SYMPTOMS) Reports no additional complaints Musc Reports arthralgias (KNEES) Skin/Breast Reports system reviewed and no additional complaints, except as documented Neuro Reports no additional complaints Psych Reports no additional complaints Endo Reports no additional complaints Physical Exam Vital Signs: Last Vital Signs Pulse 62 06/16/25 14:38 BP 124/82 06/16/25 14:38 Pulse Ox 97 06/16/25 14:38 Oxygen Delivery Method Room Air 06/16/25 14:38 BMI result Body Mass Index 37.2 Const General: comfortable, no acute distress, alert and awake Orientation/consciousness: patient oriented x3 HEENT Other: HE HAS A ROUND FACE AND VERY SHORT AND OBESE NECK. Head: Yes normal to inspection General nose exam: No nasal polyps present and No nasal discharge present Face and sinus: Yes sinuses nontender Mouth: oropharynx abnormals (OROPHARYNX IS NARROW AND CROWDED, MALLAMPATI CLASS 4) Throat: Yes posterior oropharynx normal Eyes General: appearance normal, both eyes and all related structures Neck Neck: Yes normal visual inspection, Yes no lymphadenopathy, Yes trachea midline, Yes no JVD and Yes other (NECK CIRCUMFERENCE 18 IN) Thyroid: Thyroid normal Chest Chest palpation & inspection: normal inspection of the chest, normal palpation of entire chest wall and no tenderness Resp Other: PERCUSSION NOTE RESONANT, BREATH SOUNDS ARE EQUAL AND NORMAL ON BOTH SIDES, NO WHEEZES OR CREPITATIONS ARE HEARD Cardio Palpation: normal PMI Rate: regular rate Rhythm: regular rhythm Heart sounds: no gallops and no murmurs Peripheral pulses: Peripheral pulses 2+ throughout GI Inspection: Yes other (ABDOMEN IS OBESE AND SLIGHTLY PROTUBERANT) Palpation (GI): Soft to palpation, nontender, No hepatosplenomegaly present and no masses Auscultation: normal bowel sounds Back/Spine/Pelvis Thoracic/Lumbar Spine: thoracic and lumbar spine normal to inspection Skin General skin exam: no rashes or lesions noted Neuro General: patient oriented x3 and no focal motor deficits Cranial nerves: Yes CN's II-XII intact bilaterally Extrem General: Yes normal to inspection, Yes no calf tenderness and Yes edema (Trace bilateral 1+ pitting edema around the ankles) Psych Speech and movement: Normal speech and movement present Results Reviewed Results Reviewed: COMPLIANCE REPORT FOR THE LAST 30 NIGHTS IS REVIEWED AND HE HAS USED 30/30 NIGHTS, 100%. AVERAGE USE IT PER NIGHT 8 HOURS 55 MINUTES. PRESSURE USED MOSTLY 18-19 CM. NO SIGNIFICANT AIR. LEAK NOTED RESIDUAL AHI 0.4 Assessment & Plan Assessment & Plan (1) Obesity (BMI 30-39.9): Comment: Obesity is his chronic problem. Remains stable and he has not been able to lose much weight. Code(s): E66.9 - Obesity, unspecified Category: Medical Plan: AGAIN TALKED ABOUT OBESITY. HE SAID HE IS WATCHING HIS. DIET MUCH HE CAN HIS WEIGHT IS PARTLY DUE TO STASIS EDEMA OF THE LEGS. HE WILL TRY TO LIMIT HIS. CALORIES INTAKE (2) KAY (obstructive sleep apnea): Comment: PATIENT HAS RATHER SEVERE DEGREE OF OBSTRUCTIVE SLEEP APNEA, WITH TOTAL SLEEP TIME AHI 40. HE HAS BEEN USING CPAP( WITH FULLFACE MASK) VERY REGULARLY AND SLEEPING WELL . HE IS REMAINING VERY COMPLIANT AND DEFINITELY BENEFITING. Code(s): G47.33 - Obstructive sleep apnea (adult) (pediatric) Category: Medical Plan: COMMENDED FOR GOOD COMPLIANCE AND ADVISED TO CONTINUE USING THE CPAP REGULARLY EVERY NIGHT. (3) Asthma: Comment: HE HAS MILD INTERMITTENT COUGH WHICH IS PROBABLY DUE TO MILD ASTHMA. Code(s): J45.909 - Unspecified asthma, uncomplicated Category: Medical Qualifiers: Asthma severity: mild Asthma persistence: persistent Asthma complication type: uncomplicated Qualified Code(s): J45.30 - Mild persistent asthma, uncomplicated Plan: MAY USE ALBUTEROL HFA 2 PUFFS Q 6 HOURS P.R.N. FOR ANY SUSTAINED BOUTS OF COUGH OR WHEEZING Coding Level of Care Code Est Pt Level 3 (35240) Diagnoses Obesity (BMI 30-39.9) E66.9 KAY (obstructive sleep apnea) G47.33 Mild persistent asthma without complication J45.30 Asthma severity: mild Asthma persistence: persistent Asthma complication type: uncomplicated
== END 2025-06-16 14:57 | disposition home or self-care (01) ==
LOC: HO.HPS 14:25
PROVIDERS: PCP Internal Medicine; Visit Provider Internal Medicine
DX: E66.9 Obesity, unspecified (principal); G47.33 Obstructive sleep apnea (adult) (pediatric); J45.30 Mild persistent asthma, uncomplicated
CPT/HCPCS: 99213

== ENCOUNTER → 2025-06-16 14:24 | Outpatient (BNVA) | payer MEDICARE, MEDICAID, SELFPAY | PROVIDERS: PCP Internal Medicine; Visit Provider Internal Medicine | DX: G47.33 Obstructive sleep apnea (adult) (pediatric) (principal); Z99.89 Dependence on other enabling machines and devices; J45.30 Mild persistent asthma, uncomplicated; E66.9 Obesity, unspecified; Z68.37 Body mass index [BMI] 37.0-37.9, adult | CPT/HCPCS: 99212 ==

== ENCOUNTER 2025-07-02 09:05 | Outpatient (REF) | payer MEDICARE, MEDICAID, SELFPAY ==
[2025-07-02 09:41] LABS: INTERNATIONAL NORM RATIO 1.0 (0.9-1.1); Prothrombin Time 11.8 SEC (10.9-12.4)
[2025-07-02 09:50] LABS: Hematocrit 44.8 % (42.0-52.0); Hemoglobin 16.3 g/dl (14.0-18.0); Imm Gran Abs Auto 0.03 X10*3/uL (0.00-0.03); Imm Gran Pct Auto 0.6 % (0.0-0.4); Lymphocytes Absolute Auto 2.0 X10*3/uL (1.2-4.9); MANUAL DIFF FLAG SCAN; Mean Corpuscular HGB Conc 36.4 g/dl (31.0-36.0); Mean Corpuscular Hemoglobin 31.2 pg (27.0-33.0); Mean Corpuscular Volume 85.8 fL (80.0-98.0); NRBC Abs Auto 0.000 X10*3/uL (0.0-0.012); NRBC Pct Auto 0.0 /100WBC (0.0-0.2); PLT CLUMP 1; Red Blood Count 5.22 X10*6/uL (4.60-5.80); SCAN SMEAR FLAG 1; White Blood Count 5.3 X10*3/uL (4.8-10.8)
[2025-07-02 10:19] LABS: Platelet Count 154 X10*3/uL (160-400)
[2025-07-02 11:23] LABS: Alanine Aminotransferase 51 U/L (0-40); Albumin Level 4.6 g/dL (3.5-5.0); Alkaline Phosphatase 62 U/L (39-117); Aspartate Amino Transferase 45 U/L (5-37); Lipase 27 U/L (8-78); Total Protein 7.2 g/dL (6.5-8.0)
[2025-07-02 11:36] LABS: HBS Num1 0.00 mIU/mL (0-7.99); HBc Num1 0.13 S/CO (0.00-0.79); HBsAGNum1 0.33 S/CO (0.00-0.99); Hepatitis A Antibody IgM 0.19 Index (0-0.79); Hepatitis B Surface Antigen Negative (Negative); ~HepC Num1 0.08 S/CO (0.00-0.79); ~Hepatitis A Antibody IgM Nonreactive (Nonreactive); ~Hepatitis B Surface Antibody NONREACTIVE (Nonreactive); ~Hepatitis C Antibody Nonreactive (Nonreactive)
[2025-07-02 11:47] LABS: Ferritin 322 ng/mL (20-250)
[2025-07-06 21:53] LABS: Anti Nuclear Antibody Screen NEGATIVE (NEGATIVE)
[2025-07-09 19:38] LABS: Calprotectin, Fecal 29 mcg/g
== END 2025-07-02 09:06 | disposition home or self-care (01) ==
LOC: HO.LAB 09:05
PROVIDERS: PCP Internal Medicine; Visit Provider Nurse Practitioner Family
DX: R79.89 Other specified abnormal findings of blood chemistry (principal); R19.7 Diarrhea, unspecified
CPT/HCPCS: 36415; 80076; 82728; 83690; 83993; 84443; 85025; 85610; 86015; 86038; 86140; 86364; 86381; 86704; 86706; 86709; 86803; 87340

== ENCOUNTER 2025-08-05 09:28 | Outpatient (REF) | payer MEDICARE, MEDICAID, SELFPAY ==
[2025-08-05 10:32] LABS: Alanine Aminotransferase 57 U/L (0-40); Albumin Level 4.5 g/dL (3.5-5.0); Alkaline Phosphatase 68 U/L (39-117); Anion Gap 12 (12-20); Aspartate Amino Transferase 62 U/L (5-37); Blood Urea Nitrogen 9 mg/dL (9-16); Calcium 9.6 mg/dL (8.4-10.2); Carbon Dioxide 26 mmol/L (22-29); Chloride 108 mmol/L (96-108); Cholesterol 170 mg/dL (<200); Estimated Glomerular Filt Rate > 60; HDL Cholesterol 34 mg/dL (>40); Potassium 4.3 mmol/L (3.3-5.1); Sodium 142 mmol/L (135-145); Total Protein 7.9 g/dL (6.5-8.0); Triglycerides 195 mg/dL (<150)
== END 2025-08-05 09:29 | disposition home or self-care (01) ==
LOC: HO.LAB 09:28
PROVIDERS: PCP Internal Medicine; Visit Provider Internal Medicine
DX: I10 Essential (primary) hypertension (principal); E55.9 Vitamin D deficiency, unspecified; E78.5 Hyperlipidemia, unspecified
CPT/HCPCS: 36415; 80053; 80061; 82306

== ENCOUNTER 2025-08-12 09:16 | Outpatient (AMB) | payer MEDICARE, MEDICAID, SELFPAY ==
[2025-08-12 09:20] VITALS: BP 122/74; PULSE 75; RESP 18; O2SAT 97; BMI 37.0
--- NOTE | 2025-08-12 09:20 | MHC.PC.OV ---
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: No Accompanied by: Self / Same As Patient Allergies lisinopril Allergy (Intermediate, Verified 08/12/25 09:42) dry cough Medication List - Last Reconciled 08/12/25 by Leslye Mcgowan MD atorvastatin 10 mg PO BEDTIME 90 days bisacodyl 5 mg PO BID celecoxib 50 mg PO BID cholecalciferol (vitamin D3) 25 mcg PO DAILY 90 days fenofibrate 160 mg PO DAILY 90 days lidocaine 5% 1 patch topical DAILY losartan 50 mg PO DAILY 90 days mirtazapine 30 mg PO BEDTIME 90 days miscellaneous medical supply (Blood Pressure Cuff) As directed pantoprazole 40 mg PO DAILY PRN 90 days polyethylene glycol 3350 (Miralax) 238 grams PO ONCE Tobacco use date assessed: 08/12/25 Fall risk assessment: No Falls in past year Last assessed Fall Risk: 08/12/25 Dental Screening Dental Screen Date: 08/12/25 Did you have a dental visit in the last 12 months?: Yes Did you have a dental problem in the last 6 months where you did not have access to dental care?: No Was dental information given to patient?: Patient has dentist HPI HPI Comments History of Present Illness Details The patient is a 65-year-old male presenting with back pain. The back pain began approximately two weeks ago and is exacerbated by cold weather. He reports the pain sometimes radiates to his right leg. No fever, bowel or bladder incontinence. He has hypertension and is compliant with medications and blood pressure is within goal. Also has mixed hyperlipidemia that has been stable with medications. Fenofibrate will be discontinued. Has atrial fibrillation and hypothyroidism. The patient reports having completed his influenza vaccination for the year. Recent laboratory results showed mildly elevated liver enzymes, normal vitamin D levels, and controlled cholesterol. His current medications include Losartan 50 mg for hypertension, which is reportedly well-controlled, and Mirtazapine 30 mg for sleep and depression. [facility] Medical History (Updated 08/12/25 @ 10:21 by Leslye Mcgowan MD) Ascending aorta dilatation Diarrhea Elevated LFTs Obesity (BMI 30-39.9) Cough Mild recurrent major depression Asthma Obese Daytime sleepiness MITCHELL (obstructive sleep apnea) Insomnia Anxiety Allergic rhinitis Knee osteoarthritis Mixed hyperlipidemia GERD (gastroesophageal reflux disease) Essential hypertension Surgical History History of nephrolithiasis Family History Father Hypertension Mother Diabetes CVD (cardiovascular disease) Renal insufficiency Brother In good health Sister In good health Sister In good health Sister No problems noted. Son In good health Son In good health Son In good health Daughter In good health Social History Housing: Apartment Alcohol intake: current Alcohol intake frequency: holidays/special occasions only Alcohol type: beer Patient Tobacco Use Status: Former Tobacco user Tobacco use type: Cigarette Cigarettes Per Day: 2 e-Cigarette/Vaping Use: Never Used Second Hand Smoke Exposure: No service: No Current occupational status: unemployed Cognitive needs: No Hearing needs: No Vision needs: Yes Questionnaire Thrive Questionnaire Date Thrive assessed: 02/18/25 I am a: Patient What is your living situation today?: I have a steady place to live Within the past 12 months, did the food you bought not last and you didn't have the money to get more?: Often true Within the past 12 months, did you worry whether your food would run out before you got money to buy more?: Sometimes True Do you have trouble paying for medicines?: No Do you have trouble getting transportation to medical appointments?: No Do you have trouble paying your heating and electricity bill?: No Do you have trouble taking care of your child, family member or friend?: No Do you have trouble with day-to-day activities such as bathing, preparing meals, shopping, managing finances, etc.?: No Are you currently unemployed and looking for a job?: No Are you interested in more education?: Yes Please select the resources that you would like help with: Paying for medicine Currently or been in a relationship where the following occur: No concerns reported THRIVE Score: 2 SALIMA-7 AMB Questionnaire SALIMA-7 Date SALIMA - 7 assessed: 08/12/25 Source: Developed by Drs. Michael Barroso, Sonali Ortiz, Cain Low and colleagues, with an educational julian from [employer]. Review of Systems Const All systems reviewed & are unremarkable except as noted in HPI and below Card Denies chest pain at rest, Denies chest pain with activity, Denies edema, Denies irregular heart rhythm, Denies claudication, Denies dyspnea, Denies dyspnea on exertion, Denies orthopnea, Denies paroxysmal nocturnal dyspnea and Denies slow heart rate Resp Denies cough, Denies dyspnea and Denies dyspnea on exertion GI Denies abdominal pain, Denies change in bowel habits, Denies excessive flatus, Denies nausea and Denies vomiting Physical exam (Primary Care) Vital Signs: Last Vital Signs Pulse 75 08/12/25 09:20 Resp 18 08/12/25 09:20 BP 122/74 08/12/25 09:20 Pulse Ox 97 08/12/25 09:20 Oxygen Delivery Method Room Air 08/12/25 09:20 BMI result Body Mass Index 37.0 BMI Assessment/Plan discussion: High BMI High, discussed plan: lifestyle, weight reduction, dietary and physical activity Tobacco/Smoking Status: Tobacco use Status Tobacco use date assessed 08/12/25 08/12/25 09:21 Patient Tobacco Use Status Former Tobacco user 08/12/25 09:21 Tobacco use type Cigarette 08/12/25 09:21 e-Cigarette/Vaping Use Never Used 08/12/25 09:21 Thrive Assessment: Date of Thrive Assessment Date Thrive assessed 02/18/25 08/12/25 09:21 Currently or been in a relationship where the following occur: No concerns reported Resp Effort & Inspection: normal respiratory effort Auscultation: clear to auscultation bilaterally Cardio Jugular venous distension: no JVD Rate: regular rate Rhythm: regular rhythm Heart sounds: S1 normal heart sound present and S2 normal heart sound present Extrem General: Yes full ROM Coding Level of Care Code Est Pt Level 4 (00981) Complex EM visit Add On G2211 Diagnoses Mild recurrent major depression F33.0 Mixed hyperlipidemia E78.2 Atrial fibrillation I48.91 Essential hypertension I10 Hypothyroidism E03.9 Lumbar degenerative disc disease M51.36 Time Spent (min) 21 Assessment & Plan Assessment & Plan (1) Mild recurrent major depression: Code(s): F33.0 - Major depressive disorder, recurrent, mild Category: Medical (2) Mixed hyperlipidemia: Code(s): E78.2 - Mixed hyperlipidemia Category: Medical (3) Atrial fibrillation: Code(s): I48.91 - Unspecified atrial fibrillation Category: Medical (4) Essential hypertension: Code(s): I10 - Essential (primary) hypertension Category: Medical (5) Hypothyroidism: Code(s): E03.9 - Hypothyroidism, unspecified Category: Medical (6) Lumbar degenerative disc disease: Code(s): M51.36 - Other intervertebral disc degeneration, lumbar region Category: Medical Plan Plan 1. Low Back Pain Prescriptions for Celebrex and naproxen will be sent to the pharmacy. The patient is instructed to take naproxen twice a day as needed for back pain. He was advised to discontinue naproxen before his upcoming colonoscopy due to the risk of bleeding. Lidocaine patches will also be prescribed. 2. Elevated Liver Enzymes The mildly elevated liver enzymes may be due to fatty liver or medications. Plan to repeat labs in six months for monitoring. 3. Hyperlipidemia Fenofibrate will be discontinued as the patient's triglycerides have not been significantly elevated. 4. Hypertension Blood pressure is well-controlled. The patient will continue taking Losartan 50 mg. 5. Insomnia/depression The patient will continue taking Mirtazapine 30 mg for sleep. Orders: Orders Thyroid Stimulating Hormone Today E03.9 - Hypothyroidism, unspecified Free T4 (Free Thyroxine) Today E03.9 - Hypothyroidism, unspecified Comprehensive Met. Panel Today R79.89 - Other specified abnormal findings of blood chemistry IRON PROFILE Today D64.9 - Anemia, unspecified Vitamin B12 and Folate Today E53.8 - Deficiency of other specified B group vitamins Vitamin B1 Today E51.9 - Thiamine deficiency, unspecified ECG 12 lead EKG Today I48.91 - Unspecified atrial fibrillation Complete Blood Count Auto Diff Today D64.9 - Anemia, unspecified Referrals Cardiology Referral I48.91 - Unspecified atrial fibrillation Medications: New venlafaxine ER 37.5 mg PO BEDTIME 30 caps 0RF 30 days naproxen 500 mg PO BID PRN 60 tabs 1RF pain 30 days levofloxacin 500 mg PO DAILY 5 tabs 0RF 5 days Refilled lidocaine 5% leave on most painful area for up to 12 hrs 1 patch topical DAILY 30 ea 3RF Discontinued celecoxib Discontinued Reason: Patient Completed Course 50 mg PO BID 60 caps 1RF fenofibrate Discontinued Reason: Patient Completed Course 160 mg PO DAILY 90 days 90 tabs 1RF
== END 2025-08-12 09:57 | disposition home or self-care (01) ==
LOC: HO.HMCH 09:17
PROVIDERS: PCP Internal Medicine; Visit Provider Internal Medicine
DX: F33.0 Major depressive disorder, recurrent, mild (principal); E78.2 Mixed hyperlipidemia; I48.91 Unspecified atrial fibrillation; I10 Essential (primary) hypertension; E03.9 Hypothyroidism, unspecified; M51.369 Other intervertebral disc degeneration, lumbar region without mention of lumbar back pain or lower extremity pain

== ENCOUNTER → 2025-08-12 09:16 | Outpatient (BNVA) | payer MEDICARE, MEDICAID, SELFPAY | PROVIDERS: PCP Internal Medicine; Visit Provider Internal Medicine | DX: F33.0 Major depressive disorder, recurrent, mild (principal); E78.2 Mixed hyperlipidemia; I48.91 Unspecified atrial fibrillation; I10 Essential (primary) hypertension; E03.9 Hypothyroidism, unspecified; M51.369 Other intervertebral disc degeneration, lumbar region without mention of lumbar back pain or lower extremity pain | CPT/HCPCS: 99212 ==

== ENCOUNTER 2025-08-20 13:11 | Day surgery (SDC) | payer MEDICARE, MEDICAID, SELFPAY ==
--- NOTE | 2025-08-17 12:09 | HO.ANESPROP2 ---
Documented by User: Mariza Tai NP 08/17/25 12:19 HPI - Anesthesia Eval Consult details Narrative: 65yo M for Upper Endoscopy and Colonoscopy Cardiac optimized per 05/2025 office visit. Follows [facility] [place] Cardiology: Atypical CP, able to ride bike, mild AAA. 2023 Ischemic testing negative AAA @ 3.9cm on 2023 ECHO [facility] Active Problems Active Problems: All Active Problems Atrial fibrillation (Acute) Thiamine deficiency (Acute) Hypothyroidism (Acute) Ascending aorta dilatation (Acute) Diarrhea (Acute) Elevated LFTs (Acute) Screen for colon cancer (Acute) Osteoarthritis of right shoulder (Acute) Physical exam (Acute) Lumbar pain (Acute) Right shoulder pain (Acute) Sleep apnea (Acute) Precordial chest pain (Acute) Lumbar degenerative disc disease (Acute) Obesity (BMI 30-39.9) (Acute) Leg edema (Acute) Cough (Acute) Mild recurrent major depression (Acute) Asthma (Acute) Obese (Acute) Daytime sleepiness (Acute) MITCHELL (obstructive sleep apnea) (Acute) Insomnia (Acute) Anxiety (Acute) Allergic rhinitis (Acute) Knee osteoarthritis (Acute) Mixed hyperlipidemia (Acute) GERD (gastroesophageal reflux disease) (Acute) Essential hypertension (Acute) Past Medical History Medical History Ascending aorta dilatation Diarrhea Elevated LFTs Obesity (BMI 30-39.9) Cough Mild recurrent major depression Asthma Obese Daytime sleepiness MITCHELL (obstructive sleep apnea) Insomnia Anxiety Allergic rhinitis Knee osteoarthritis Mixed hyperlipidemia GERD (gastroesophageal reflux disease) Essential hypertension Family History Family History Father Hypertension Mother Diabetes CVD (cardiovascular disease) Renal insufficiency Brother In good health Sister In good health Sister In good health Sister No problems noted. Son In good health Son In good health Son In good health Daughter In good health Surgical History Surgical History History of nephrolithiasis Social History Social History Housing: Apartment Alcohol intake: current Alcohol intake frequency: holidays/special occasions only Alcohol type: beer Patient Tobacco Use Status: Former Tobacco user Tobacco use type: Cigarette Cigarettes Per Day: 2 e-Cigarette/Vaping Use: Never Used Second Hand Smoke Exposure: No Use of substances other than those prescribed or required for medical reasons: No Advance Directives: No Advance Directives Information Provided: Yes service: No Current occupational status: unemployed Cognitive needs: No Hearing needs: No Vision needs: Yes Meds Allergies Allergy/AdvReac Type Severity Reaction Status Date / Time lisinopril Allergy Intermediate dry cough Verified 08/12/25 09:42 Exam Narrative Narrative: EKG 05/2025 normal sinus rhythm, left axis deviation, rate 69, QTC 422 milliseconds ECHO 2023 Conclusions: - The left ventricular systolic function is normal. The visually estimated ejection fraction is between 55-60%. - No obvious valvular pathology seen on this study. Stress ECHO 2023 Conclusion : Stress echocardiogram is negative for myocardial ischemia. Assessment and Plan Assessment Anesthesia Assessment: Chart Reviewed Documented by User: Giuliana Crum MD 08/20/25 15:50 PMFSH Past Medical History Medical History Ascending aorta dilatation Diarrhea Elevated LFTs Obesity (BMI 30-39.9) Cough Mild recurrent major depression Asthma Obese Daytime sleepiness MITCHELL (obstructive sleep apnea) Insomnia Anxiety Allergic rhinitis Knee osteoarthritis Mixed hyperlipidemia GERD (gastroesophageal reflux disease) Essential hypertension Family History Family History Father Hypertension Mother Diabetes CVD (cardiovascular disease) Renal insufficiency Brother In good health Sister In good health Sister In good health Sister No problems noted. Son In good health Son In good health Son In good health Daughter In good health Family history of problems with anesthesia: No Surgical History Surgical History History of nephrolithiasis History of Problems with Anesthesia: No Social History Social History Housing: Apartment Alcohol intake: current Alcohol intake frequency: holidays/special occasions only Alcohol type: beer Patient Tobacco Use Status: Former Tobacco user Tobacco use type: Cigarette Cigarettes Per Day: 2 e-Cigarette/Vaping Use: Never Used Second Hand Smoke Exposure: No Use of substances other than those prescribed or required for medical reasons: No Advance Directives: No Advance Directives Information Provided: Yes service: No Current occupational status: unemployed Cognitive needs: No Hearing needs: No Vision needs: Yes Meds Allergies Allergy/AdvReac Type Severity Reaction Status Date / Time lisinopril Allergy Intermediate dry cough Verified 08/12/25 09:42 Exam Airway Mallampati Class: III TM Dist: <=3cm Neck ROM: Limited Heart: rrr Lungs: cta Assessment and Plan Assessment Anesthesia Assessment: Anesthesia Plan Discussed Final Anesthetic Review Family History of Problems with Anesthesia: No History of Problems with Anesthesia: No NPO: Yes ASA Class: III Final Preanesthetic Review: No Changes in Pt Med Stat, Meds/Allgs Chart Reviewed, Consent Obtained/Reviewed and Anes Risks/Benef Reviewed Patient Risk: Intermediate Procedure Risk: Low Anesthetic Plan Anesthetic Plan: MAC: Disposition: Standard PACU
[2025-08-20 13:44] VITALS: BMI 36.4
[2025-08-20 13:59] VITALS: BP 142/85; PULSE 76; RESP 16; TEMP 36.8; O2SAT 97
[2025-08-20] MEDS: Lactated Ringers 1,000 ML 100 ML IVCONT (14:01)
--- NOTE | 2025-08-20 14:49 | MHC.SHP ---
Pre-Procedural Eval Section A - 24 Hr Update-Section A only Date of Service: 08/20/25 Section B - Complete if H&P > 30 days Chief Complaint: screening,gerd,diarrhea,abnormal findings Details of Present Illness: Ascending aorta dilatation Obesity (BMI 30-39.9) Cough Mild recurrent major depression Asthma Obese Daytime sleepiness MITCHELL (obstructive sleep apnea) Insomnia Anxiety Allergic rhinitis Knee osteoarthritis Mixed hyperlipidemia GERD (gastroesophageal reflux disease) Essential hypertension Surgical History History of nephrolithiasis Present Medications: see Short Stay Collaborative assessment Allergies: Allergies Allergy/AdvReac Type Severity Reaction Status Date / Time lisinopril Allergy Intermediate dry cough Verified 08/12/25 09:42 Review of Systems Review of Systems Comment: Ten point ROS negative Exam Exam Comment: Gen appear: No acute distress HEENT: no icterus Chest: No overt resp distress Abd: soft, nontender, nondistended Psych: Stable affect, answering questions appropriately Neuro: A/Ox3 noted to move all extremities spontaneously Ext: no peripheral edema Plan Diagnosis/Plan: Unchanged I have reviewed the history and physical and performed a pertinent physical examination on my patient. No changes have occurred unless specified. Time Spent With Patient Time: Total time managing care of this patient today ____ minutes.
--- NOTE | 2025-08-20 15:53 | P.OPN-COLO_ITS ---
Colonoscopy Operative Note Operative Note Date of Service: 08/20/25 Narrative: Procedure: Upper endoscopy and colonoscopy Indication: Abd pain, chronic diarrhea Endoscopist: Rachele Marmolejo MD Anesthesia Provider: Giuliana Gregg MD Anesthesia type: MAC Instrument: [id number] and [id number] EGD Procedure:?? The procedure, indications, preparation and potential complications were reviewed with the patient, who indicated understanding and gave written informed consent to proceed. The endoscope was introduced through the mouth, and advanced to the 2nd part of the duodenum. The mucosa was carefully examined on slow withdrawal of the endoscope. The patient tolerated the procedure well. There were no immediate complications.? EGD Findings:? * Esophagus:? Small erosions measuring less than 5 mm noted at the GE junction compatible with grade A esophagitis. The Z-line was at 38 cm and irregular to 36 cm. There was a hiatal hernia with the diaphragmatic pinch at 42 cm. Cold forceps biopsies were taken from GE junction to rule out Seymour's esophagus. * Stomach:? Diffuse congestion, erythema and erosions noted in the entire gastric body and antrum. A few polyps were noted in the cardia the stomach. Cold forceps polypectomy was performed for 1 of them. There was also a 5 mm clean based gastric ulcer in the distal gastric body along the greater curvature. Cold forceps biopsies were taken from the edge of the ulcer. Retroflexion was performed in the cardia that showed Hill grade IV hiatal hernia. Random cold forceps biopsies were taken from the stomach. * Duodenum:? Normal duodenal mucosa. Cold forceps biopsies were taken from the duodenal bulb and 2nd portion of the duodenum to rule out celiac sprue. Colonoscopy Procedure:? The patient was then turned for the colonoscopy. An abdominal binder was placed in the lower abdomen. A digital rectal exam was performed which was abnormal for ext hemorrhoids.? A distal attachment cap was affixed to the tip of the scope and the colonoscope was then inserted through the anus and advanced through the colon and advanced to the cecum at 75 cm and terminal ileum.? Appendiceal orifice and ileocecal valve were identified. Mucosa was carefully examined under high definition white light as the instrument was slowly withdrawn in a retrograde panoramic fashion. Retroflexion was performed in rectum. The procedure was not difficult. The quality of the prep was BBPS: 2+2+3 = adequate Withdrawal time 11 minutes Limitations: No limitations Findings: Mucosa: Normal colon and terminal ileum mucosa. Cold forceps biopsies were taken from the right and left side of the colon to rule out microscopic colitis. Protruding lesions: * One sessile polyp of size 2 mm noted in the ascending colon. Cold forceps polypectomy was performed. The polyp was completely removed and retrieved. * Large internal hemorrhoids without stigmata of recent bleeding. Excavated lesions: * [id number] diverticulosis of left side of the colon. Impression: 1. Grade A esophagitis (biopsy) 2. Hiatal hernia 3. Gastritis (biopsy) 4. Gastric ulcer (biopsy) 5. Normal duodenum (biopsy) 6. Normal colon and terminal ileum mucosa (biopsy) 7. 1 polyp removed 8. Diverticulosis 9. Internal and external hemorrhoids Recommendations:?? * Follow-up path results * Avoid NSAIDs * Switch pantoprazole to esomeprazole BID * A repeat EGD will be booked in a few months to ensure healing * H Pylori treatment if biopsies + * Repeat colonoscopy for CRC screening in 7-10 years.
[2025-08-20 15:59] VITALS: BP 113/71; PULSE 97; RESP 16; TEMP 36.7; O2SAT 96
[2025-08-20 16:14] VITALS: BP 128/86; PULSE 89; RESP 18; TEMP 37.1; O2SAT 97
== END 2025-08-20 16:30 | disposition home or self-care (01) ==
PROVIDERS: PCP Internal Medicine; Visit Provider Internal Medicine
PROC: (CPT 45380; principal; 2025-08-20 15:00)
DX: Z12.11 Encounter for screening for malignant neoplasm of colon (principal); R19.7 Diarrhea, unspecified; R79.89 Other specified abnormal findings of blood chemistry; K25.9 Gastric ulcer, unspecified as acute or chronic, without hemorrhage or perforation; R10.9 Unspecified abdominal pain; K31.7 Polyp of stomach and duodenum; K57.30 Diverticulosis of large intestine without perforation or abscess without bleeding; K64.8 Other hemorrhoids; K64.4 Residual hemorrhoidal skin tags; K21.00 Gastro-esophageal reflux disease with esophagitis, without bleeding; B96.81 Helicobacter pylori [H. pylori] as the cause of diseases classified elsewhere; K29.70 Gastritis, unspecified, without bleeding; K44.9 Diaphragmatic hernia without obstruction or gangrene; K31.A0 Gastric intestinal metaplasia, unspecified; K63.5 Polyp of colon
CPT/HCPCS: 45380; 43239; 88305; 88313; 88342; J2003; J2704

== ENCOUNTER → 2025-08-20 13:11 | Outpatient (BNV) | payer MEDICARE, MEDICAID, SELFPAY | PROVIDERS: PCP Internal Medicine; Visit Provider Internal Medicine | DX: R10.9 Unspecified abdominal pain (principal); K21.00 Gastro-esophageal reflux disease with esophagitis, without bleeding; K29.70 Gastritis, unspecified, without bleeding; K25.9 Gastric ulcer, unspecified as acute or chronic, without hemorrhage or perforation; K52.9 Noninfective gastroenteritis and colitis, unspecified; K63.5 Polyp of colon; K57.90 Diverticulosis of intestine, part unspecified, without perforation or abscess without bleeding; K64.8 Other hemorrhoids | CPT/HCPCS: 43239; 45380 ==

== ENCOUNTER 2025-08-31 11:12 | Outpatient (AMB) | payer MEDICARE, MEDICAID, SELFPAY ==
--- NOTE | 2025-08-31 11:15 | MHC.OFFVIS ---
Vital Signs 08/31/25 11:23 Height 5 ft 6 in Weight 225 lb BMI 36.3 Intake Visit Reasons: s/p double Intake Note: Patient follow up for diarrhea, lab/fecal and EGD/Colonoscopy results Patient cc: gassy, and GERD, denies any other GI issues for this visit. Hot End Operator Required: Yes Hot End Operator Language: Voltage Inspector Services: Hot End Operator Present Hot End Operator Name: Hemal [id number] Information Interpreted: non-clinical & clinical Accompanied by: Self / Same As Patient Allergies lisinopril Allergy (Intermediate, Verified 08/31/25 11:15) dry cough Medication List - Last Reconciled 08/31/25 by Riya Alfred CNP atorvastatin 10 mg PO BEDTIME 90 days bisacodyl 5 mg PO BID cholecalciferol (vitamin D3) 25 mcg PO DAILY 90 days esomeprazole magnesium 20 mg PO BID 90 days hydrocortisone 1% 1 appl [place] BID PRN levofloxacin 500 mg PO DAILY 5 days lidocaine 5% 1 patch topical DAILY losartan 50 mg PO DAILY 90 days miscellaneous medical supply (Blood Pressure Cuff) As directed venlafaxine ER 37.5 mg PO BEDTIME 30 days HPI HPI s/p double: Details: Patient is a 64-year-old male with PMH of obesity, MITCHELL, insomnia, depression, anxiety, hyperlipidemia, hypertension and GERD. FU following EGD and colonoscopy (08/20) to review results, discuss new findings, and address ongoing symptom mgmt (GERD, hemorrhoids). Pt reports improvement in reflux symptoms since starting esomeprazole; ongoing compliance with prescribed regimen. Denies new or worsening dysphagia, abdominal pain, N/V, or weight loss. No reported GI bleeding. Stopped NSAIDs as directed; switched to acetaminophen for arthritis pain. No allergy or intolerance to current meds. No recent changes in bowel habits; requesting topical hemorrhoid cream for PRN use. No concerning features for GI malignancy. Continues dietary modifications as advised; maintains hydration. No recent hospitalizations/urgent care visits. No significant new complaints. 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 Diverticulosis Ascending aorta dilatation Diarrhea Elevated LFTs Obesity (BMI 30-39.9) Cough Mild recurrent major depression Asthma Obese Daytime sleepiness MITCHELL (obstructive sleep apnea) Insomnia Anxiety Allergic rhinitis Knee osteoarthritis Mixed hyperlipidemia GERD (gastroesophageal reflux disease) Essential hypertension Surgical History (Updated 08/31/25 @ 11:28 by Jody Horner) Hx of colonoscopy History of esophagogastroduodenoscopy (EGD) History of nephrolithiasis Family History Father Hypertension Mother Diabetes CVD (cardiovascular disease) Renal insufficiency Brother In good health Sister In good health Sister In good health Sister No problems noted. Son In good health Son In good health Son In good health Daughter In good health Social History Housing: Apartment Alcohol intake: current Alcohol intake frequency: holidays/special occasions only Alcohol type: beer Patient Tobacco Use Status: Former Tobacco user Tobacco use type: Cigarette Cigarettes Per Day: 2 e-Cigarette/Vaping Use: Never Used Second Hand Smoke Exposure: No service: No Current occupational status: unemployed Cognitive needs: No Hearing needs: No Vision needs: Yes Review of Systems Const Reports as per HPI ENT Reports as per HPI Card Reports as per HPI Resp Reports as per HPI GI Reports as per HPI Reports as per HPI Physical Exam Vital Signs: BMI result Body Mass Index 36.3 Const General: healthy appearing, no acute distress and well developed Nutritional Appearance: average body habitus Orientation/consciousness: patient oriented x3 HEENT Head: Yes normal to inspection, Yes normocephalic and Yes atraumatic Face and sinus: Yes normal facial exam Eyes General: appearance normal, both eyes and all related structures Neck Neck: Yes normal visual inspection Resp Effort & Inspection: normal respiratory effort, able to speak in complete sentences, no tracheal deviation and symmetric chest movement Cardio Jugular venous distension: no JVD GI Inspection: Yes obesity Auscultation: normal bowel sounds Neuro General: patient oriented x3 Gait exam (Neuro): Normal gait present Psych Appearance: grossly normal Mental Status: mental status grossly normal Speech and movement: Normal speech and movement present Affect: normal affect Attitude: cooperative Thought process: Normal thought process present Thought content: Normal thought content present Insight: Good insight present (Psych) Judgement: Good judgement present (Psych) Results Reviewed Results Reviewed: Operative Note Date of Service: 08/20/25 Narrative: Procedure: Upper endoscopy and colonoscopy Indication: Abd pain, chronic diarrhea Endoscopist: Rachele Marmolejo MD Anesthesia Provider: Giuliana Gregg MD Anesthesia type: MAC Instrument: [id number]-[id number] and PCF-[id number] EGD Procedure: The procedure, indications, preparation and potential complications were reviewed with the patient, who indicated understanding and gave written informed consent to proceed. The endoscope was introduced through the mouth, and advanced to the 2nd part of the duodenum. The mucosa was carefully examined on slow withdrawal of the endoscope. The patient tolerated the procedure well. There were no immediate complications. EGD Findings: Esophagus: Small erosions measuring less than 5 mm noted at the GE junction compatible with grade A esophagitis. The Z-line was at 38 cm and irregular to 36 cm. There was a hiatal hernia with the diaphragmatic pinch at 42 cm. Cold forceps biopsies were taken from GE junction to rule out Seymour's esophagus. Stomach: Diffuse congestion, erythema and erosions noted in the entire gastric body and antrum. A few polyps were noted in the cardia the stomach. Cold forceps polypectomy was performed for 1 of them. There was also a 5 mm clean based gastric ulcer in the distal gastric body along the greater curvature. Cold forceps biopsies were taken from the edge of the ulcer. Retroflexion was performed in the cardia that showed Hill grade IV hiatal hernia. Random cold forceps biopsies were taken from the stomach. Duodenum: Normal duodenal mucosa. Cold forceps biopsies were taken from the duodenal bulb and 2nd portion of the duodenum to rule out celiac sprue. Colonoscopy Procedure: The patient was then turned for the colonoscopy. An abdominal binder was placed in the lower abdomen. A digital rectal exam was performed which was abnormal for ext hemorrhoids. A distal attachment cap was affixed to the tip of the scope and the colonoscope was then inserted through the anus and advanced through the colon and advanced to the cecum at 75 cm and terminal ileum. Appendiceal orifice and ileocecal valve were identified. Mucosa was carefully examined under high definition white light as the instrument was slowly withdrawn in a retrograde panoramic fashion. Retroflexion was performed in rectum. The procedure was not difficult. The quality of the prep was BBPS: 2+2+3 = adequate Withdrawal time 11 minutes Limitations: No limitations Findings: Mucosa: Normal colon and terminal ileum mucosa. Cold forceps biopsies were taken from the right and left side of the colon to rule out microscopic colitis. Protruding lesions: One sessile polyp of size 2 mm noted in the ascending colon. Cold forceps polypectomy was performed. The polyp was completely removed and retrieved. Large internal hemorrhoids without stigmata of recent bleeding.Excavated lesions: [id number] diverticulosis of left side of the colon. Impression: 1. Grade A esophagitis (biopsy) 2. Hiatal hernia 3. Gastritis (biopsy) 4. Gastric ulcer (biopsy) 5. Normal duodenum (biopsy) 6. Normal colon and terminal ileum mucosa (biopsy) 7. 1 polyp removed 8. Diverticulosis 9. Internal and external hemorrhoids Recommendations: Follow-up path results Avoid NSAIDs Switch pantoprazole to esomeprazole BID A repeat EGD will be booked in a few months to ensure healing H Pylori treatment if biopsies + Repeat colonoscopy for CRC screening in 7-10 years. PATHOLOGY: Collected: 08/20/25 Location: [facility] Received: 08/23/25 Diagnosis A. Duodenum, biopsy: -Duodenal mucosa with preserved villi and no specific change. B. Stomach, random, biopsy: -Gastric antral mucosa with chronic Helicobacter gastritis with mild activity, gland atrophy, and intestinal metaplasia (complete and incomplete); negative for dysplasia. -Gastric body mucosa with chronic Helicobacter gastritis without activity; negative for intestinal metaplasia and dysplasia. C. Gastric ulcer edge, biopsy: -Chronic Helicobacter gastritis with mild activity and intestinal metaplasia (complete), and fragment of inflammatory exudate consistent with ulcer base; negative for dysplasia. D. Gastric polyp/gastric ulcer, biopsy: Gastric antral and body mucosa with chronic Helicobacter gastritis with mild activity; no polyp or ulcer identified; negative for intestinal metaplasia and dysplasia. E. Gastroesophageal junction, biopsy: Squamocolumnar mucosa with hyperplasia, chronic active inflammation, intestinal metaplasia, and surface bacteria consistent with H. pylori; negative for dysplasia (see comment). F. Colon, right, biopsy: Colonic mucosa with lymphoid aggregate and no specific change; no evidence of microscopic colitis. G. Colon, ascending, polyp: Hyperplastic polyp. H. Colon, left, biopsy: Colonic mucosa with no specific change; no evidence of microscopic colitis. Comment: (E): These findings are consistent with Seymour's esophagus if the biopsies were taken from above the anatomic gastroesophageal junction. Clinical and endoscopic correlation is advised. 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 Additional testing: -surveillance EGD in 2 months. -Swallow study ordered to further assess hiatal hernia size and management needs. Meds: - Continue esomeprazole 20mg BID until completion of H. pylori tx?then pause for 4 wks (per HP retesting protocol). - Sucralfate alternative acid suppressant for 4 wk PPI hold interval (after Abx course) as needed to manage rebound reflux. Lifestyle: Continue GERD diet; minimize caffeine, carbonation, acidic/spicy foods. Handout provided. Reinforce elevating HOB, avoid late meals. Referrals: Plan for FU EGD as per Seymour?s guidelines; surgical eval may be indicated if hiatal hernia management FU Plan: Routine GI surveillance per guidelines; reevaluate after completion of current therapy. (2) GERD (gastroesophageal reflux disease): Code(s): K21.9 - Gastro-esophageal reflux disease without esophagitis Category: Medical Qualifiers: Esophagitis presence: with esophagitis Esophagitis bleeding: without hemorrhage Qualified Code(s): K21.00 - Gastro-esophageal reflux disease with esophagitis, without bleeding Plan: as above (3) H pylori ulcer: Code(s): K27.9 - Peptic ulcer, site unspecified, unspecified as acute or chronic, without hemorrhage or perforation; B96.81 - Helicobacter pylori [H. pylori] as the cause of diseases classified elsewhere Category: Medical Plan: Newly identified; tx now initiated. Additional testing: H. pylori breath test scheduled third week of Sep to confirm eradication; hold PPI 4 wks prior. Meds: - Start Quad therapy x14d: metronidazole TID, tetracycline QID, bismuth subsalicylate, and CONTINUE esomeprazole BID through course. - Probiotic BID X 3 days to minimize Abx-associated GI sx. Lifestyle: Continue adequate hydration/diet (bland/low acid, avoid ETOH/caffeine). FU: F2F visit in 3 wks to monitor tolerance/complications; nurse visit for HP test 10/14. (4) Diverticulosis: Comment: 08/20/25 colonoscopy complete with adequate prep- Normal colon and terminal ileum mucosa, 2 mm HP ( ascending), [id number] diverticulosis (left colon), large internal hemorrhoids. Repeat 7-10 years. Code(s): K57.90 - Diverticulosis of intestine, part unspecified, without perforation or abscess without bleeding Category: Medical Plan: Asymptomatic, incidental LLQ on colonoscopy. Education on prevention. Meds: None. Lifestyle: High fiber diet encouraged; Nicaraguan-language handout provided. FU: Repeat colonoscopy in 7-10 yrs. (5) Internal hemorrhoid: Code(s): K64.8 - Other hemorrhoids Category: Medical Plan: Intermittent flares. No concerning rectal sx; normal colonoscopy. Additional testing: None at this time. Meds: Topical hemorrhoid cream as needed. Lifestyle: Fiber, hydration, avoid constipation/straining/prolonged sitting. FU: PRN as needed; readdress if sx worsen. Plan Follow-up: -RN/MA for H pylori retesting October 14 2025 -provider follow up in 3 weeks Time: I spent a total of 45 minutes on the date of encounter which includes: Preparing to see the patient (reviewed previous documentation, test results and medical history) Performing a medically appropriate exam and/or evaluation Ordering medications, tests, and procedures Documenting clinical information in the health record Orders: Orders H Pylori Breath Test 6 Weeks Referrals GI Procedure Notification B96.81 - Helicobacter pylori [H. pylori] as the cause of diseases classified elsewhere, K22.70 - Seymour's esophagus without dysplasia, K27.9 - Peptic ulcer, site unspecified, unspecified as acute or chronic, without hemorrhage or perforation Medications: New bismuth subsalicylate Take two tablets four times daily for 14 days. 524 mg (2 x 262 mg) PO QID 112 tabs 0RF 14 days metronidazole take on tablet three times daily for 14 days 500 mg PO TID 42 tabs 0RF tetracycline Take one tablet four times daily for 14 days 500 mg PO QID 56 caps 0RF 14 days sucralfate Take on tablet two times daily as needed. Take an empty stomach. Avoid antacids within 30 minutes. 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
[2025-08-31 11:23] VITALS: BMI 36.3
== END 2025-08-31 12:29 | disposition home or self-care (01) ==
LOC: HO.HGI 11:12
PROVIDERS: PCP Internal Medicine; Visit Provider Nurse Practitioner Family
DX: K22.70 Barrett's esophagus without dysplasia (principal); K27.9 Peptic ulcer, site unspecified, unspecified as acute or chronic, without hemorrhage or perforation; B96.81 Helicobacter pylori [H. pylori] as the cause of diseases classified elsewhere; K57.90 Diverticulosis of intestine, part unspecified, without perforation or abscess without bleeding; K21.00 Gastro-esophageal reflux disease with esophagitis, without bleeding; K64.8 Other hemorrhoids
CPT/HCPCS: 99215

== ENCOUNTER → 2025-08-31 11:12 | Outpatient (BNVA) | payer MEDICARE, MEDICAID, SELFPAY | PROVIDERS: PCP Internal Medicine; Visit Provider Nurse Practitioner Family | DX: K22.70 Barrett's esophagus without dysplasia (principal); K21.00 Gastro-esophageal reflux disease with esophagitis, without bleeding; K27.9 Peptic ulcer, site unspecified, unspecified as acute or chronic, without hemorrhage or perforation; B96.81 Helicobacter pylori [H. pylori] as the cause of diseases classified elsewhere; K57.90 Diverticulosis of intestine, part unspecified, without perforation or abscess without bleeding; K64.8 Other hemorrhoids; Z98.890 Other specified postprocedural states | CPT/HCPCS: 99212 ==

== ENCOUNTER 2025-09-22 09:05 | Outpatient (AMB) | payer MEDICARE, MEDICAID, SELFPAY ==
--- NOTE | 2025-09-22 09:13 | MHC.OFFVIS ---
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 Patient have question about medication. Also hemorrhoids problems. Industrial Machine System Technician Required: Yes Industrial Machine System Technician [place] [facility] [place] Accompanied by: Self / Same As Patient Allergies lisinopril Allergy (Intermediate, Verified 09/22/25 09:13) dry cough Medication List - Last Reconciled 09/22/25 by Riya Alfred CNP atorvastatin 10 mg PO BEDTIME 90 days bisacodyl 5 mg PO BID cholecalciferol (vitamin D3) 25 mcg PO DAILY 90 days esomeprazole magnesium 20 mg PO BID 90 days hydrocortisone 1% 1 appl [place] BID PRN Lactobacillus acidophilus 10,000 mmu cells PO BID lidocaine 5% 1 patch topical DAILY losartan 50 mg PO DAILY 90 days miscellaneous medical supply (Blood Pressure Cuff) As directed sucralfate 1 g PO BID venlafaxine ER 37.5 mg PO BEDTIME 30 days HPI HPI 3w: Details: Patient is a 64-year-old male with PMH of obesity, MITCHELL, insomnia, depression, anxiety, hyperlipidemia, hypertension and GERD. Follow-up visit regarding Helicobacter pylori infection treatment. The patient's recent EGD results were suggestive of H. pylori, and he subsequently started quadruple therapy. He reports he has now finished the course of tetracycline and metronidazole, with his last dose on this past Saturday. Since starting the antibiotics, he has experienced an increase in bowel movement frequency with loose stools. He also reports some mild stomach pain. His appetite has slightly improved. He is currently taking sucralfate 1 gm twice a day. He has stopped taking naprosyn 500 mg as advised due to concern for stomach irritation. His other medications include vitamin D3, losartan for hypertension, and atorvastatin. The patient's past medical history is significant for arthritis, for which he is disabled. He also has a history of hemorrhoids and reports a previously prescribed cream has been helpful. 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 Diverticulosis Ascending aorta dilatation Diarrhea Elevated LFTs Obesity (BMI 30-39.9) Cough Mild recurrent major depression Asthma Obese Daytime sleepiness MITCHELL (obstructive sleep apnea) Insomnia Anxiety Allergic rhinitis Knee osteoarthritis Mixed hyperlipidemia GERD (gastroesophageal reflux disease) Essential hypertension Surgical History Hx of colonoscopy History of esophagogastroduodenoscopy (EGD) History of nephrolithiasis Family History Father Hypertension Mother Diabetes CVD (cardiovascular disease) Renal insufficiency Brother In good health Sister In good health Sister In good health Sister No problems noted. Son In good health Son In good health Son In good health Daughter In good health Social History Housing: Apartment Alcohol intake: current Alcohol intake frequency: holidays/special occasions only Alcohol type: beer Patient Tobacco Use Status: Former Tobacco user Tobacco use type: Cigarette Cigarettes Per Day: 2 e-Cigarette/Vaping Use: Never Used Second Hand Smoke Exposure: No service: No Current occupational status: unemployed Cognitive needs: No Hearing needs: No Vision needs: Yes Review of Systems Const Reports as per HPI ENT Reports as per HPI Card Reports as per HPI Resp Reports as per HPI GI Reports as per HPI Reports as per HPI Physical Exam Const General: healthy appearing, no acute distress and well developed Nutritional Appearance: average body habitus Orientation/consciousness: patient oriented x3 HEENT Head: Yes normal to inspection, Yes normocephalic and Yes atraumatic Face and sinus: Yes normal facial exam Eyes General: appearance normal, both eyes and all related structures Neck Neck: Yes normal visual inspection Resp Effort & Inspection: normal respiratory effort, able to speak in complete sentences, no tracheal deviation and symmetric chest movement Cardio Jugular venous distension: no JVD GI Inspection: Yes normal to inspection, No distended and Yes obesity Palpation (GI): Soft to palpation, not firm, nontender and No hepatosplenomegaly present Auscultation: normal bowel sounds Neuro General: patient oriented x3 Gait exam (Neuro): Normal gait present Psych Appearance: grossly normal Mental Status: mental status grossly normal Speech and movement: Normal speech and movement present Affect: normal affect Attitude: cooperative Thought process: Normal thought process present Thought content: Normal thought content present Insight: Good insight present (Psych) Judgement: Good judgement present (Psych) Assessment & Plan Assessment & Plan (1) H pylori ulcer: Code(s): K27.9 - Peptic ulcer, site unspecified, unspecified as acute or chronic, without hemorrhage or perforation; B96.81 - Helicobacter pylori [H. pylori] as the cause of diseases classified elsewhere Category: Medical Plan: The patient has completed his antibiotic course for H. pylori. - He is experiencing loose stools, which is a common medication side effect. - A prescription for a probiotic was sent to the pharmacy to help restore good bacteria and regulate his bowels. - The patient will continue sucralfate as needed for symptoms related to stomach inflammation. - He was instructed to continue holding esomeprazole, as it can interfere with testing, and to restart it after the re-test is complete. - A follow-up appointment will be scheduled for H. pylori re-testing during the week of October 18. - Repeat EGD scheduled for 12/16 (2) Internal hemorrhoid: Code(s): K64.8 - Other hemorrhoids Category: Medical Plan: The patient reports the prescribed cream has been helpful. - He was advised to avoid straining, prolonged sitting, and heavy lifting to prevent worsening the condition. Plan Follow-up: -repeat H. pylori testing of October 18 -provider f/u as scheduled 12/30/25 Time: I spent a total of 30 minutes on the date of encounter which includes: Preparing to see the patient (reviewed previous documentation, test results and medical history) Performing a medically appropriate exam and/or evaluation Ordering medications, tests, and procedures Documenting clinical information in the health record Medications: New Lactobacillus rhamnosus GG (Culturelle) Take one tablet daily for 30 days. 1 cap PO DAILY 30 caps 0RF Coding Level of Care Code Established Pt Est Pt Level 4 (23329) Patient Type Established Diagnoses H pylori ulcer K27.9; B96.81 Internal hemorrhoid K64.8
[2025-09-22 09:22] VITALS: BP 132/81; PULSE 71; BMI 36.3
== END 2025-09-22 09:47 | disposition home or self-care (01) ==
LOC: HO.HGI 09:06
PROVIDERS: PCP Internal Medicine; Visit Provider Nurse Practitioner Family
DX: K27.9 Peptic ulcer, site unspecified, unspecified as acute or chronic, without hemorrhage or perforation (principal); B96.81 Helicobacter pylori [H. pylori] as the cause of diseases classified elsewhere; K64.8 Other hemorrhoids
CPT/HCPCS: 99214

== ENCOUNTER → 2025-09-22 09:05 | Outpatient (BNVA) | payer MEDICARE, MEDICAID, SELFPAY | PROVIDERS: PCP Internal Medicine; Visit Provider Nurse Practitioner Family | DX: K22.70 Barrett's esophagus without dysplasia (principal); B96.81 Helicobacter pylori [H. pylori] as the cause of diseases classified elsewhere; K64.8 Other hemorrhoids; K27.9 Peptic ulcer, site unspecified, unspecified as acute or chronic, without hemorrhage or perforation; Z87.891 Personal history of nicotine dependence | CPT/HCPCS: 99212 ==